=== PATIENT | male | born 1955 | race African-American/Black ===

== ENCOUNTER → 2017-11-01 | Outpatient (CLI) | payer MEDICARE, MEDICAID ==
--- NOTE | 2017-11-01 14:42 | RADIOLOGY REPORT (SQ) ---
EXAM DESCRIPTION: CHEST PA/LATERAL COMPLETED DATE/TIME: 11/01/2017 2:32 pm REASON FOR STUDY: PRE OP COMPARISON: 05/23/2015 EXAM PARAMETERS: NUMBER OF VIEWS: two views TECHNIQUE: Digital Frontal and Lateral radiographic views of the chest acquired. RADIATION DOSE: NA LIMITATIONS: none FINDINGS: LUNGS AND PLEURA: Mild hyperinflation of the lungs, stable finding. Minimal scarring or atelectasis at the lung bases. No acute pulmonary consolidation. No pneumothorax or pleural effusio n. MEDIASTINUM AND HILAR STRUCTURES: No masses or contour abnormalities. HEART AND VASCULAR STRUCTURES: Heart normal size. No evidence for failure. BONES: No acute findings. HARDWARE: None in the chest. OTHER: Partially visualized bilateral shoulder prostheses. IMPRESSION: 1 No significant interval changes since the prior examination dated 05/23/2015. Mild hy perinflation of the lungs and bibasilar minimal scar or atelectasis. No acute findings. TECHNICAL DOCUMENTATION: JOB ID: [id number] [employer]- All Rights Reserved Reading location - IP/workstation name: [email or web address]
[2017-11-01 14:53] LABS: ABSOLUTE EOSINOPHILS # (AUTO) 0.1 10^3/uL (0.0-0.6); ABSOLUTE MONOCYTES (AUTO) 0.7 10^3/uL (0.1-1.4); ABSOLUTE NEUT (AUTO) 3.7 10^3/uL (1.7-8.2); BASOPHILS % (AUTO) 0.4 % (0-2); EOSINOPHILS % (AUTO) 2.1 % (0-6); HEMATOCRIT 43.8 % (37.9-51.0); HEMOGLOBIN 14.7 g/dL (13.5-17.0); LYMPHOCYTES % (AUTO) 30.4 % (13-45); MEAN CORPUSCULAR HEMOGLOBIN 30.5 pg (27.0-33.4); MEAN CORPUSCULAR HGB CONC 33.6 g/dL (32.0-36.0); MEAN CORPUSCULAR VOLUME 91 fl (80-97); MONOCYTES % (AUTO) 10.1 % (3-13); PLATELET COUNT 323 10^3/uL (150-450); RED BLOOD COUNT 4.81 10^6/uL (4.35-5.55); RED CELL DISTRIBUTION WIDTH 13.3 % (11.5-14.0); TOTAL CELLS COUNTED % (AUTO) 100 %; WHITE BLOOD COUNT 6.5 10^3/uL (4.0-10.5)
[2017-11-01 14:58] LABS: APPEARANCE,URINE CLEAR; BILIRUBIN,URINE NEGATIVE (NEGATIVE); COLOR,URINE STRAW; GLUCOSE, URINE NEGATIVE (NEGATIVE); KETONES,URINE NEGATIVE (NEGATIVE); LEUKOCYTE ESTERASE,URINE NEGATIVE (NEGATIVE); NITRITE,URINE NEGATIVE (NEGATIVE); PROTEIN,URINE NEGATIVE (NEGATIVE); URINE SPECIFIC GRAVITY 1.004; UROBILINOGEN,URINE NEGATIVE mg/dL (<2.0)
[2017-11-01 15:24] LABS: ANION GAP 8 (5-19); BLOOD UREA NITROGEN 19 mg/dL (7-20); CALCIUM 9.8 mg/dL (8.4-10.2); CARBON DIOXIDE 31 mmol/L (22-30); CHLORIDE 101 mmol/L (98-107); GLUCOSE 90 mg/dL (75-110); POTASSIUM 4.8 mmol/L (3.6-5.0); SODIUM 140.2 mmol/L (137-145)
--- NOTE | 2017-11-01 19:43 | EKG REPORT ---
SEVERITY:- ABNORMAL ECG - SINUS RHYTHM LAD, CONSIDER LEFT ANTERIOR FASCICULAR BLOCK + IRBBB : Confirmed by: Curtis James MD 01-Nov-2017 19:43:07
== END ==
LOC: OD 13:52
PROVIDERS: ATTEND Orthopaedic Surgery
DX: M17.11 Unilateral primary osteoarthritis, right knee (principal); Z01.818 Encounter for other preprocedural examination
CPT/HCPCS: 36415; 71046; 80048; 81001; 85025; 93005; 93010

== ENCOUNTER 2017-11-22 08:45 | Inpatient (IN) | payer MEDICARE, MEDICAID ==
--- NOTE | 2017-11-29 09:27 | Physician Advisory Note ---
Physician Advisor ProgressNote .: Pursuant to the plan for Lola Winter, I have reviewed the medical record for this patient. Physician Advisor Statement: Status: 62yo with past bilat shoulder replacement/Lt ankle fx, PVD, asthma, lung collapse in past, past cocaine addiction, with OA Rt knee not sufficiently responsive to NSAIDS & injection, having 10/10 pain with walking, signif night pain, buckling/swelling/popping/crackling, unable to walk >100 ft without stopping due to pain, unable to walk up a flight of stairs or do vigorous activities, limited quite a lot with bending/kneeling/stooping, PROMIS score 33. Attending, please explicitly document "I fully expect patient to require 2MNs post-op because " [expect post-op pain management problems due to past cocaine addiction? concern for respiratory problems post-op? ...], or consider doing surgery as an outpatient (& changing to Inpatient the next day, documenting reasons, if pt unable to safely go home then). Surgical necessity: Please document all specific pre-op x-ray/scan findings present that [facility] looks for: subchondral cysts, subchondral sclerosis, periarticular osteophytes, joint space narrowing, joint subluxation, AVN/ osteonecrosis). As usual, exam findings are beautifully documented, along with nonsurgical options tried. Thanks! CK
[2017-12-01] MEDS ORDERED: IBUPROFEN 800 MG in NORMAL SALINE 250 ML IV PRN (05:00)
[2017-12-01] MEDS ORDERED: OXYCODONE HCL SR 10 MG TABLET PO PRN (05:00)
[2017-12-01] MEDS ORDERED: BUPIVACAINE INJ/PF LIPOSOME/PF 266 MG/20 ML SDV INJ PRN (05:00)
[2017-12-01] MEDS ORDERED: CEFAZOLIN INJ 1 GM VIAL IV PRN (05:00)
[2017-12-01] MEDS ORDERED: LANSOPRAZOLE 15 MG TAB.RAP.DR PO PRN (05:00)
[2017-12-01] MEDS ORDERED: VANCOMYCIN HCL 1,000 MG in DEXTROSE 5%-WATER 250 ML IV PRN (05:00)
[2017-12-01] MEDS ORDERED: LACTATED RINGERS 1000 ML IV PRN (05:00)
[2017-12-01] MEDS ORDERED: BUPIVACAINE INJ/PF LIPOSOME/PF 266 MG/20 ML SDV ONE (07:57)
[2017-12-01] MEDS ORDERED: THROMBIN (BOVINE) 5000 UNIT EPITAXIS KIT ONE (07:57)
[2017-12-01] MEDS ORDERED: THROMBIN (BOVINE) TOPICAL 20000 UNIT VIAL ONE (07:57)
[2017-12-01] MEDS ORDERED: LIDOCAINE 2% INJ-PF (20 MG/ML) 2 ML AMPUL ONE (09:12)
[2017-12-01] MEDS ORDERED: FENTANYL CITRATE INJ/PF 100 MCG/2 ML AMPUL ONE (09:36)
[2017-12-01] MEDS ORDERED: MIDAZOLAM 2 MG/2 ML INJ ONE (09:36)
[2017-12-01] MEDS ORDERED: PROPOFOL INJ 200 MG/20 ML VIAL IV ONE (09:37)
[2017-12-01] MEDS ORDERED: TRANEXAMIC ACID INJ/PF 1,000 MG/10 ML SDV IV ONE ×2 (09:37→14:00)
[2017-12-01] MEDS ORDERED: EPHEDRINE SULFATE INJ 50 MG/1 ML AMPULE ONE (09:37)
[2017-12-01] MEDS ORDERED: TETRACAINE HCL/PF 20MG/2ML AMPULE (SPINAL) ONE (10:38)
--- NOTE | 2017-12-01 11:51 | Operative Report ---
Operative Report DATE OF SURGERY: 12/01/17 PREOPERATIVE DIAGNOSIS: Right knee arthritis OPERATION: Right knee arthroplasty SURGEON: SADIE KING ANESTHESIA: Spinal TISSUE REMOVED OR ALTERED: Bone to pathology ESTIMATED BLOOD LOSS: 100 PROCEDURE: Implants used: Femur: Naveen triathlon size 6 CR femur Tibia: 5 tibia Tibial liner: 9 mm CS insert Patella: 38 mm oval patella Procedure with the patient supine on the operating table the right the limb is prepped and draped in a sterile fashion. The limb was elevated for exsanguination and the tourniquet inflated to 280 torr. A standard midline median parapatellar approach the knee is taken. Access is gained to the femoral canal through the intercondylar notch. Intramedullary alignment instrumentation used to resect 10 mm of distal femur in 5 of valgus. Sizing guide indicated a size 6 femur. Appropriate cutting jig is then used to fashion anterior posterior and chamfer cuts. A trial reduction femurs performed and this is judged to be adequate. Attention was next turned to the tibia. Using an extra medullary alignment system 9 millimeters was resected off the lateral tibial plateau. This is sized to a size 5 tibia. A trial reduction was now performed with a 6 femur and a 5 tibia using a 9 millimeters spacer. It is full extension and central patellofemoral tracking. The articular surface the patella was next resected using an oscillating saw. All trial implants were removed. Polymethylmethacrylate is mixed and used to cement the above implants in place. On adequate curing the cement excess cement was removed the tourniquet was deflated hemostasis obtained the wound is then closed in layers using interrupted Vicryl followed by bri. A sterile compressive dressing was applied and the patient returned to recovery room in satisfactory condition.
[2017-12-01] MEDS ORDERED: ACETAMINOPHEN 325 MG TABLET PO PRN (11:52)
[2017-12-01] MEDS ORDERED: RINGERS SOLUTION,LACTATED 1,000 ML IV PRN (11:52)
[2017-12-01] MEDS ORDERED: MORPHINE SULFATE 10 MG/ML INJ IM PRN (11:52)
[2017-12-01] MEDS ORDERED: ONDANSETRON HCL INJ/PF 4 MG/2 ML SDV IV PRN (11:52)
[2017-12-01] MEDS ORDERED: MAG HYDROX/AL HYDROX/SIMETH SUSP 30 ML UDCUP PO PRN (11:52)
[2017-12-01] MEDS ORDERED: ONDANSETRON 4 MG TAB.RAPDIS PO PRN (11:52)
[2017-12-01] MEDS ORDERED: MORPHINE SULFATE 10 MG/ML INJ IV PRN ×2 (11:52)
[2017-12-01] MEDS ORDERED: DIPHENHYDRAMINE HCL 50 MG/ML VIAL IV PRN (11:52)
--- NOTE | 2017-12-01 13:28 | RADIOLOGY REPORT (SQ) ---
EXAM DESCRIPTION: KNEE RIGHT 2 VIEWS COMPLETED DATE/TIME: 12/01/2017 12:41 pm REASON FOR STUDY: Post OP -Long Cassette in PACU M17.11 UNILATERAL PRIMARY OSTEOARTHRITIS, RIGHT KN EE COMPARISON: November 2010 NUMBER OF VIEWS: 2 view(s). TECHNIQUE: Digital radiographic images of the right knee post-procedure. LIMITATIONS: None. FINDINGS: BONES: No worrisome or unexpected findings post-procedure. DEVICE: Patient is status post right total knee replacement. The prosthesis appears well seated in t he distal femur and proximal tibia in the projections obtained. The previously described medullary c alcifications in the distal femur and proximal tibia are again identified. In the lateral projection there appears to be a bony defect in the distal femur. SOFT TISSUES: No worrisome findings. Expected postoperative soft tissue changes. IMPRESSION: SATISFACTORY POSTOPERATIVE RIGHT KNEE. TECHNICAL DOCUMENTATION: JOB ID: [id number] [employer]- All Rights Reserved Reading location - IP/workstation name: [email or web address]
[2017-12-01] MEDS: OXYCODONE HCL IR 5 MG TABLET PO PRN (15:25)
[2017-12-01] MEDS: PREGABALIN 75 MG CAPSULE PO SCH (17:49)
[2017-12-01] MEDS: SENNOSIDES/DOCUSATE 8.6-50 MG 1 EACH TABLET PO SCH (17:50)
[2017-12-01] MEDS: IBUPROFEN 800 MG in NORMAL SALINE 250 ML IV SCH (17:50)
[2017-12-01] MEDS: MORPHINE SULFATE 10 MG/ML INJ IV PRN ×5 (18:42→23:55)
[2017-12-01] MEDS: FLUTICASONE/SALMETEROL DISKUS 250-50 MCG/DOSE IH SCH (21:52)
[2017-12-01] MEDS: OXYCODONE HCL SR 10 MG TABLET PO SCH (21:52)
[2017-12-01] MEDS ORDERED: ZOLPIDEM TARTRATE 5 MG TABLET PO PRN (22:00)
[2017-12-01] MEDS ORDERED: VANCOMYCIN HCL 1,000 MG in DEXTROSE 5%-WATER 250 ML IV ONE (23:52)
[2017-12-02] MEDS: IBUPROFEN 800 MG in NORMAL SALINE 250 ML IV SCH ×3 (01:44→16:59)
[2017-12-02] MEDS: MORPHINE SULFATE 10 MG/ML INJ IV PRN ×6 (01:44→16:56)
[2017-12-02] MEDS: LANSOPRAZOLE 30 MG TAB.RAP.DR PO SCH (05:45)
[2017-12-02 06:43] LABS: HEMATOCRIT 37.8 % (37.9-51.0); HEMOGLOBIN 12.7 g/dL (13.5-17.0); MEAN CORPUSCULAR HEMOGLOBIN 31.1 pg (27.0-33.4); MEAN CORPUSCULAR HGB CONC 33.6 g/dL (32.0-36.0); MEAN CORPUSCULAR VOLUME 92 fl (80-97); PLATELET COUNT 253 10^3/uL (150-450); RED BLOOD COUNT 4.09 10^6/uL (4.35-5.55); RED CELL DISTRIBUTION WIDTH 13.3 % (11.5-14.0); WHITE BLOOD COUNT 8.8 10^3/uL (4.0-10.5)
[2017-12-02 07:11] LABS: ANION GAP 9 (5-19); BLOOD UREA NITROGEN 14 mg/dL (7-20); CALCIUM 8.9 mg/dL (8.4-10.2); CARBON DIOXIDE 28 mmol/L (22-30); CHLORIDE 98 mmol/L (98-107); GLUCOSE 120 mg/dL (75-110); POTASSIUM 5.1 mmol/L (3.6-5.0); SODIUM 135.1 mmol/L (137-145)
--- NOTE | 2017-12-02 07:20 | PDOC PROGRESS REPORT ---
Subjective Progress Note for:: 12/02/17 Reason For Visit: RIGHT KNEE ARTHRITIS Patient is a 62-year-old black male postop day 1 from right knee arthroplasty. Because of a prolonged spinal anesthetic the patient was not seen by physical therapy yesterday has not yet been mobilized. There has been some drainage to the dressing which has been reinforced. Ongoing issues with pain control. Physical Exam Vital Signs: Temp Pulse Resp BP Pulse Ox 36.8 C 74 19 134/80 H 95 12/02/17 00:00 12/02/17 00:00 12/02/17 00:00 12/02/17 00:00 12/02/17 00:00 Intake & Output 11/30/17 12/01/17 12/02/17 06:59 06:59 06:59 Intake Total 4928 Output Total 2500 Balance 2428 Weight 88.9 kg General appearance: PRESENT: mild distress Head exam: PRESENT: normocephalic Respiratory exam: PRESENT: unlabored Cardiovascular exam: PRESENT: RRR Pulses: PRESENT: +1 pedal pulses bilateral Vascular exam: PRESENT: normal capillary refill GI/Abdominal exam: PRESENT: soft Rectal exam: PRESENT: deferred Extremities exam: PRESENT: other - Right lower extremity dressing in place. This is been reinforced by nursing. Distal neurovascular examination is intact. Neurological exam: PRESENT: alert, awake, oriented to person, oriented to place , oriented to time, oriented to situation. ABSENT: motor sensory deficit Psychiatric exam: PRESENT: agitated Skin exam: PRESENT: dry, intact, warm. ABSENT: cyanosis, rash Results Impressions: Knee X-Ray 12/01/17 11:53 IMPRESSION: SATISFACTORY POSTOPERATIVE RIGHT KNEE. Status: Imported from PACS Assessment & Plan - Diagnosis (1) Arthritis of right knee Is this a current diagnosis for this admission?: Yes Plan: 62-year-old black male status post right knee arthroplasty postop day 1. Patient has not been mobilized with physical therapy has ongoing pain issues. Patient is not a suitable candidate for discharge today. His inpatient status will be continued. Anticipate discharge home tomorrow with home health services. - Time Time Spent with patient: 15-24 minutes Anticipated discharge: Home with Homehealth Within: within 24 hours
[2017-12-02] MEDS: OXYCODONE HCL SR 10 MG TABLET PO SCH ×2 (09:47→21:35)
[2017-12-02] MEDS: SENNOSIDES/DOCUSATE 8.6-50 MG 1 EACH TABLET PO SCH ×2 (09:47→17:01)
[2017-12-02] MEDS: PREGABALIN 75 MG CAPSULE PO SCH ×2 (09:48→17:01)
[2017-12-02] MEDS ORDERED: ASPIRIN 81 MG TABLET, ENT COATED PO SCH (10:00)
[2017-12-02] MEDS ORDERED: PRENATAL VITAMIN W DHA CAPSULE PO SCH (10:00)
[2017-12-02] MEDS: FLUTICASONE/SALMETEROL DISKUS 250-50 MCG/DOSE IH SCH ×2 (10:05→21:36)
[2017-12-03 00:12] VITALS: BP 120/73
[2017-12-03] MEDS: IBUPROFEN 800 MG in NORMAL SALINE 250 ML IV SCH (02:36)
[2017-12-03] MEDS: OXYCODONE HCL IR 5 MG TABLET PO PRN (03:28)
[2017-12-03 05:20] LABS: HEMATOCRIT 33.4 % (37.9-51.0); HEMOGLOBIN 11.3 g/dL (13.5-17.0); MEAN CORPUSCULAR HEMOGLOBIN 31.1 pg (27.0-33.4); MEAN CORPUSCULAR HGB CONC 33.9 g/dL (32.0-36.0); MEAN CORPUSCULAR VOLUME 92 fl (80-97); PLATELET COUNT 243 10^3/uL (150-450); RED BLOOD COUNT 3.64 10^6/uL (4.35-5.55); RED CELL DISTRIBUTION WIDTH 13.2 % (11.5-14.0); WHITE BLOOD COUNT 9.4 10^3/uL (4.0-10.5)
[2017-12-03] MEDS: LANSOPRAZOLE 30 MG TAB.RAP.DR PO SCH (05:30)
--- NOTE | 2017-12-03 06:42 | PDOC DISCHARGE SUMMARY ---
General - Admit/Disc Date/PCP Admission Date/Primary Care Provider: 12/01/17 08:00 POLLO BESS MD Discharge Date: 12/03/17 - Discharge Diagnosis (1) Arthritis of right knee Is this a current diagnosis for this admission?: Yes - Additional Information Resuscitation Status: Full Code Discharge Diet: As Tolerated, Regular Discharge Activity: Balance Activity w/Rest, No Driving, No tub bath Home Medications: Aspirin [Ecotrin 81 mg EC Tablet] 81 mg PO DAILY 12/01/17 Fluticasone/Salmeterol [Advair 250-50 Diskus 14 Dose/Diskus] 1 puff IH Q12 12/01 Gabapentin [Neurontin] 600 mg PO Q8 12/01/17 Montelukast Sodium [Singulair 10 mg Tablet] 10 mg PO QPM 12/01/17 Sildenafil Citrate [Viagra] 100 mg PO DAILYP PRN 12/01/17 Aspirin [Ecotrin 81 mg EC Tablet] 81 mg PO DAILY tabec 12/03/17 Oxycodone HCl [Oxy-Ir 5 mg Tablet] 5 mg PO Q6HP PRN tablet 12/03/17 History of Present Illness History of Present Illness: SANDEEP GONZALEZ is a 62 year old male with progressive right knee pain and functional disability secondary osteoarthritis. Patient is admitted for elective right knee arthroplasty. Hospital Course Hospital Course: Patient is admitted through the operating room where he undergoes uncomplicated right knee arthroplasty. Is returned to floor in satisfactory condition. He is not seen by physical therapy in the operative day because of prolonged spinal anesthetic. He subsequently seen by physical therapy on postop day 1 and makes excellent progress with physical therapy ambulating 200 feet. Dressing is changed on postop day 2 by myself. Wound is clean dry and intact. Patient is subsequent ready for discharge home with home health services. Physical Exam Vital Signs: Temp Pulse Resp BP Pulse Ox 36.4 C 103 H 18 120/73 92 12/03/17 00:00 12/03/17 00:00 12/03/17 00:00 12/03/17 00:00 12/03/17 00:00 Intake & Output 12/01/17 12/02/17 12/03/17 06:59 06:59 06:59 Intake Total 4928 1015 Output Total 2500 Balance 2428 1015 Weight 88.9 kg 97.9 kg General appearance: PRESENT: no acute distress Head exam: PRESENT: normocephalic Respiratory exam: PRESENT: unlabored Cardiovascular exam: PRESENT: RRR Pulses: PRESENT: +1 pedal pulses bilateral Vascular exam: PRESENT: normal capillary refill GI/Abdominal exam: PRESENT: soft Rectal exam: PRESENT: deferred Extremities exam: PRESENT: other - Right knee wound is well approximated with bri. Is clean and dry without drainage or erythema. Mild induration and mild tenderness. Neurological exam: PRESENT: alert, awake, oriented to person, oriented to place , oriented to time, oriented to situation. ABSENT: motor sensory deficit Psychiatric exam: PRESENT: appropriate affect, normal mood. ABSENT: homicidal ideation, suicidal ideation Skin exam: PRESENT: dry, intact, warm. ABSENT: cyanosis, rash Results Laboratory Results: 12/03/17 04:38 12/02/17 05:40 12/02/17 12/02/17 12/03/17 05:40 05:40 04:38 WBC 8.8 9.4 RBC 4.09 L 3.64 L Hgb 12.7 L 11.3 L Hct 37.8 L 33.4 L MCV 92 92 MCH 31.1 31.1 MCHC 33.6 33.9 RDW 13.3 13.2 Plt Count 253 243 Sodium 135.1 L Potassium 5.1 H Chloride 98 Carbon Dioxide 28 Anion Gap 9 BUN 14 Creatinine 0.91 Est GFR ( Amer) > 60 Est GFR (Non-Af Amer) > 60 Glucose 120 H Calcium 8.9 Impressions: Knee X-Ray 12/01/17 11:53 IMPRESSION: SATISFACTORY POSTOPERATIVE RIGHT KNEE. Status: Imported from PACS Qualifiers - * PATIENT BEING DISCHARGED WITH ANY OF THE FOLLOWING DIAGNOSIS: No VTE patient discharged on overlapping Therapy?: Yes Plan Discharge Plan: Patient to be discharged home with home health services and DME. Follow-up with Dr. Soto and [facility] for surgery in 2 weeks for staple removal.
== END 2017-12-03 09:52 | disposition home health service (06) | DRG 470 ==
LOC: INOR 12-01 08:00 → 4S 12-01 13:06
PROVIDERS: ADMIT Orthopaedic Surgery; ATTEND Orthopaedic Surgery
PROC: 0SRC0J9 Replacement of Right Knee Joint with Synthetic Substitute, Cemented, Open Approach (ICD-10-PCS; principal; 2017-12-01 10:15)
DX: M17.11 Unilateral primary osteoarthritis, right knee (principal); I73.9 Peripheral vascular disease, unspecified; J45.909 Unspecified asthma, uncomplicated; Z96.612 Presence of left artificial shoulder joint; Z96.611 Presence of right artificial shoulder joint; Z79.82 Long term (current) use of aspirin; Z79.899 Other long term (current) drug therapy; Z82.3 Family history of stroke; Z80.9 Family history of malignant neoplasm, unspecified
CPT/HCPCS: 01402; 36415; 80048; 85027; 88305; 88311; 94799; C1877; C2625; C9290; G8987-GO; G8988-GO; G8989-GO; J0690; J1741; J2250; J2270; J2704; J3010; J3370; J3490; J7050; J7060

== ENCOUNTER 2018-04-27 18:41 | Emergency (ER) | payer MEDICARE, MEDICAID ==
[2018-04-27] MEDS ORDERED: HYDROMORPHONE HCL INJ/PF 2 MG/ML AMPULE IM ONE (19:41)
--- NOTE | 2018-04-27 19:43 | ER Document Report ---
HPI - HPI Patient complains to provider of: Left hip pain Onset: Other - 5 days Onset/Duration: Persistent Quality of pain: Sharp Pain Level: 5 Context: She presents complaining of left hip pain for the past 5 days that got worse today. Patient denies any injury. Patient does have a recent right knee surgery in November of this year and still has continued right knee pain since his surgery. Patient denies any fever. Associated Symptoms: Other - Left hip pain Exacerbated by: Standing, Movement, Walking Relieved by: Denies Similar symptoms previously: Yes Recently seen / treated by doctor: No - ROS ROS below otherwise negative: Yes Systems Reviewed and Negative: Yes All other systems reviewed and negative - CONSTITUTIONAL Constitutional: DENIES: Fever, Chills - NEURO Neurology: DENIES: Headache - REPRODUCTIVE Reproductive: DENIES: : - MUSCULOSKELETAL Musculoskeletal: REPORTS: Extremity pain. DENIES: Back Pain, Neck Pain - DERM Skin Color: Normal Skin Problems: None Past Medical History - General Information source: Patient - Social History Smoking Status: Never Smoker Frequency of alcohol use: Occasional Drug Abuse: None Occupation: None Lives with: Spouse/Significant other Family History: Malignancy, Other - Asthma - Past Medical History Cardiac Medical History: Reports: Hx Peripheral Vascular Disease Pulmonary Medical History: Reports: Hx Asthma Neurological Medical History: Denies: Hx Cerebrovascular Accident, Hx Seizures Renal/ Medical History: Denies: Hx Peritoneal Dialysis Malignancy Medical History: Denies Hx Lung Cancer GI Medical History: Reports: Hx Gastroesophageal Reflux Disease Musculoskeletal Medical History: Reports Hx Arthritis - knees, shoulders, Reports Hx Musculoskeletal Trauma, Reports Other - Chronic back pain Traumatic Medical History: Reports: Hx Fractures - left ankle Past Surgical History: Reports: Hx Orthopedic Surgery - B shoulders, R ankle, R arm - Immunizations Immunizations up to date: No Hx Diphtheria, Pertussis, Tetanus Vaccination: No Hx Pneumococcal Vaccination: 07/02/12 Vertical Provider Document - CONSTITUTIONAL Agree With Documented VS: Yes Exam Limitations: No Limitations General Appearance: WD/WN, No Apparent Distress - INFECTION CONTROL TRAVEL OUTSIDE OF THE [place] IN LAST 30 DAYS: No - HEENT HEENT: Atraumatic, Normocephalic - NECK Neck: Normal Inspection - RESPIRATORY Respiratory: Breath Sounds Normal, No Respiratory Distress - CARDIOVASCULAR Cardiovascular: Regular Rate, Regular Rhythm Pulses: Normal: Dorsalis pedis - BACK Back: Normal Inspection. negative: CVA Tenderness-Right, CVA Tenderness-Left - MUSCULOSKELETAL/EXTREMETIES Musculoskeletal/Extremeties: Tender - left hip tenderness, pain increases with abduction and flexion, Edema - 2+ edema to right knee joint, patient with physio -tape overlying joint, normal skin color and temperature. negative: Eccymosis - NEURO Level of Consciousness: Awake, Alert, Appropriate Motor/Sensory: No Motor Deficit - DERM Integumentary: Warm, Dry, No Rash Course - Re-evaluation Re-evalutation: 04/27/18 20:58 Patient reports that he is been eating while lying down in bed and now is having heartburn symptoms. Patient states this is typical of heartburn he usually has and would like something while he is here. Patient given a copy of his radiology report and encouraged to follow-up with his orthopedic surgeon for further evaluation. Patient states he has an appointment with his doctor tomorrow. - Vital Signs Vital signs: Temp Pulse Resp BP Pulse Ox 98.8 F 90 18 135/80 H 94 04/27/18 18:42 04/27/18 18:42 04/27/18 18:42 04/27/18 18:42 04/27/18 18:42 - Diagnostic Test Radiology reviewed: Image reviewed, Reports reviewed Discharge - Discharge Clinical Impression: Arthritis GERD (gastroesophageal reflux disease) Qualifiers: Esophagitis presence: esophagitis presence not specified Qualified Code(s): K21.9 - Gastro-esophageal reflux disease without esophagitis Condition: Stable Disposition: HOME, SELF-CARE Instructions: Arthritis ([facility]), Oral Narcotic Medication ([facility]) Additional Instructions: Return immediately for any new or worsening symptoms Followup with your primary care provider, call tomorrow to make a followup appointment Prescriptions: Oxycodone HCl/Acetaminophen [Percocet 5-325 mg Tablet] 1 tab PO ASDIR PRN #15 tablet PRN Reason: Referrals: SEBAS PHILLIPS PA-C [Primary Care Provider] - Follow up tomorrow
--- NOTE | 2018-04-27 20:39 | RADIOLOGY REPORT (SQ) ---
EXAM DESCRIPTION: HIP LEFT AP/LATERAL COMPLETED DATE/TIME: 04/27/2018 8:02 pm REASON FOR STUDY: left hip pain COMPARISON: None. NUMBER OF VIEWS: Two views. TECHNIQUE: AP pelvis and additional frog-leg view of the left hip. LIMITATIONS: None. FINDINGS: MINERALIZATION: Normal. LEFT HIP: There are some small marginal osteophytes. Some subchondral cysts are present in the femor al head. No fracture. RIGHT HIP: Similar but milder findings. PUBIS AND ISCHIUM: No fracture. PELVIS: No fracture. SACRUM: No fracture or dislocation. No worrisome bone lesions. LOWER LUMBAR SPINE: Degenerative disc disease and spondylosis. SOFT TISSUES: No findings. OTHER: No other significant finding. 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 Left more than right. Degenerati ve disc disease and spondylosis in the lower lumbar spine. TECHNICAL DOCUMENTATION: JOB ID: [id number] [employer]- All Rights Reserved Reading location - IP/workstation name: [email or web address]
[2018-04-27] MEDS ORDERED: LIDOCAINE 2% VISCOUS SOLN 20 ML UDCUP PO ONE (20:57)
[2018-04-27] MEDS ORDERED: MAG HYDROX/AL HYDROX/SIMETH SUSP 30 ML UDCUP PO ONE (20:57)
[2018-04-27 21:15] VITALS: BP 151/89
== END 2018-04-27 21:15 | disposition home or self-care (01) ==
LOC: ER 18:41
DX: M16.0 Bilateral primary osteoarthritis of hip (principal); M47.9 Spondylosis, unspecified; M51.36 Other intervertebral disc degeneration, lumbar region; K21.9 Gastro-esophageal reflux disease without esophagitis; M25.552 Pain in left hip; M25.561 Pain in right knee; J45.909 Unspecified asthma, uncomplicated; Z98.890 Other specified postprocedural states
CPT/HCPCS: 99284; 96372; 73502; J3490; J1170

== ENCOUNTER → 2018-05-26 | Outpatient (CLI) | payer MEDICARE, MEDICAID ==
--- NOTE | 2018-05-28 13:23 | XCELERA REPORT ---
[address] [address] Lower Extremity Arterial Evaluation Name: SANDEEP GONZALEZ Age: 62 yrs Gender: Male : 1955 Patient Status: Outpatient Patient Location: Study Date: 05/26/2018 11:12 AM Procedure: A color flow and duplex scan of the lower extremity arteries was performed bilaterally with velocity and waveform anaylsis. Ankle brachial indicies performed. Reason For Study: ULCER Ordering Physician: EDE WOODARD Performed By: Harrison Aadm Measurements and Calculations Right Left CLINICAL NURSING INSTRUCTOR PSV 112.4 108.1 cm/sec Prox PFA PSV -61.5 -81.0 cm/sec Prox SFA PSV -86.9 -89.9 cm/sec Mid SFA PSV -107.5 -118.2cm/sec Dist SFA PSV -101.2 -102.5cm/sec Prox Pop A PSV 82.0 70.3 cm/sec Dist KIKI PSV 92.8 111.0 cm/sec Dist SATELLITE TV TECHNICIAN PSV 98.7 104.6 cm/sec Michel Pedis PSV -73.3 -191.7cm/sec Right Side Arterial Evaluation Normal velocity and triphasic waveforms noted from the Common Femoral artery to the infrageniculate vessels. 0-19% stenosis at the Femoral artery. Ankle Brachial index is 1.09. PPG's are multuphasic with normal amplitude. Left Side Arterial Evaluation Normal velocity and triphasic waveforms noted from the Common Femoral artery to the infrageniculate vessels. 0-19% stenosis at the Femoral artery. Ankle Brachial index is 1.19. PPG's are multuphasic with normal amplitude. Interpretation Summary No hemodynamically significant lesions in the bilateral lower extremities, on duplex imaging, at rest. RAMIRO's and PPG's are normal, suggesting normal arterial systems. : EDE WOODARD > Jon Stewart
== END ==
LOC: SP 10:46
PROVIDERS: ATTEND Preventive Medicine Undersea and Hyperbaric Medicine
DX: L97.512 Non-pressure chronic ulcer of other part of right foot with fat layer exposed (principal); I73.89 Other specified peripheral vascular diseases
CPT/HCPCS: 93922; 93925

== ENCOUNTER → 2018-07-29 | Outpatient (CLI) | payer MEDICARE, MEDICAID ==
--- NOTE | 2018-07-29 14:13 | RADIOLOGY REPORT (SQ) ---
EXAM DESCRIPTION: KNEE LEFT 2 VIEWS COMPLETED DATE/TIME: 07/29/2018 1:56 pm REASON FOR STUDY: PAIN IN LT KNEE M25.562 PAIN IN LEFT KNEE COMPARISON: None. NUMBER OF VIEWS: Two views. TECHNIQUE: AP and lateral radiographic images acquired of the left knee. LIMITATIONS: None. FINDINGS: MINERALIZATION: Serpiginous sclerosis throughout the distal femur and proximal tibia, like ly related to prior bone infarcts. No evidence of osteopenia. BONES: Chronic appearing fragmentation of the superolateral patella JOINT: Moderate joint effusion. SOFT TISSUES: No soft tissue swelling. No radio-opaque foreign body. OTHER: No other significant finding. IMPRESSION: 1. 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 Recom mend correlation with patellar point tenderness. 2. Moderate joint effusion. 3. Serpiginous sclerosis within the distal femur and proximal tibia suggestive of prior bone infarct s. TECHNICAL DOCUMENTATION: JOB ID: [id number] [employer]- All Rights Reserved Reading location - IP/workstation name: [email or web address]
== END ==
LOC: OD 13:43
PROVIDERS: ATTEND Internal Medicine
DX: M25.562 Pain in left knee (principal); M25.462 Effusion, left knee

== ENCOUNTER 2018-12-21 06:40 | Day surgery (SDC) | payer MEDICARE, MEDICAID ==
[~2018-12-21 06:40] MED LIST: CEFAZOLIN 1 GM/D5W RTU 1 GM/50 ML RTUPB IV PRN
[2018-12-21] MEDS ORDERED: FENTANYL CITRATE INJ/PF 100 MCG/2 ML AMPUL ONE ×2 (06:44→09:04)
[2018-12-21] MEDS ORDERED: LIDOCAINE 2% INJ-PF (20 MG/ML) 10 ML AMPUL ONE (06:44)
[2018-12-21] MEDS ORDERED: MIDAZOLAM 2 MG/2 ML INJ ONE (06:44)
[2018-12-21] MEDS ORDERED: BUPIVACAINE HCL 0.5 % INJ/PF 30 ML SDV ONE (06:45)
[2018-12-21] MEDS ORDERED: KETOROLAC TROMETHAMINE 60 MG/2 ML SDV ONE (06:45)
[2018-12-21] MEDS ORDERED: PROPOFOL INJ 200 MG/20 ML VIAL IV ONE (06:45)
[2018-12-21] MEDS ORDERED: LIDOCAINE 2% INJ (20 MG/ML) 20 ML MDV ONE (06:45)
[2018-12-21] MEDS ORDERED: NORMAL SALINE INJ/PF 0.9% 10 ML SDV ONE (07:10)
[2018-12-21] MEDS ORDERED: DIPHENHYDRAMINE HCL 50 MG/ML VIAL ONE (07:34)
[2018-12-21] MEDS: BACITRACIN INJ 50,000 UNIT VIAL ONE ×2 (08:47→09:35)
[2018-12-21] MEDS: POLYMYXIN B SULFATE INJ 500000 UNIT VIAL ONE ×2 (08:47→09:35)
[2018-12-21] MEDS: NORMAL SALINE INJ/PF 0.9% 10 ML SDV ONE ×2 (08:48→09:35)
[2018-12-21] MEDS: BUPIVACAINE INJ/PF LIPOSOME/PF 266 MG/20 ML SDV ONE ×3 (09:48→09:52)
--- NOTE | 2018-12-21 11:01 | SURGICARE OPERATIVE REPORT E ---
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 PROCEDURE PERFORMED: Cooley bunionectomy with implant of the first metatarsophalangeal joint, right foot. SURGEON: EDE WOODARD DPM STUDENT OFFICER: Trish Mckinney DPM PROCEDURE: On 12/21/2018 the patient was admitted to [facility] Department with complaints of a painful right foot. The patient was taken to the operating room where following the induction of intravenous sedation and regional local anesthesia, the patient's right foot and leg were prepped and draped in the usual sterile manner. A tourniquet was placed on the proximal ankle malleoli, Esmarch was applied, and tourniquet was inflated to a level of 250 mmHg. Esmarch was removed. Sterile draping was completed, and the following procedure was performed. Attention was directed to the patient's first metatarsophalangeal joint of the right foot where a 5 cm curvilinear incision was placed medial to the long extensor tendon. It was deepened through subcutaneous tissue and superficial fascia. All bleeding vessels were clamped, ligated, and Bovied as necessary for hemostasis. The long extensor tendon was identified and retracted laterally for preservation. An incision was made in the capsular and periosteal structures in a similar fashion as well as the radial skin incision and freed from its osseous attachments. There was an extreme amount of hypertrophic bone about the metatarsophalangeal joint with very little motion noted. Utilizing a combination of sagittal saw, rongeur, osteotomes, and mallet, all redundant bone was removed as best as possible. Osteotomy was performed into the base of the proximal phalanx in a transverse fashion approximately 1 cm distal to the first metatarsal head. The remaining portion of the proximal phalanx base was removed from the wound en toto. More bone of the head of the first metatarsal was likewise osteotomized from the dorsal plantar fascia and squaring off the end of the bone, removing articular cartilage bone. The metatarsal and phalanx were likewise refashioned and the bulk was reduced with rongeur, osteotome, rasp. The base of the proximal phalanx plantar was freed from its surrounding soft tissue attachments. The long extensor tendon was identified, and it was noted that the sesamoids were extremely hypertrophied and extending well under what was previously the base of the proximal phalanx. At that time the long extensor tendon was isolated and retracted, and utilizing a power saw the sesamoids were then osteotomized partially mid sesamoid, and the distal portion was removed for debulking. Utilizing a McGlamry elevator the remaining portions of the sesamoids were then freed from the osseous and soft tissue attachments at the plantar aspect of the metatarsal so they can retract. It was felt at this time that adequate bone resection and reduction had been obtained. Attention was then directed to the first metatarsal shaft where utilizing a side-cutting bur a drill hole was placed located proximally centrally. It was enlarged. Likewise, a similar hole was then placed into the base of the proximal phalanx in more of a dorsal orientation. Drill holes were verified with fluoroscopic studies. Utilizing a power rasp the canals were then rasped and fashioned to accept the proximal and distal stems of the implant. Sizers were inserted. Hand reamers were inserted. It was felt that a 3S implant was appropriate size. Sizer was inserted. This was further verified with fluoroscopic studies. The area was then flushed with copious amounts of sterile antibiotic solution and inspected for any soft tissue or osseous debris with none being noted. At that time a 3S double-stem implant with grommets was then inserted into the metatarsal and then into the base of the proximal phalanx. The capsular and periosteal structures were then coapted and maintained with simple interrupted suture of 3-0 Vicryl. Further fluoroscopic studies were obtained. Implant positioning and alignment of the toe was excellent at this time. At that time the long extensor tendon was lengthened at its distal most portion due to a slight contracture. It was sutured with 2-0 FiberWire. At that time the subcutaneous tissue and superficial fascia was then coapted and maintained with simple interrupted suture of 4-0 Vicryl. Exparel was then injected subcuticular in the periwound area. The skin incisions were then coapted and maintained with interrupted horizontal mattress suture of 4-0 nylon. A sterile dressing consisting of Lyndon silk, 4 x 4s, Oneida, Kerlix, and Coban was applied to the patient's right foot. The tourniquet was deflated. Capillary filling time was noted to be instantaneous to all digits. The patient appeared to tolerate surgery and anesthesia well and left the OR in fair condition with all vital signs stable and was taken to the recovery room where further monitored by Anesthesia Department. DICTATING PHYSICIAN: EDE WOODARD DPM [id number] PHY#: [id number] ID: [id number] JOB#: [id number] ACCT: [id number] cc:EDE WOODARD DPM >
--- NOTE | 2018-12-21 11:41 | RADIOLOGY REPORT (SQ) ---
EXAM DESCRIPTION: NO CHG FLUORO; TOE RIGHT COMPLETED DATE/TIME: 12/21/2018 10:39 am REASON FOR STUDY: BUNIONECTOMY W/ IMPLANT RT TOE ASST WITH FLUORO IN OR COMPARISON: None FLUOROSCOPY TIME: 15 seconds 2 Images saved to PACS LIMITATIONS: None. PROCEDURE: Intraoperative fluoroscopic images obtained to evaluate progress. FINDINGS: Evidence of 1st MTP bunionectomy and joint prostheses. Please see operative report for d etailed description. IMPRESSION: Intraoperative images obtained to evaluate progress. COMMENT: PQRS 6045F: Fluoroscopy time of the procedure is documented in the report. TECHNICAL DOCUMENTATION: JOB ID: [id number] [employer]- All Rights Reserved Reading location - IP/workstation name: [email or web address]
--- NOTE | 2018-12-21 11:41 | RADIOLOGY REPORT (SQ) ---
EXAM DESCRIPTION: NO CHG FLUORO; TOE RIGHT COMPLETED DATE/TIME: 12/21/2018 10:39 am REASON FOR STUDY: BUNIONECTOMY W/ IMPLANT RT TOE ASST WITH FLUORO IN OR COMPARISON: None FLUOROSCOPY TIME: 15 seconds 2 Images saved to PACS LIMITATIONS: None. PROCEDURE: Intraoperative fluoroscopic images obtained to evaluate progress. FINDINGS: Evidence of 1st MTP bunionectomy and joint prostheses. Please see operative report for d etailed description. IMPRESSION: Intraoperative images obtained to evaluate progress. COMMENT: PQRS 6045F: Fluoroscopy time of the procedure is documented in the report. TECHNICAL DOCUMENTATION: JOB ID: [id number] [employer]- All Rights Reserved Reading location - IP/workstation name: [email or web address]
--- NOTE | 2018-12-22 14:44 | SURGICARE DISCHARGE SUMMARY E ---
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 PROCEDURE PERFORMED: Cooley bunionectomy with insertion of double-stem Saleh implant on 12/21/2018. The patient was admitted to [facility] with complaints of painful right foot. The patient was taken to the operating room, where the above procedure was performed. The patient tolerated surgery and anesthesia well, and was later discharged from [facility] with prescriptions for Percocet, Phenergan, and cephalexin. Given postoperative surgical shoe and a postoperative appointment for one week. DICTATING PHYSICIAN: EDE WOODARD DPM [id number] PHY#: [id number] ID: [id number] JOB#: [id number] ACCT: [id number] cc:EDE WOODARD DPM >
== END 2018-12-21 11:25 | disposition home or self-care (01) ==
LOC: SC 06:40
PROVIDERS: ATTEND Preventive Medicine Undersea and Hyperbaric Medicine
DX: M19.071 Primary osteoarthritis, right ankle and foot (principal); M20.21 Hallux rigidus, right foot; M20.41 Other hammer toe(s) (acquired), right foot; J45.909 Unspecified asthma, uncomplicated; Z79.51 Long term (current) use of inhaled steroids; Z79.899 Other long term (current) drug therapy
CPT/HCPCS: 28292; 73660; C1776; J2250; J3490 ×6; J0690; J1200; J1885; J3010; J2704; C9290; 01480

== ENCOUNTER 2019-01-09 18:20 | Inpatient (IN) | payer MEDICARE, MEDICAID ==
--- NOTE | 2019-01-09 21:28 | ER Document Report ---
ED Medical Screen (RME) - General Chief Complaint: Wound Infection Stated Complaint: FOOT PAIN Time Seen by Provider: 01/09/19 21:25 Primary Care Provider: EDE GRISSOM DPM [Primary Care Provider] - Follow up as needed Mode of Arrival: Wheelchair Information source: Patient Notes: 63-year-old male presented to ED for stating that he was supposed to be admitted to the hospital for week of antibiotics. He states he had surgery by Dr. Grissom in November. Patient states that Dr. Grissom told him that he was coming to the emergency room to get admitted and that he had set up the admission with 1 of the doctors. I spoke with charge nurse who states that the doctor they spoke with did not have admitting. Privileges and the patient would need to go to the emergency room process first. We will order blood work and he will be seen by a provider in the emergency room. I have greeted and performed a rapid initial assessment of this patient. A comprehensive ED assessment and evaluation of the patient, analysis of test results and completion of medical decision making process will be conducted by an additional ED providers. Dictation of this chart was performed using voice recognition software; therefore, there may be some unintended grammatical errors. TRAVEL OUTSIDE OF THE [place] IN LAST 30 DAYS: No - Related Data Allergies/Adverse Reactions: No Known Allergies Allergy (Verified 04/27/18 18:43) Past Medical History - Past Medical History Cardiac Medical History: Reports: Hx Peripheral Vascular Disease Denies: Hx Atrial Fibrillation, Hx Congestive Heart Failure, Hx Coronary Artery Disease, Hx Heart Attack, Hx Hypercholesterolemia, Hx Hypertension, Hx Pulmonary Embolism, Hx Heart Murmur Pulmonary Medical History: Reports: Hx Asthma - MEDICATED Denies: Hx Bronchitis, Hx COPD, Hx Pneumonia, Hx Respiratory Failure, Hx Sleep Apnea, Hx Tuberculosis Neurological Medical History: Denies: Hx Cerebrovascular Accident, Hx Seizures Endocrine Medical History: Denies: Hx Hyperthyroidism, Hx Hypothyroidism Renal/ Medical History: Denies: Hx Peritoneal Dialysis Malignancy Medical History: Denies Hx Lung Cancer GI Medical History: Reports: Hx Gastroesophageal Reflux Disease. Denies: Hx Crohn's Disease, Hx Hepatitis, Hx Hiatal Hernia, Hx Irritable Bowel, Hx Liver Failure, Hx Pancreatitis, Hx Ulcer Musculoskeltal Medical History: Reports Hx Arthritis - knees, shoulders, Denies Hx Fibromyalgia, Denies Hx Muscular Dystrophy, Reports Hx Musculoskeletal Trauma Traumatic Medical History: Reports: Hx Fractures - left ankle Infectious Medical History: Denies: Hx Hepatitis Past Surgical History: Reports: Hx Orthopedic Surgery - B shoulders, R ankle, R arm. Denies: Hx Appendectomy, Hx Bowel Surgery, Hx Cholecystectomy, Hx Colostomy, Hx Coronary Artery Bypass Graft, Hx Gastric Bypass Surgery, Hx Herniorrhaphy, Hx Open Heart Surgery, Hx Pacemaker, Hx Tonsillectomy - Immunizations Immunizations up to date: No Hx Diphtheria, Pertussis, Tetanus Vaccination: No History of Influenza Vaccine for 04/2017 - 09/2017 Season: Yes Influenza Administration Date for 04/2017 - 09/2017 Season: 03/26/17 Physical Exam - Vital signs Vitals: Temp Pulse Resp BP Pulse Ox 98.2 F 84 18 117/56 L 100 01/09/19 19:46 01/09/19 19:46 01/09/19 19:46 01/09/19 19:46 01/09/19 19:46 Course - Vital Signs Vital signs: Temp Pulse Resp BP Pulse Ox 98.2 F 84 18 117/56 L 100 01/09/19 19:46 01/09/19 19:46 01/09/19 19:46 01/09/19 19:46 01/09/19 19:46 Doctor's Discharge - Discharge Referrals: EDE GRISSOM DPM [Primary Care Provider] - Follow up as needed
[2019-01-09] MEDS ORDERED: MAGNESIUM HYDROXIDE SUSP 30 ML UDCUP PO PRN (21:46)
[2019-01-09] MEDS ORDERED: ZOLPIDEM TARTRATE 5 MG TABLET PO PRN (21:46)
[2019-01-09] MEDS ORDERED: MAG HYDROX/AL HYDROX/SIMETH SUSP 30 ML UDCUP PO PRN (21:46)
[2019-01-09] MEDS ORDERED: ONDANSETRON HCL INJ/PF 4 MG/2 ML SDV IV PRN (21:46)
[2019-01-09] MEDS ORDERED: NICOTINE 21 MG/24 HR PATCH.TD24 TD PRN (21:55)
[2019-01-09] MEDS ORDERED: HYDRALAZINE HCL INJ/PF 20 MG/1 ML SDV IV PRN (21:55)
[2019-01-09] MEDS ORDERED: LEVALBUTEROL HCL NEB 0.63 MG/3 ML AMPUL NEB PRN (21:55)
[2019-01-09] MEDS ORDERED: MORPHINE SULFATE 10 MG/ML INJ IV PRN ×2 (21:55→22:21)
[2019-01-09] MEDS ORDERED: ACETAMINOPHEN 325 MG TABLET PO PRN (21:55)
[2019-01-09] MEDS ORDERED: MEROPENEM 1 GM VIAL IV PRN (22:00)
[2019-01-09] MEDS ORDERED: VANCOMYCIN HCL INJ 1000 MG VIAL IV SCH (22:00)
[2019-01-09] MEDS ORDERED: MEROPENEM 1 GM in NORMAL SALINE 50 ML IV ONE (22:30)
[2019-01-10 00:49] LABS: ABSOLUTE BASOPHILS # (AUTO) 0.1 10^3/uL (0.0-0.2); ABSOLUTE EOSINOPHILS # (AUTO) 0.2 10^3/uL (0.0-0.6); ABSOLUTE MONOCYTES (AUTO) 0.5 10^3/uL (0.1-1.4); ABSOLUTE NEUT (AUTO) 3.5 10^3/uL (1.7-8.2); BASOPHILS % (AUTO) 1.1 % (0-2); HEMATOCRIT 40.8 % (37.9-51.0); HEMOGLOBIN 13.6 g/dL (13.5-17.0); LYMPHOCYTES % (AUTO) 31.8 % (13-45); MEAN CORPUSCULAR HEMOGLOBIN 31.4 pg (27.0-33.4); MEAN CORPUSCULAR HGB CONC 33.4 g/dL (32.0-36.0); MEAN CORPUSCULAR VOLUME 94 fl (80-97); MONOCYTES % (AUTO) 7.7 % (3-13); PLATELET COUNT 317 10^3/uL (150-450); RED BLOOD COUNT 4.35 10^6/uL (4.35-5.55); RED CELL DISTRIBUTION WIDTH 13.7 % (11.5-14.0); SEGMENTED NEUTROPHILS % (AUTO) 56.4 % (42-78); TOTAL CELLS COUNTED % (AUTO) 100 %; WHITE BLOOD COUNT 6.3 10^3/uL (4.0-10.5)
[2019-01-10 01:31] LABS: ALANINE AMINOTRANSFERASE 41 U/L (21-72); ALBUMIN 4.6 g/dL (3.5-5.0); ALKALINE PHOSPHATASE 96 U/L (38-126); ANION GAP 12 (5-19); ASPARTATE AMINO TRANSFERASE 55 U/L (17-59); BILIRUBIN,DIRECT 0.4 mg/dL (0.0-0.4); BILIRUBIN,TOTAL 0.4 mg/dL (0.2-1.3); BLOOD UREA NITROGEN 16 mg/dL (7-20); CALCIUM 9.8 mg/dL (8.4-10.2); CARBON DIOXIDE 22 mmol/L (22-30); CHLORIDE 102 mmol/L (98-107); GLUCOSE 88 mg/dL (75-110); POTASSIUM 4.7 mmol/L (3.6-5.0); SODIUM 136.3 mmol/L (137-145); TOTAL PROTEIN 7.9 g/dL (6.3-8.2)
[2019-01-10] MEDS ORDERED: VANCOMYCIN HCL INJ 1000 MG VIAL IV PRN (02:29)
[2019-01-10] MEDS: MORPHINE SULFATE 10 MG/ML INJ IV PRN ×4 (02:55→22:12)
[2019-01-10] MEDS ORDERED: VANCOMYCIN HCL 2,000 MG in DEXTROSE 5%-WATER 500 ML IV ONE (03:00)
[2019-01-10] MEDS ORDERED: MEROPENEM 1 GM VIAL ONE (03:18)
[2019-01-10] MEDS ORDERED: VANCOMYCIN HCL INJ 1000 MG VIAL ONE (03:20)
[2019-01-10] MEDS: MEROPENEM 1 GM in NORMAL SALINE 50 ML IV SCH ×2 (05:09→15:20)
[2019-01-10] MEDS: HEPARIN SOD (PORCINE) 5,000 UNIT/ML 1 ML SYRINGE SUBCUT SCH ×3 (05:10→22:17)
--- NOTE | 2019-01-10 06:43 | PDOC H&P ---
History of Present Illness Admission Date/PCP: 01/09/2019 22:03 EDE GRISSOM DPM Patient complains of: Infected foot wound History of Present Illness: SANDEEP GONZALEZ is a 63 year old male who presented to the emergency room with Dr. Romero's direction for admission to treat his right great toe ulcer. He admits that he has had an ulceration on the right great toe dorsal surface for approximately 5 months. The wound extends down into the deep tissues of the toe and may involve the inner phalangeal joint and bones of the toe. A culture was performed on his toe recently and was positive for Pseudomonas aeruginosa and Enterococcus faecalis. He admits that the wound has been healing poorly for the last few weeks and may actually have been getting worse. He does have constant, moderate to severe achy pain present in the right great toe. Weightbearing and movement makes the pain worse and it does not radiate. In the emergency room his laboratory evaluation was unremarkable. He was subsequently admitted to the hospital for further evaluation and treatment with consultation of Dr. Grissom for management of his right great toe wound. Past Medical History Cardiac Medical History: Reports: Peripheral Vascular Disease Denies: Atrial Fibrillation, Congestive Heart Failure, Coronary Artery Disease, DVT, Myocardial Infarction, Hyperlipidema, Hypertension, Pulmonary Embolism, Heart Murmur Pulmonary Medical History: Reports: Asthma - MEDICATED Denies: Bronchitis, Chronic Obstructive Pulmonary Disease (COPD), Pneumonia, Respiratory Failure, Sleep Apnea, Tuberculosis EENT Medical History: Denies: Cataracts, Ears - Hearing aids Neurological Medical History: Denies: Hemorrhagic CVA, Ischemic CVA, Multiple Sclerosis, Seizures Endocrine Medical History: Reports: Obesity Denies: Diabetes Mellitus Type 1, Diabetes Mellitus Type 2, Hyperthyroidism, Hypothyroidism Renal/ Medical History: Denies: Chronic Kidney Disease, Nephrolithiasis Malignancy Medical History: Reports: None GI Medical History: Reports: Gastroesophageal Reflux Disease Denies: Cirrhosis, Crohn's Disease, Diverticulitis, Hepatitis, Hiatal Hernia, Ulcerative Colitis Musculoskeltal Medical History: Reports: Arthritis - Osteoarthritis affecting multiple bilateral joints, Other - Chronic back pain secondary to spinal stenosis Denies: Fibromyalgia, Gout Skin Medical History: Denies: Eczema, Psoriasis Psychiatric Medical History: Denies: Alcohol Dependency, Substance Abuse, Tobacco Dependency Traumatic Medical History: Reports: Other - Left ankle fracture Hematology: Denies: Anemia, Bleeding Tendencies Infectious Medical History: Reports: None Past Surgical History Past Surgical History: Reports: Orthopedic Surgery - B bilateral shoulders, R ankle, R arm Social History Information Source: Patient Lives with: Alone Smoking Status: Former Smoker Frequency of Alcohol Use: Occasional - Usually 1 or 2 beers daily 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 denies: CAD, DM Parental Family History Reviewed: Yes Children Family History Reviewed: No Sibling(s) Family History Reviewed.: Yes Medication/Allergy Home Medications: Fluticasone/Salmeterol [Advair 250-50 Diskus 14 Dose/Diskus] 1 puff IH Q12 12/01/17 Gabapentin [Neurontin] 600 mg PO Q8 12/01/17 Montelukast Sodium [Singulair 10 mg Tablet] 10 mg PO QPM 12/01/17 Sulfamethoxazole/Trimethoprim [Sulfamethoxazole-Tmp Ss Tablet] 1 each PO BID 12/20/18 Cephalexin [Cephalexin 500 MG Tablet] 1,000 mg PO BID 12/21/18 Oxycodone HCl/Acetaminophen [Percocet 10-325 Mg Tablet] 1 each PO ASDIR PRN 12/21/18 Promethazine HCl [Phenergan 25 mg Tablet] 25 mg PO ASDIR PRN 12/21/18 Allergies/Adverse Reactions: No Known Allergies Allergy (Verified 04/27/18 18:43) Review of Systems Constitutional: ABSENT: chills, fever(s) Eyes: ABSENT: visual disturbances, other - Eye pain Ears: ABSENT: hearing changes, other - Ear pain Nose, Mouth, and Throat: ABSENT: mouth pain, sore throat Cardiovascular: ABSENT: chest pain, dyspnea on exertion, orthropnea, palpitations Respiratory: ABSENT: cough, dyspnea Gastrointestinal: ABSENT: abdominal pain, constipation, diarrhea, nausea, vomiting Genitourinary: ABSENT: dysuria, hematuria Musculoskeletal: ABSENT: back pain, joint swelling, muscle weakness Integumentary: PRESENT: as per HPI, wounds. ABSENT: pruritus, rash Neurological: ABSENT: confusion, convulsions, focal weakness, memory loss, syncope Psychiatric: ABSENT: anxiety, depression Endocrine: ABSENT: cold intolerance, heat intolerance Hematologic/Lymphatic: ABSENT: easy bleeding, easy bruising Physical Exam Vital Signs: Temp Pulse Resp BP Pulse Ox 98.2 F 84 18 117/56 L 100 01/09/19 19:46 01/09/19 19:46 01/09/19 19:46 01/09/19 19:46 01/09/19 19:46 Intake & Output 01/07/19 01/08/19 01/09/19 23:59 23:59 23:59 Weight 174.9 kg General appearance: PRESENT: no acute distress, cooperative, morbidly obese Head exam: PRESENT: atraumatic, normocephalic Eye exam: ABSENT: conjunctival injection, scleral icterus Ear exam: PRESENT: normal external ear exam. ABSENT: bleeding, drainage Mouth exam: PRESENT: dry mucosa, neck supple Neck exam: ABSENT: thyromegaly, tracheal deviation Respiratory exam: PRESENT: clear to auscultation janet, symmetrical, unlabored Cardiovascular exam: PRESENT: RRR. ABSENT: clicks, gallop, rubs Pulses: PRESENT: normal radial pulses, normal dorsalis pedis pul Vascular exam: PRESENT: normal capillary refill. ABSENT: pallor GI/Abdominal exam: PRESENT: normal bowel sounds, soft Rectal exam: PRESENT: deferred Extremities exam: PRESENT: pedal edema, tenderness - Right great toe. ABSENT: joint swelling Musculoskeletal exam: ABSENT: deformity, dislocation Neurological exam: PRESENT: alert, oriented to person, oriented to place, oriented to time, oriented to situation, CN II-XII grossly intact. ABSENT: motor sensory deficit Psychiatric exam: PRESENT: appropriate affect, normal mood Skin exam: PRESENT: dry, warm, other. ABSENT: jaundice, rash, urticaria Assessment and Plan - Diagnosis (1) Foot infection Is this a current diagnosis for this admission?: Yes Plan: Patient be treated with intravenous antibiotics utilizing vancomycin and meropenem. Patient has Pseudomonas aeruginosa and Enterococcus faecalis growing in his wound culture. Daily CBC, metabolic profile and magnesium levels will be obtained to follow the course of treatment and observe for potential treatment related problems. (2) PVD (peripheral vascular disease) Is this a current diagnosis for this admission?: Yes Plan: Patient be maintained on a cardiac diet. (3) Morbid obesity Is this a current diagnosis for this admission?: Yes Plan: Patient will receive a dietary consultation for lifestyle changes and diet changes to affect weight loss and reduce his peripheral vascular disease risks. (4) Asthma dependent on inhaled steroids Is this a current diagnosis for this admission?: Yes Plan: Patient will be continued on his usual asthma medications or formula therapeutic substitutions during his hospital stay. - Time Time Spent with patient: 25-34 minutes Medications reviewed and adjusted accordingly: Yes Anticipated discharge: Home - Inpatient Certification Based on my medical assessment, after consideration of the patient's comorbidities, presenting symptoms, or acuity I expect that the services needed warrant INPATIENT care.: Yes I certify that my determination is in accordance with my understanding of Medicare's requirements for reasonable and necessary INPATIENT services [42 CFR 412.3e].: Yes Medical Necessity: Failure to Improve With Outpatient Therapy, Significant Comorbidiites Make Outpatient Treatment Too Risky, Need Close Monitoring Due to Risk of Patient Decompensation, Need for Pain Control, Need for IV Antibiotics, Need for Surgery, Risk of Complication if Not Cared For in Hospital
--- NOTE | 2019-01-10 06:43 | ADVANCED CARE ---
- Diagnosis (1) Foot infection Diagnosis Current: Yes (2) PVD (peripheral vascular disease) Diagnosis Current: Yes (3) Morbid obesity Diagnosis Current: Yes (4) Asthma dependent on inhaled steroids Diagnosis Current: Yes Attendance: Patient and myself Resuscitation Status: Full Code Discussion: Patient wants to be a full CODE STATUS patient for any cardiac or respiratory arrest that may occur during his hospital course. He wishes to name Gemma Vickers as his designated surrogate medical decision-maker. Care Planning Goals: 1. Patient will be full CODE STATUS. 2. Gemma Vickers will be the patient's designated surrogate medical decision maker. Document(s) Completed: The following injuries will be made to the patient record and medical orders via EMR entry: 1. Patient will be full CODE STATUS. 2. Gemma Vickers will be the patient's designated surrogate medical decision maker. Time Spent: 15 minutes
[2019-01-10 06:48] LABS: ANION GAP 8 (5-19); BLOOD UREA NITROGEN 16 mg/dL (7-20); CALCIUM 9.2 mg/dL (8.4-10.2); CARBON DIOXIDE 24 mmol/L (22-30); CHLORIDE 103 mmol/L (98-107); CHOLESTEROL 182.58 mg/dL (0-200); GLUCOSE 85 mg/dL (75-110); POTASSIUM 4.5 mmol/L (3.6-5.0); SODIUM 135.4 mmol/L (137-145); TRIGLYCERIDES 121 mg/dL (<150)
[2019-01-10 06:59] LABS: DIRECT LDL 122 mg/dL (<100)
[2019-01-10 07:03] LABS: FREE T3 3.97 pg/mL (2.77-5.27); FREE T4 (FREE THYROXINE) 0.74 ng/dL (0.78-2.19)
[2019-01-10 07:10] LABS: APPEARANCE,URINE SLIGHTLY-CLOUDY; BILIRUBIN,URINE NEGATIVE (NEGATIVE); COLOR,URINE YELLOW; GLUCOSE, URINE NEGATIVE (NEGATIVE); KETONES,URINE NEGATIVE (NEGATIVE); LEUKOCYTE ESTERASE,URINE NEGATIVE (NEGATIVE); NITRITE,URINE NEGATIVE (NEGATIVE); PROTEIN,URINE NEGATIVE (NEGATIVE); URINE SPECIFIC GRAVITY 1.021; UROBILINOGEN,URINE NEGATIVE mg/dL (<2.0)
[2019-01-10 07:17] LABS: THYROID STIMULATING HORMONE 6.2 uIU/mL (0.47-4.68)
[2019-01-10 07:36] LABS: URINE AMPHETAMINES SCREEN NEGATIVE; URINE BARBITURATES SCREEN NEGATIVE; URINE BENZODIAZEPINES SCREEN NEGATIVE; URINE COCAINE SCREEN NEGATIVE; URINE MARIJUANA (THC) SCREEN NEGATIVE; URINE METHADONE SCREEN NEGATIVE; URINE PHENCYCLIDINE SCREEN NEGATIVE
[2019-01-10 08:13] LABS: HEMATOCRIT 37.7 % (37.9-51.0); HEMOGLOBIN 12.8 g/dL (13.5-17.0); MEAN CORPUSCULAR HEMOGLOBIN 31.5 pg (27.0-33.4); MEAN CORPUSCULAR HGB CONC 33.9 g/dL (32.0-36.0); MEAN CORPUSCULAR VOLUME 93 fl (80-97); PLATELET COUNT 272 10^3/uL (150-450); RED BLOOD COUNT 4.06 10^6/uL (4.35-5.55); RED CELL DISTRIBUTION WIDTH 13.5 % (11.5-14.0); WHITE BLOOD COUNT 5.4 10^3/uL (4.0-10.5)
[2019-01-10] MEDS: DOCUSATE SODIUM 100 MG CAPSULE PO SCH ×2 (09:51→17:24)
[2019-01-10] MEDS: FLUTICASONE/VILANTEROL 200-25 MCG/DOSE IH SCH (10:04)
[2019-01-10] MEDS: FAMOTIDINE INJ/PF 20 MG/2 ML SDV IV SCH ×2 (10:04→22:16)
--- NOTE | 2019-01-10 11:08 | RADIOLOGY REPORT (SQ) ---
EXAM DESCRIPTION: FOOT RIGHT 2 VIEWS COMPLETED DATE/TIME: 01/10/2019 9:31 am REASON FOR STUDY: r/o osteo COMPARISON: 12/21/2018 NUMBER OF VIEWS: Two views. TECHNIQUE: AP and lateral radiographic images acquired of the right foot. LIMITATIONS: None. FINDINGS: MINERALIZATION: Normal. BONES: No acute fracture or dislocation. No worrisome bone lesions. JOINTS: Intact prosthesis 1st metatarsophalangeal joint. SOFT TISSUES: Dystrophic calcification. No foreign body. OTHER: No other significant finding. IMPRESSION: No evidence of osteomyelitis. TECHNICAL DOCUMENTATION: JOB ID: [id number]- All Rights Reserved Reading location - IP/workstation name: [email or web address]
[2019-01-10] MEDS: MONTELUKAST SODIUM 10 MG TABLET PO SCH (17:26)
[2019-01-10] MEDS: PIPERACILLIN SODIUM/TAZOBACTAM 4.5 GM in NORMAL SALINE 100 ML IV SCH (17:36)
--- NOTE | 2019-01-10 18:45 | Progress Note ---
Provider Note Provider Note: ID Telephone Consultation - Brief Note Asked to review patient's chart. Pt not seen or examined. Mr. Roberson has a PMH including morbid obesity, asthma, spinal stenosis, OA s/p R knee arthroplasty, and degenerative joint disease of the 1st MTP joint of the R foot s/p bunionectomy and double-stem Saleh implant insertion on 12/21/18. He was admitted overnight on 01/09. 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 Grissom instructed him to present to the hospital for antibiotic treatment of an infected foot wound. Per H&P, pt admitted to having an ulcer on the R 1st toe for 5 months. Pt reported the wound may be getting worse recently and is associated with constant aching pain. A culture obtained by his ticket sales supervisor grew Pseudomonas aeruginosa that has been reported as having intermediate susceptibility to quinolones and Enterococcus faecalis. ESR is 21. WBc count is normal. Pt has no fever. Plain films show no evidence of osteomyelitis. Impression/Recommendations - The patient was ordered vancomycin and meropenem. Based on the susceptibility report for the culture obtained on 01/02, Zosyn would address both organisms. Suggest discontinuing meropenem and vancomycin and switching to Zosyn instead. - If IV access is not a limiting factor, consider giving a continuous infusion of 18 grams of Zosyn over 24h (pharmacy would need to enter this order). Pt is morbidly obese and also has a less susceptible organism. Prolonged infusions of Zosyn increase the likelihood of achieving therapeutic concentrations. Clayton Cheney MD [facility] Infectious Diseases pager [phone]
--- NOTE | 2019-01-10 21:09 | PDOC PROGRESS REPORT ---
Subjective Progress Note for:: 01/10/19 Subjective:: Patient seen by the bedside, he was admitted yesterday for the management of infected wound of the right foot after he underwent podiatric intervention/procedure. He was initially admitted under hospitalist, was transferred to my service this morning. Presently on IV antibiotic Zosyn. The medical record was reviewed Reason For Visit: PSEUDOMONAS WOUND INFECTION OF THE FOOT Physical Exam Vital Signs: Temp Pulse Resp BP Pulse Ox 98.1 F 87 14 148/89 H 97 01/10/19 08:03 01/10/19 12:12 01/10/19 12:12 01/10/19 08:03 01/10/19 12:12 Intake & Output 01/09/19 01/10/19 01/11/19 06:59 06:59 06:59 Intake Total 300 1660 Output Total 200 1000 Balance 100 660 Weight 174.9 kg General appearance: PRESENT: no acute distress Eye exam: PRESENT: PERRLA Respiratory exam: PRESENT: clear to auscultation janet Cardiovascular exam: PRESENT: +S1, +S2 GI/Abdominal exam: PRESENT: soft Neurological exam: PRESENT: alert Results Laboratory Results: 01/10/19 06:01 01/10/19 06:01 01/10/19 01/10/19 01/10/19 00:30 00:30 06:01 WBC 6.3 5.4 RBC 4.35 4.06 L Hgb 13.6 12.8 L Hct 40.8 37.7 L MCV 94 93 MCH 31.4 31.5 MCHC 33.4 33.9 RDW 13.7 13.5 Plt Count 317 272 Seg Neutrophils % 56.4 Lymphocytes % 31.8 Monocytes % 7.7 Eosinophils % 3.0 Basophils % 1.1 Absolute Neutrophils 3.5 Absolute Lymphocytes 2.0 Absolute Monocytes 0.5 Absolute Eosinophils 0.2 Absolute Basophils 0.1 Sodium 136.3 L Potassium 4.7 Chloride 102 Carbon Dioxide 22 Anion Gap 12 BUN 16 Creatinine 1.07 Est GFR ( Amer) > 60 Est GFR (Non-Af Amer) > 60 Glucose 88 Calcium 9.8 Magnesium Total Bilirubin 0.4 AST 55 ALT 41 Alkaline Phosphatase 96 C-Reactive Protein Total Protein 7.9 Albumin 4.6 Triglycerides Cholesterol LDL Cholesterol Direct VLDL Cholesterol HDL Cholesterol TSH Free T4 Free T3 pg/mL Urine Color Urine Appearance Urine pH Ur Specific [place] Urine Protein Urine Glucose (UA) Urine Ketones Urine Blood Urine Nitrite Ur Leukocyte Esterase Urine WBC (Auto) Urine RBC (Auto) 01/10/19 01/10/19 01/10/19 06:01 06:01 06:01 WBC RBC Hgb Hct MCV MCH MCHC RDW Plt Count Seg Neutrophils % Lymphocytes % Monocytes % Eosinophils % Basophils % Absolute Neutrophils Absolute Lymphocytes Absolute Monocytes Absolute Eosinophils Absolute Basophils Sodium 135.4 L Potassium 4.5 Chloride 103 Carbon Dioxide 24 Anion Gap 8 BUN 16 Creatinine 1.05 Est GFR ( Amer) > 60 Est GFR (Non-Af Amer) > 60 Glucose 85 Calcium 9.2 Magnesium 1.9 Total Bilirubin AST ALT Alkaline Phosphatase C-Reactive Protein 8.6 Total Protein Albumin Triglycerides 121 Cholesterol 182.58 LDL Cholesterol Direct 122 H VLDL Cholesterol 24.0 HDL Cholesterol 48 TSH 6.20 H Free T4 0.74 L Free T3 pg/mL 3.97 Urine Color Urine Appearance Urine pH Ur Specific [place] Urine Protein Urine Glucose (UA) Urine Ketones Urine Blood Urine Nitrite Ur Leukocyte Esterase Urine WBC (Auto) Urine RBC (Auto) 01/10/19 06:21 WBC RBC Hgb Hct MCV MCH MCHC RDW Plt Count Seg Neutrophils % Lymphocytes % Monocytes % Eosinophils % Basophils % Absolute Neutrophils Absolute Lymphocytes Absolute Monocytes Absolute Eosinophils Absolute Basophils Sodium Potassium Chloride Carbon Dioxide Anion Gap BUN Creatinine Est GFR ( Amer) Est GFR (Non-Af Amer) Glucose Calcium Magnesium Total Bilirubin AST ALT Alkaline Phosphatase C-Reactive Protein Total Protein Albumin Triglycerides Cholesterol LDL Cholesterol Direct VLDL Cholesterol HDL Cholesterol TSH Free T4 Free T3 pg/mL Urine Color YELLOW Urine Appearance SLIGHTLY-CLOUDY Urine pH 5.0 Ur Specific [place] 1.021 Urine Protein NEGATIVE Urine Glucose (UA) NEGATIVE Urine Ketones NEGATIVE Urine Blood NEGATIVE Urine Nitrite NEGATIVE Ur Leukocyte Esterase NEGATIVE Urine WBC (Auto) 1 Urine RBC (Auto) 0 Impressions: Foot X-Ray 01/10/19 00:00 IMPRESSION: No evidence of osteomyelitis. Assessment & Plan - Diagnosis (1) Foot infection Is this a current diagnosis for this admission?: Yes Plan: Continue IV antibiotic (2) Arthritis of right knee Is this a current diagnosis for this admission?: Yes (3) PVD (peripheral vascular disease) Is this a current diagnosis for this admission?: Yes
[2019-01-11] MEDS: PIPERACILLIN SODIUM/TAZOBACTAM 4.5 GM in NORMAL SALINE 100 ML IV SCH ×4 (00:17→18:01)
[2019-01-11 05:10] LABS: HEMATOCRIT 39.8 % (37.9-51.0); HEMOGLOBIN 13.4 g/dL (13.5-17.0); MEAN CORPUSCULAR HEMOGLOBIN 31.5 pg (27.0-33.4); MEAN CORPUSCULAR HGB CONC 33.7 g/dL (32.0-36.0); MEAN CORPUSCULAR VOLUME 93 fl (80-97); PLATELET COUNT 255 10^3/uL (150-450); RED BLOOD COUNT 4.27 10^6/uL (4.35-5.55); RED CELL DISTRIBUTION WIDTH 13.7 % (11.5-14.0); WHITE BLOOD COUNT 4.8 10^3/uL (4.0-10.5)
[2019-01-11 05:34] LABS: ANION GAP 9 (5-19); BLOOD UREA NITROGEN 15 mg/dL (7-20); CALCIUM 9.6 mg/dL (8.4-10.2); CARBON DIOXIDE 26 mmol/L (22-30); CHLORIDE 102 mmol/L (98-107); GLUCOSE 105 mg/dL (75-110); POTASSIUM 4.2 mmol/L (3.6-5.0); SODIUM 137.1 mmol/L (137-145)
[2019-01-11] MEDS: HEPARIN SOD (PORCINE) 5,000 UNIT/ML 1 ML SYRINGE SUBCUT SCH ×3 (06:11→21:55)
[2019-01-11] MEDS: MORPHINE SULFATE 10 MG/ML INJ IV PRN ×3 (07:54→22:11)
[2019-01-11] MEDS: DOCUSATE SODIUM 100 MG CAPSULE PO SCH ×2 (09:25→17:59)
[2019-01-11] MEDS: FLUTICASONE/VILANTEROL 200-25 MCG/DOSE IH SCH (09:28)
[2019-01-11] MEDS: FAMOTIDINE INJ/PF 20 MG/2 ML SDV IV SCH ×2 (09:31→22:11)
--- NOTE | 2019-01-11 11:17 | PDOC CONSULTATION ---
Consultation Consult Date: 01/11/19 Attending physician:: POLLO BESS Provider Consulted: EDE WOODARD Consult reason:: Postoperative infection right foot. History of Present Illness Admission Date/PCP: 01/09/19 22:42 POLLO BESS MD Patient complains of: Open wound on the right foot. History of Present Illness: SANDEEP GONZALEZ is a 63 year old male who underwent implant arthroplasty of the first toe of the right foot on 12/21/2018. The first postop visit on 12/26/2018 was uneventful with no signs or symptoms of infection. Subsequent postoperative visit on 01/02/2019 revealed completely dehisced surgical wound, with serous greenish drainage, and maceration of the skin margins. At that time all sutures were removed, the wound was debrided, flushed with saline, tissue sample was obtained for bacterial culture, the wound was then cleansed with acetic acid solution sterile dressing consisting of Acticoat Flex 3 was inserted into the wound and local wound care was commenced. He was empirically started on oral antibiotics to consist of Bactrim DS 1 twice daily and Levaquin 750 mg 1 daily. Bacterial culture was available 3 days later which revealed pseudomonas aeruginosa and Enterococcus faecalis. Pseudomonas sensitivity to fluoroquinolones was only intermediate. Process was started to try and have patient receive home antibiotic infusion therapy, however due to cost constraints the patient was unable to afford the cost share. Was decided to have patient admitted [place] to receive intravenous antibiotic therapy, wound debridement and/or further surgery. Past Medical History Cardiac Medical History: Reports: Peripheral Vascular Disease Denies: Atrial Fibrillation, Congestive Heart Failure, Coronary Artery Disease, DVT, Myocardial Infarction, Hyperlipidema, Hypertension, Pulmonary Embolism, Heart Murmur Pulmonary Medical History: Reports: Asthma - MEDICATED Denies: Bronchitis, Chronic Obstructive Pulmonary Disease (COPD), Pneumonia, Respiratory Failure, Sleep Apnea, Tuberculosis EENT Medical History: Denies: Cataracts, Ears - Hearing aids Neurological Medical History: Denies: Hemorrhagic CVA, Ischemic CVA, Multiple Sclerosis, Seizures Endocrine Medical History: Reports: Obesity Denies: Diabetes Mellitus Type 1, Diabetes Mellitus Type 2, Hyperthyroidism, Hypothyroidism Renal/ Medical History: Denies: Chronic Kidney Disease, Nephrolithiasis Malignancy Medical History: Reports: None Denies: Lung Cancer GI Medical History: Reports: Gastroesophageal Reflux Disease Denies: Cirrhosis, Crohn's Disease, Diverticulitis, Hepatitis, Hiatal Hernia, Ulcerative Colitis Musculoskeltal Medical History: Reports: Arthritis - Osteoarthritis affecting multiple bilateral joints, Other - Chronic back pain secondary to spinal stenosis Denies: Fibromyalgia, Gout Skin Medical History: Denies: Eczema, Psoriasis Psychiatric Medical History: Denies: Alcohol Dependency, Depression, Substance Abuse, Tobacco Dependency Traumatic Medical History: Reports: None, Other - Left ankle fracture Hematology: Denies: Anemia, Sickle Cell Disease, Bleeding Tendencies Infectious Medical History: Reports: None Past Surgical History Past Surgical History: Reports: Orthopedic Surgery - B bilateral shoulders, R ankle, R arm, Other - Foot surgery 12/21/2018. 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 denies: CAD, DM Parental Family History Reviewed: Yes Children Family History Reviewed: Yes Sibling(s) Family History Reviewed.: Yes Medication/Allergy Home Medications: Fluticasone/Salmeterol [Advair 250-50 Diskus 14 Dose/Diskus] 1 puff IH Q12 12/01/17 Montelukast Sodium [Singulair 10 mg Tablet] 10 mg PO QPM 12/01/17 Oxycodone HCl/Acetaminophen [Percocet 10-325 Mg Tablet] 1 each PO Q6HP PRN MDD FILLED 01/02 FOR 8 DAY SUPPLY 12/21/18 Gabapentin [Neurontin 300 mg Capsule] 600 mg PO Q8 01/10/19 Levofloxacin [Levaquin 750 mg Tablet] 750 mg PO DAILY MDD YES, DAILY 01/10/19 Sulfamethoxazole/Trimethoprim [Septra-Ds 800-160 mg Tablet] 1 tab PO BID 01/10/19 Allergies/Adverse Reactions: No Known Allergies Allergy (Verified 04/27/18 18:43) Physical Exam Vital Signs: Temp Pulse Resp BP Pulse Ox 97.6 F 68 18 143/90 H 97 01/11/19 08:09 01/11/19 08:09 01/11/19 08:09 01/11/19 08:09 01/11/19 08:09 Intake & Output 01/10/19 01/11/19 01/12/19 06:59 06:59 06:59 Intake Total 300 3318 100 Output Total 200 1600 Balance 100 1718 100 Weight 385 lb 9.416 oz 202 lb 13.204 oz Pulses: PRESENT: +2 pedal pulses bilateral Vascular exam: PRESENT: normal capillary refill Skin exam: PRESENT: other - Patient has a surgical wound dehiscence on the dorsal aspect first metatarsal phalangeal joint of the right foot. Wound measures 6 cm x 3 cm x 1 cm in depth. Patient Saleh double stem implant is visible in the wound. There is slight maceration of the skin margins, minimal cellulitis and moderate edema. Results Laboratory Results: 01/11/19 04:15 01/11/19 04:15 01/11/19 01/11/19 04:15 04:15 WBC 4.8 RBC 4.27 L Hgb 13.4 L Hct 39.8 MCV 93 MCH 31.5 MCHC 33.7 RDW 13.7 Plt Count 255 Sodium 137.1 Potassium 4.2 Chloride 102 Carbon Dioxide 26 Anion Gap 9 BUN 15 Creatinine 1.25 Est GFR ( Amer) > 60 Est GFR (Non-Af Amer) 59 L Glucose 105 Calcium 9.6 Magnesium 2.0 Impressions: Foot X-Ray 01/10/19 00:00 IMPRESSION: No evidence of osteomyelitis. Assessment & Plan - Diagnosis (1) Foot infection Is this a current diagnosis for this admission?: Yes - Plan Summary Plan Summary: Patient been scheduled for surgical debridement of the wound on the right foot, with removal of implant. We will also insert antibiotic impregnated beads. Surgery is scheduled for later in the p.m. on 01/11/2019.
[2019-01-11] MEDS ORDERED: TOBRAMYCIN SULFATE INJ 1.2 GM PWDR VIAL MC PRN (14:10)
--- NOTE | 2019-01-11 15:14 | PDOC PROGRESS REPORT ---
Subjective Progress Note for:: 01/11/19 Subjective:: Patient was seen by the diffuser operator is scheduled for surgery today Reason For Visit: PSEUDOMONAS WOUND INFECTION OF THE FOOT Physical Exam Vital Signs: Temp Pulse Resp BP Pulse Ox 97.6 F 68 18 143/90 H 97 01/11/19 08:09 01/11/19 08:09 01/11/19 08:09 01/11/19 08:09 01/11/19 08:09 Intake & Output 01/10/19 01/11/19 01/12/19 06:59 06:59 06:59 Intake Total 300 3318 200 Output Total 200 1600 Balance 100 1718 200 Weight 174.9 kg 92 kg General appearance: PRESENT: no acute distress Eye exam: PRESENT: PERRLA Respiratory exam: PRESENT: clear to auscultation janet Cardiovascular exam: PRESENT: +S1, +S2 GI/Abdominal exam: PRESENT: soft Results Laboratory Results: 01/11/19 04:15 01/11/19 04:15 01/11/19 01/11/19 04:15 04:15 WBC 4.8 RBC 4.27 L Hgb 13.4 L Hct 39.8 MCV 93 MCH 31.5 MCHC 33.7 RDW 13.7 Plt Count 255 Sodium 137.1 Potassium 4.2 Chloride 102 Carbon Dioxide 26 Anion Gap 9 BUN 15 Creatinine 1.25 Est GFR ( Amer) > 60 Est GFR (Non-Af Amer) 59 L Glucose 105 Calcium 9.6 Magnesium 2.0 Impressions: Foot X-Ray 01/10/19 00:00 IMPRESSION: No evidence of osteomyelitis. Assessment & Plan - Diagnosis (1) Foot infection Is this a current diagnosis for this admission?: Yes Plan: Continue IV antibiotic (2) Arthritis of right knee Is this a current diagnosis for this admission?: Yes (3) PVD (peripheral vascular disease) Is this a current diagnosis for this admission?: Yes
[2019-01-11] MEDS ORDERED: FENTANYL CITRATE INJ/PF 100 MCG/2 ML AMPUL ONE (16:53)
[2019-01-11] MEDS ORDERED: MIDAZOLAM 2 MG/2 ML INJ ONE (16:53)
[2019-01-11] MEDS ORDERED: PROPOFOL INJ 200 MG/20 ML VIAL IV ONE (16:53)
[2019-01-11] MEDS ORDERED: BUPIVACAINE HCL 0.25 % INJ/PF (2.5 MG/1 ML) 30 ML VIAL ONE (17:21)
[2019-01-11] MEDS ORDERED: LIDOCAINE 0.5% INJ-PF (5 MG/ML) 50 ML SDV ONE (17:21)
[2019-01-11] MEDS: MONTELUKAST SODIUM 10 MG TABLET PO SCH (18:00)
[2019-01-11] MEDS ORDERED: PROMETHAZINE HCL INJ 25 MG/1 ML VIAL IV PRN ×2 (18:09)
[2019-01-11] MEDS ORDERED: MORPHINE SULFATE 10 MG/ML INJ IV PRN (18:09)
[2019-01-11] MEDS ORDERED: MEPERIDINE HCL/PF INJ 25 MG/1 ML DISP.SYRIN IV PRN (18:09)
[2019-01-11] MEDS ORDERED: FENTANYL CITRATE INJ/PF 100 MCG/2 ML AMPUL IV PRN ×3 (18:09)
[2019-01-11] MEDS ORDERED: DIPHENHYDRAMINE HCL 50 MG/ML VIAL IV PRN (18:09)
--- NOTE | 2019-01-11 19:06 | RADIOLOGY REPORT (SQ) ---
EXAM DESCRIPTION: NO CHG FLUORO; FOOT RIGHT 2 VIEWS COMPLETED DATE/TIME: 01/11/2019 6:53 pm REASON FOR STUDY: HARDWARE REMOVAL COMPARISON: None. FLUOROSCOPY TIME: 3 seconds 3 Images saved to PACS LIMITATIONS: None. PROCEDURE: Hardware removal. FINDINGS: Images from fluoro document removal of the arthroplasty device at the 1st metatarsal-phala ngeal joint. IMPRESSION: Hardware removal. Refer to operative note for further information. COMMENT: PQRS 6045F: Fluoroscopy time of the procedure is documented in the report. TECHNICAL DOCUMENTATION: JOB ID: [id number] [employer]- All Rights Reserved Reading location - IP/workstation name: [email or web address]
--- NOTE | 2019-01-11 19:06 | RADIOLOGY REPORT (SQ) ---
EXAM DESCRIPTION: NO CHG FLUORO; FOOT RIGHT 2 VIEWS COMPLETED DATE/TIME: 01/11/2019 6:53 pm REASON FOR STUDY: HARDWARE REMOVAL COMPARISON: None. FLUOROSCOPY TIME: 3 seconds 3 Images saved to PACS LIMITATIONS: None. PROCEDURE: Hardware removal. FINDINGS: Images from fluoro document removal of the arthroplasty device at the 1st metatarsal-phala ngeal joint. IMPRESSION: Hardware removal. Refer to operative note for further information. COMMENT: PQRS 6045F: Fluoroscopy time of the procedure is documented in the report. TECHNICAL DOCUMENTATION: JOB ID: [id number] [employer]- All Rights Reserved Reading location - IP/workstation name: [email or web address]
--- NOTE | 2019-01-11 19:22 | Operative Report ---
Operative Report DATE OF SURGERY: 01/11/19 PREOPERATIVE DIAGNOSIS: Postoperative infection right foot. POSTOPERATIVE DIAGNOSIS: Same OPERATION: Removal of double stem Saleh implant, debridement of wound, insertion of OsteoSet tobramycin-impregnated beads, right foot. SURGEON: EDE WOODARD ANESTHESIA: LMAC TISSUE REMOVED OR ALTERED: Bone removed from the first metatarsal and base of the proximal phalanx first toe right foot for microbiological testing and for pathology. COMPLICATIONS: None ESTIMATED BLOOD LOSS: Less than 25 mL's INTRAOPERATIVE FINDINGS: Open wound on the dorsum of the right first metatarsal phalangeal joint with exposed Saleh double stem implant. PROCEDURE: On 01/11/2019 patient was taken to the OR where following induction of venous sedation and regional local anesthesia, the patient's right foot and leg were prepped and draped in usual sterile manner. After surgical timeout following procedure informed: Attention was directed to the open wound on the dorsum of the first metatarsophalangeal joint where the proximal most portion of the wound was sharply incised with a 15 blade, approximately 3 cm in length, extending proximally over the first metatarsal shaft. The wound was opened with blunt dissection the Saleh implant was identified and removed from the wound in toto. All necrotic tissue was debrided with sharp dissection. Using power sagittal saw the base the proximal phalanx was osteotomized removing an approximately 3 mm wedge of bone. The first metatarsal was likewise osteotomized dorsal plantar removing approximately 3 mm wedge of bone. Bone specimens were sent to pathology and microbiology. Further debridement was carried out until all remaining necrotic tissue was removed to good bleeding healthy tissue. At that time OsteoSet resorbable beads were then mixed with tobramycin. The beads were allowed to harden per instructions, then inserted in the wound. The wound was then closed partially with a combination of simple suture with 2-0 nylon, vertical mattress suture of 2-0 nylon, and horizontal mattress suture of 2-0 nylon. Sterile dressing consisting of Xeroform gauze, 4 x 4's, Kerlix was applied to the wound. Patient tolerated surgery and anesthesia well was taken recovery further managed by the anesthesia department.
[2019-01-12] MEDS: MORPHINE SULFATE 10 MG/ML INJ IV PRN ×6 (00:46→21:47)
[2019-01-12] MEDS: PIPERACILLIN SODIUM/TAZOBACTAM 4.5 GM in NORMAL SALINE 100 ML IV SCH ×4 (00:47→17:52)
[2019-01-12 05:12] LABS: HEMATOCRIT 36.8 % (37.9-51.0); HEMOGLOBIN 12.5 g/dL (13.5-17.0); MEAN CORPUSCULAR HEMOGLOBIN 31.6 pg (27.0-33.4); MEAN CORPUSCULAR VOLUME 93 fl (80-97); PLATELET COUNT 230 10^3/uL (150-450); RED BLOOD COUNT 3.96 10^6/uL (4.35-5.55); WHITE BLOOD COUNT 9.2 10^3/uL (4.0-10.5)
[2019-01-12 05:23] LABS: ANION GAP 8 (5-19); BLOOD UREA NITROGEN 16 mg/dL (7-20); CALCIUM 9.5 mg/dL (8.4-10.2); CARBON DIOXIDE 27 mmol/L (22-30); CHLORIDE 100 mmol/L (98-107); GLUCOSE 89 mg/dL (75-110); POTASSIUM 4.9 mmol/L (3.6-5.0)
[2019-01-12] MEDS: HEPARIN SOD (PORCINE) 5,000 UNIT/ML 1 ML SYRINGE SUBCUT SCH ×3 (06:28→21:48)
[2019-01-12] MEDS: FLUTICASONE/VILANTEROL 200-25 MCG/DOSE IH SCH (10:44)
[2019-01-12] MEDS: FAMOTIDINE INJ/PF 20 MG/2 ML SDV IV SCH ×2 (10:44→21:48)
[2019-01-12] MEDS: DOCUSATE SODIUM 100 MG CAPSULE PO SCH ×2 (10:44→17:52)
[2019-01-12] MEDS: MONTELUKAST SODIUM 10 MG TABLET PO SCH (17:52)
--- NOTE | 2019-01-12 18:56 | PDOC PROGRESS REPORT ---
Subjective Progress Note for:: 01/12/19 Subjective:: Seen by the bedside, he was seen today by the truck cleaner underwent surgical debridement Reason For Visit: PSEUDOMONAS WOUND INFECTION OF THE FOOT Physical Exam Vital Signs: Temp Pulse Resp BP Pulse Ox 98.1 F 75 18 113/83 96 01/12/19 12:15 01/12/19 15:00 01/12/19 12:15 01/12/19 12:15 01/12/19 12:15 Intake & Output 01/11/19 01/12/19 01/13/19 06:59 06:59 06:59 Intake Total 3318 1324 1325 Output Total 1600 1550 1550 Balance 1718 226 -225 Weight 92 kg 93.6 kg General appearance: PRESENT: no acute distress Eye exam: PRESENT: PERRLA Respiratory exam: PRESENT: clear to auscultation janet Cardiovascular exam: PRESENT: +S1, +S2 Results Laboratory Results: 01/12/19 04:18 01/12/19 04:18 01/12/19 01/12/19 04:18 04:18 WBC 9.2 RBC 3.96 L Hgb 12.5 L Hct 36.8 L MCV 93 MCH 31.6 MCHC 34.0 RDW 14.0 Plt Count 230 Sodium 135.0 L Potassium 4.9 Chloride 100 Carbon Dioxide 27 Anion Gap 8 BUN 16 Creatinine 1.05 Est GFR ( Amer) > 60 Est GFR (Non-Af Amer) > 60 Glucose 89 Calcium 9.5 Magnesium 1.9 01/10/19 10:22 Foot - Right Gram Stain - Final Impressions: Fluoroscopy 01/11/19 00:00 IMPRESSION: Hardware removal. Refer to operative note for further information. Foot X-Ray 01/11/19 00:00 IMPRESSION: Hardware removal. Refer to operative note for further information. Assessment & Plan - Diagnosis (1) Foot infection Is this a current diagnosis for this admission?: Yes Plan: Continue IV antibiotic (2) Arthritis of right knee Is this a current diagnosis for this admission?: Yes (3) PVD (peripheral vascular disease) Is this a current diagnosis for this admission?: Yes
--- NOTE | 2019-01-12 20:37 | PDOC PROGRESS REPORT ---
Subjective Progress Note for:: 01/12/19 Subjective:: Patient resting comfortably, minimal pain this afternoon but did have moderate pain last evening that was well controlled with pain medication.. Reason For Visit: Postop debridement of open wound with removal of implant and insertion of Oste oSet resorbable antibiotic beads. Physical Exam Vital Signs: Temp Pulse Resp BP Pulse Ox 98.1 F 75 18 113/83 96 01/12/19 12:15 01/12/19 15:00 01/12/19 12:15 01/12/19 12:15 01/12/19 12:15 Intake & Output 01/11/19 01/12/19 01/13/19 06:59 06:59 06:59 Intake Total 3318 1324 1325 Output Total 1600 1550 1550 Balance 1718 -226 -225 Weight 202 lb 13.204 oz 206 lb 5.643 oz General appearance: PRESENT: no acute distress Pulses: PRESENT: +2 pedal pulses bilateral Vascular exam: PRESENT: normal capillary refill Skin exam: PRESENT: other - Remove dressing from the right foot. Wound on the dorsum of the right foot is partially closed with nylon suture which appear to be intact. There is some maceration on the medial aspect of the incision. OsteoSet beads are visible the wound opening. There is no active bleeding, capillary refill is instantaneous. The wound appears as expected. A sterile dressing consisting of Xeroform gauze, 4 x 4's, Kerlix and César wrap was applied to the right foot. Additional comments: Comments Results Laboratory Results: 01/12/19 04:18 01/12/19 04:18 01/12/19 01/12/19 04:18 04:18 WBC 9.2 RBC 3.96 L Hgb 12.5 L Hct 36.8 L MCV 93 MCH 31.6 MCHC 34.0 RDW 14.0 Plt Count 230 Sodium 135.0 L Potassium 4.9 Chloride 100 Carbon Dioxide 27 Anion Gap 8 BUN 16 Creatinine 1.05 Est GFR ( Amer) > 60 Est GFR (Non-Af Amer) > 60 Glucose 89 Calcium 9.5 Magnesium 1.9 01/10/19 10:22 Foot - Right Gram Stain - Final Impressions: Fluoroscopy 01/11/19 00:00 IMPRESSION: Hardware removal. Refer to operative note for further information. Foot X-Ray 01/11/19 00:00 IMPRESSION: Hardware removal. Refer to operative note for further information. Assessment & Plan - Diagnosis (1) Foot infection Is this a current diagnosis for this admission?: Yes - Plan Summary Plan Summary: Wound VAC has been ordered and will be placed on Wednesday. Talked with Anusha in discharge planning who can set the patient up for outpatient antibiotic home infusion therapy. Continue IV antibiotics, limit weightbearing on the right foot. I will follow patient until discharge. Patient will also be set up to be followed at the wound center.
[2019-01-13] MEDS: PIPERACILLIN SODIUM/TAZOBACTAM 4.5 GM in NORMAL SALINE 100 ML IV SCH ×4 (00:46→17:41)
[2019-01-13] MEDS: MORPHINE SULFATE 10 MG/ML INJ IV PRN ×6 (01:23→21:12)
[2019-01-13] MEDS: HEPARIN SOD (PORCINE) 5,000 UNIT/ML 1 ML SYRINGE SUBCUT SCH ×3 (06:52→21:13)
[2019-01-13] MEDS: FLUTICASONE/VILANTEROL 200-25 MCG/DOSE IH SCH (10:49)
[2019-01-13] MEDS: FAMOTIDINE INJ/PF 20 MG/2 ML SDV IV SCH ×2 (10:49→21:13)
[2019-01-13] MEDS: DOCUSATE SODIUM 100 MG CAPSULE PO SCH ×2 (10:50→17:41)
--- NOTE | 2019-01-13 15:12 | PDOC PROGRESS REPORT ---
Subjective Progress Note for:: 01/13/19 Subjective:: Patient resting comfortably, minimal pain this afternoon or last evening, well controlled with pain medication.. Reason For Visit: PSEUDOMONAS WOUND INFECTION OF THE FOOT Physical Exam Vital Signs: Temp Pulse Resp BP Pulse Ox 98.3 F 73 16 148/86 H 93 01/13/19 06:59 01/13/19 06:59 01/13/19 06:59 01/13/19 06:59 01/13/19 06:59 Intake & Output 01/12/19 01/13/19 01/14/19 06:59 06:59 06:59 Intake Total 1324 1969 1050 Output Total 1550 2825 400 Balance -226 -856 650 Weight 206 lb 5.643 oz 203 lb 14.841 oz Skin exam: PRESENT: other - Remove surgical dressing, minimal drainage on bandage which is serosanguineous. Maceration is resolved, sutures are intact, there is some granulation tissue noted. Cellulitis is about resolved. Minimal pain with palpation in the periwound area and temperature is returning to normal. Wound is improving. Results Laboratory Results: 01/12/19 04:18 01/12/19 04:18 01/10/19 10:22 Foot - Right Gram Stain - Final 01/10/19 10:22 Foot - Right Wound Culture - Final NO GROWTH 3 DAYS Impressions: Fluoroscopy 01/11/19 00:00 IMPRESSION: Hardware removal. Refer to operative note for further information. Foot X-Ray 01/11/19 00:00 IMPRESSION: Hardware removal. Refer to operative note for further information. Assessment & Plan - Diagnosis (1) Foot infection Is this a current diagnosis for this admission?: Yes - Plan Summary Plan Summary: Wound VAC applied to the patient's wound on the right foot. This to be change every 3 days or as needed for leakage. Continue IV antibiotics, limited weightbearing on the right foot and plan for outpatient antibiotic therapy, referral to wound center and discharge in the near future. I will follow patient until discharge.
[2019-01-13] MEDS: MONTELUKAST SODIUM 10 MG TABLET PO SCH (17:41)
--- NOTE | 2019-01-13 20:38 | PDOC PROGRESS REPORT ---
Subjective Progress Note for:: 01/13/19 Subjective:: Patient was seen by the bedside he had a wound VAC placed on his right foot today the plan is for him to stay the weekend on antibiotic hopefully discharge home next week Wednesday or Wednesday to follow outpatient wound clinic Reason For Visit: PSEUDOMONAS WOUND INFECTION OF THE FOOT Physical Exam Vital Signs: Temp Pulse Resp BP Pulse Ox 98.2 F 80 12 128/80 H 92 01/13/19 16:00 01/13/19 16:00 01/13/19 16:00 01/13/19 16:00 01/13/19 16:00 Intake & Output 01/12/19 01/13/19 01/14/19 06:59 06:59 06:59 Intake Total 1324 1969 1390 Output Total 1550 2825 400 Balance -226 -856 990 Weight 93.6 kg 92.5 kg General appearance: PRESENT: no acute distress Eye exam: PRESENT: PERRLA Respiratory exam: PRESENT: clear to auscultation jante Cardiovascular exam: PRESENT: +S1, +S2 GI/Abdominal exam: PRESENT: soft Results Laboratory Results: 01/12/19 04:18 01/12/19 04:18 01/10/19 10:22 Foot - Right Gram Stain - Final 01/10/19 10:22 Foot - Right Wound Culture - Final NO GROWTH 3 DAYS Impressions: Fluoroscopy 01/11/19 00:00 IMPRESSION: Hardware removal. Refer to operative note for further information. Foot X-Ray 01/11/19 00:00 IMPRESSION: Hardware removal. Refer to operative note for further information. Assessment & Plan - Diagnosis (1) Foot infection Is this a current diagnosis for this admission?: Yes Plan: Continue present line of management (2) Arthritis of right knee Is this a current diagnosis for this admission?: Yes (3) PVD (peripheral vascular disease) Is this a current diagnosis for this admission?: Yes
[2019-01-14] MEDS: PIPERACILLIN SODIUM/TAZOBACTAM 4.5 GM in NORMAL SALINE 100 ML IV SCH ×5 (00:39→23:24)
[2019-01-14] MEDS: MORPHINE SULFATE 10 MG/ML INJ IV PRN ×5 (01:22→23:25)
[2019-01-14] MEDS: HEPARIN SOD (PORCINE) 5,000 UNIT/ML 1 ML SYRINGE SUBCUT SCH ×3 (06:46→21:46)
[2019-01-14] MEDS: FAMOTIDINE INJ/PF 20 MG/2 ML SDV IV SCH ×2 (10:12→21:46)
[2019-01-14] MEDS: FLUTICASONE/VILANTEROL 200-25 MCG/DOSE IH SCH (10:12)
[2019-01-14] MEDS: DOCUSATE SODIUM 100 MG CAPSULE PO SCH ×2 (10:13→17:55)
--- NOTE | 2019-01-14 10:55 | PDOC PROGRESS REPORT ---
Subjective Progress Note for:: 01/14/19 Subjective:: Patient is currently doing well Denied any chest pain to than any shortness of the breath Patient is currently seen by the foot doctor status post foot surgery and plan for the wound care Reason For Visit: PSEUDOMONAS WOUND INFECTION OF THE FOOT Physical Exam Vital Signs: Temp Pulse Resp BP Pulse Ox 98.2 F 80 12 128/80 H 92 01/13/19 16:00 01/13/19 16:00 01/13/19 16:00 01/13/19 16:00 01/13/19 16:00 Intake & Output 01/13/19 01/14/19 01/15/19 06:59 06:59 06:59 Intake Total 1969 2862 100 Output Total 2820 2065 Balance -856 797 100 Weight 92.5 kg 95.8 kg General appearance: PRESENT: no acute distress, well-developed, well-nourished Head exam: PRESENT: atraumatic, normocephalic Eye exam: PRESENT: conjunctiva pink, EOMI, PERRLA. ABSENT: scleral icterus Ear exam: PRESENT: normal external ear exam Mouth exam: PRESENT: moist, tongue midline Neck exam: PRESENT: full ROM. ABSENT: carotid bruit, JVD, lymphadenopathy, thyromegaly Respiratory exam: PRESENT: clear to auscultation janet Cardiovascular exam: PRESENT: RRR. ABSENT: diastolic murmur, rubs, systolic murmur Pulses: PRESENT: normal dorsalis pedis pul, +2 pedal pulses bilateral Vascular exam: PRESENT: normal capillary refill GI/Abdominal exam: PRESENT: normal bowel sounds, soft. ABSENT: distended, guarding, mass, organolmegaly, rebound, tenderness Rectal exam: PRESENT: deferred Additional comments: Right foot wound VAC is present Neurological exam: PRESENT: alert, awake, oriented to person, oriented to place, oriented to time, oriented to situation, CN II-XII grossly intact. ABSENT: motor sensory deficit Psychiatric exam: PRESENT: appropriate affect, normal mood. ABSENT: homicidal ideation, suicidal ideation Skin exam: PRESENT: dry, intact, warm. ABSENT: cyanosis, rash Results Laboratory Results: 01/12/19 04:18 01/12/19 04:18 Impressions: Fluoroscopy 01/11/19 00:00 IMPRESSION: Hardware removal. Refer to operative note for further information. Foot X-Ray 01/11/19 00:00 IMPRESSION: Hardware removal. Refer to operative note for further information. Assessment & Plan - Diagnosis (1) Arthritis of right knee Is this a current diagnosis for this admission?: Yes (2) Asthma dependent on inhaled steroids Is this a current diagnosis for this admission?: Yes (3) Foot infection Is this a current diagnosis for this admission?: Yes (4) PVD (peripheral vascular disease) Is this a current diagnosis for this admission?: Yes - Time Time Spent with patient: 15-24 minutes Medications reviewed and adjusted accordingly: Yes Anticipated discharge: Other Within: Other - Plan Summary Plan Summary: Continues to wound VAC Continues to current medications
[2019-01-14 15:26] LABS: ABSOLUTE EOSINOPHILS # (AUTO) 0.3 10^3/uL (0.0-0.6); ABSOLUTE LYMPHOCYTES (AUTO) 1.4 10^3/uL (0.5-4.7); ABSOLUTE MONOCYTES (AUTO) 0.9 10^3/uL (0.1-1.4); ABSOLUTE NEUT (AUTO) 5.1 10^3/uL (1.7-8.2); BASOPHILS % (AUTO) 0.5 % (0-2); EOSINOPHILS % (AUTO) 3.7 % (0-6); HEMATOCRIT 36.2 % (37.9-51.0); HEMOGLOBIN 12.5 g/dL (13.5-17.0); LYMPHOCYTES % (AUTO) 18.5 % (13-45); MEAN CORPUSCULAR HEMOGLOBIN 31.9 pg (27.0-33.4); MEAN CORPUSCULAR HGB CONC 34.4 g/dL (32.0-36.0); MEAN CORPUSCULAR VOLUME 93 fl (80-97); MONOCYTES % (AUTO) 11.6 % (3-13); PLATELET COUNT 221 10^3/uL (150-450); RED BLOOD COUNT 3.91 10^6/uL (4.35-5.55); RED CELL DISTRIBUTION WIDTH 13.6 % (11.5-14.0); SEGMENTED NEUTROPHILS % (AUTO) 65.7 % (42-78); TOTAL CELLS COUNTED % (AUTO) 100 %; WHITE BLOOD COUNT 7.8 10^3/uL (4.0-10.5)
[2019-01-14] MEDS: MONTELUKAST SODIUM 10 MG TABLET PO SCH (17:55)
[2019-01-15] MEDS: PIPERACILLIN SODIUM/TAZOBACTAM 4.5 GM in NORMAL SALINE 100 ML IV SCH ×4 (05:27→23:07)
[2019-01-15] MEDS: HEPARIN SOD (PORCINE) 5,000 UNIT/ML 1 ML SYRINGE SUBCUT SCH ×3 (05:32→22:01)
[2019-01-15] MEDS: MORPHINE SULFATE 10 MG/ML INJ IV PRN ×4 (05:34→19:52)
[2019-01-15] MEDS: FAMOTIDINE INJ/PF 20 MG/2 ML SDV IV SCH ×2 (09:15→22:01)
[2019-01-15] MEDS: DOCUSATE SODIUM 100 MG CAPSULE PO SCH ×2 (09:16→17:11)
[2019-01-15] MEDS: FLUTICASONE/VILANTEROL 200-25 MCG/DOSE IH SCH (09:16)
--- NOTE | 2019-01-15 10:40 | PDOC PROGRESS REPORT ---
Subjective Progress Note for:: 01/15/19 Subjective:: Patient is currently doing much better Denied any chest pain to than any shortness of the breath Pain in the wound site is all control currently on a wound VAC and follow-up with the foot doctor Reason For Visit: PSEUDOMONAS WOUND INFECTION OF THE FOOT Physical Exam Vital Signs: Temp Pulse Resp BP Pulse Ox 98.1 F 72 20 127/72 H 93 01/15/19 04:41 01/15/19 04:41 01/15/19 04:41 01/15/19 04:41 01/15/19 04:41 Intake & Output 01/14/19 01/15/19 01/16/19 06:59 06:59 06:59 Intake Total 2862 2550 100 Output Total 2065 3335 Balance 797 -785 100 Weight 95.8 kg 94.4 kg General appearance: PRESENT: no acute distress, well-developed, well-nourished Head exam: PRESENT: atraumatic, normocephalic Eye exam: PRESENT: conjunctiva pink, EOMI, PERRLA. ABSENT: scleral icterus Ear exam: PRESENT: normal external ear exam Mouth exam: PRESENT: moist, tongue midline Neck exam: PRESENT: full ROM. ABSENT: carotid bruit, JVD, lymphadenopathy, thyromegaly Respiratory exam: PRESENT: clear to auscultation janet Cardiovascular exam: PRESENT: RRR. ABSENT: diastolic murmur, rubs, systolic murmur Vascular exam: PRESENT: normal capillary refill GI/Abdominal exam: PRESENT: normal bowel sounds, soft. ABSENT: distended, guarding, mass, organolmegaly, rebound, tenderness Rectal exam: PRESENT: deferred Extremities exam: ABSENT: pedal edema Additional comments: Right side of the foot wound VAC is present Neurological exam: PRESENT: alert, awake, oriented to person, oriented to place, oriented to time, oriented to situation, CN II-XII grossly intact. ABSENT: motor sensory deficit Psychiatric exam: PRESENT: appropriate affect, normal mood. ABSENT: homicidal ideation, suicidal ideation Skin exam: PRESENT: dry, intact, warm. ABSENT: cyanosis, rash Results Laboratory Results: 01/14/19 15:00 01/12/19 04:18 01/14/19 15:00 WBC 7.8 RBC 3.91 L Hgb 12.5 L Hct 36.2 L MCV 93 MCH 31.9 MCHC 34.4 RDW 13.6 Plt Count 221 Seg Neutrophils % 65.7 Lymphocytes % 18.5 Monocytes % 11.6 Eosinophils % 3.7 Basophils % 0.5 Absolute Neutrophils 5.1 Absolute Lymphocytes 1.4 Absolute Monocytes 0.9 Absolute Eosinophils 0.3 Absolute Basophils 0.0 01/11/19 18:15 Toe - Right First Gram Stain - Final 01/10/19 00:55 Blood Blood Culture - Final NO GROWTH IN 5 DAYS 01/10/19 00:30 Blood Blood Culture - Final NO GROWTH IN 5 DAYS Impressions: Fluoroscopy 01/11/19 00:00 IMPRESSION: Hardware removal. Refer to operative note for further information. Foot X-Ray 01/11/19 00:00 IMPRESSION: Hardware removal. Refer to operative note for further information. Assessment & Plan - Diagnosis (1) Arthritis of right knee Is this a current diagnosis for this admission?: Yes (2) Asthma dependent on inhaled steroids Is this a current diagnosis for this admission?: Yes (3) Foot infection Is this a current diagnosis for this admission?: Yes Plan: Status post surgery currently on a wound VAC (4) PVD (peripheral vascular disease) Is this a current diagnosis for this admission?: Yes - Time Time Spent with patient: 15-24 minutes Medications reviewed and adjusted accordingly: Yes Anticipated discharge: Home Within: Other - Plan Summary Plan Summary: Continues to current medications Patient and family no other concern
[2019-01-15] MEDS: MONTELUKAST SODIUM 10 MG TABLET PO SCH (17:11)
[2019-01-16] MEDS: MORPHINE SULFATE 10 MG/ML INJ IV PRN ×3 (01:29→21:38)
[2019-01-16] MEDS: HEPARIN SOD (PORCINE) 5,000 UNIT/ML 1 ML SYRINGE SUBCUT SCH ×3 (05:11→21:39)
[2019-01-16] MEDS: PIPERACILLIN SODIUM/TAZOBACTAM 4.5 GM in NORMAL SALINE 100 ML IV SCH ×3 (05:11→17:55)
[2019-01-16] MEDS: DOCUSATE SODIUM 100 MG CAPSULE PO SCH ×3 (09:23→17:49)
[2019-01-16] MEDS: FLUTICASONE/VILANTEROL 200-25 MCG/DOSE IH SCH (09:40)
[2019-01-16] MEDS: FAMOTIDINE INJ/PF 20 MG/2 ML SDV IV SCH ×2 (09:41→21:38)
[2019-01-16] MEDS: MONTELUKAST SODIUM 10 MG TABLET PO SCH (17:55)
--- NOTE | 2019-01-16 20:44 | PDOC PROGRESS REPORT ---
Subjective Progress Note for:: 01/16/19 Subjective:: Patient was seen by the bedside, he continues to require antibiotic pain medication, presently has a wound VAC Reason For Visit: PSEUDOMONAS WOUND INFECTION OF THE FOOT Physical Exam Vital Signs: Temp Pulse Resp BP Pulse Ox 98.4 F 85 18 131/76 H 95 01/16/19 19:40 01/16/19 19:40 01/16/19 19:40 01/16/19 19:40 01/16/19 19:40 Intake & Output 01/15/19 01/16/19 01/17/19 06:59 06:59 06:59 Intake Total 2550 2055 900 Output Total 3335 3325 700 Balance -785 -1270 200 Weight 94.4 kg 94.2 kg General appearance: PRESENT: no acute distress Eye exam: PRESENT: PERRLA Respiratory exam: PRESENT: clear to auscultation janet Cardiovascular exam: PRESENT: +S1, +S2 Neurological exam: PRESENT: alert Results Laboratory Results: 01/14/19 15:00 01/12/19 04:18 Impressions: Fluoroscopy 01/11/19 00:00 IMPRESSION: Hardware removal. Refer to operative note for further information. Foot X-Ray 01/11/19 00:00 IMPRESSION: Hardware removal. Refer to operative note for further information. Assessment & Plan - Diagnosis (1) Foot infection Is this a current diagnosis for this admission?: Yes (2) Arthritis of right knee Is this a current diagnosis for this admission?: Yes (3) PVD (peripheral vascular disease) Is this a current diagnosis for this admission?: Yes
[2019-01-17] MEDS: PIPERACILLIN SODIUM/TAZOBACTAM 4.5 GM in NORMAL SALINE 100 ML IV SCH ×3 (00:16→12:24)
[2019-01-17] MEDS: HEPARIN SOD (PORCINE) 5,000 UNIT/ML 1 ML SYRINGE SUBCUT SCH ×2 (05:10→13:06)
[2019-01-17] MEDS: FLUTICASONE/VILANTEROL 200-25 MCG/DOSE IH SCH (09:14)
[2019-01-17] MEDS: FAMOTIDINE INJ/PF 20 MG/2 ML SDV IV SCH (09:14)
[2019-01-17] MEDS: DOCUSATE SODIUM 100 MG CAPSULE PO SCH ×2 (09:14→17:00)
--- NOTE | 2019-01-17 09:42 | PDOC PROGRESS REPORT ---
Subjective Progress Note for:: 01/16/19 Subjective:: Patient resting comfortably, minimal pain, well controlled with pain medic ation.. Reason For Visit: PSEUDOMONAS WOUND INFECTION OF THE FOOT Physical Exam Vital Signs: Temp Pulse Resp BP Pulse Ox 98.1 F 75 16 128/86 H 95 01/17/19 07:53 01/17/19 07:53 01/17/19 07:53 01/17/19 07:53 01/17/19 07:53 Intake & Output 01/16/19 01/17/19 01/18/19 06:59 06:59 06:59 Intake Total 2055 1400 Output Total 3325 700 Balance -1270 700 Weight 207 lb 10.807 oz 208 lb 15.971 oz Skin exam: PRESENT: other - Wound vac in place, right foot, negative pressure at 125 and holding. Results Laboratory Results: 01/14/19 15:00 01/12/19 04:18 Impressions: Normal post operative course, patient progressing well. Fluoroscopy 01/11/19 00:00 IMPRESSION: Hardware removal. Refer to operative note for further information. Foot X-Ray 01/11/19 00:00 IMPRESSION: Hardware removal. Refer to operative note for further information. Assessment & Plan - Diagnosis (1) Foot infection Is this a current diagnosis for this admission?: Yes - Plan Summary Plan Summary: Patient is Ok for discharge as concerns his foot surgery, when outpatient/home infusion antibiotic therapy is established. Patient has appointment for follow up at the [facility] on 01/19/19 at 13:00.
[2019-01-17 16:57] VITALS: BP 117/56
[2019-01-17] MEDS: MONTELUKAST SODIUM 10 MG TABLET PO SCH (17:00)
--- NOTE | 2019-01-17 19:37 | PDOC DISCHARGE SUMMARY ---
General - Admit/Disc Date/PCP Admission Date/Primary Care Provider: 01/09/19 22:42 POLLO BESS MD Discharge Date: 01/17/19 - Discharge Diagnosis (1) Foot infection Is this a current diagnosis for this admission?: Yes (2) Arthritis of right knee Is this a current diagnosis for this admission?: Yes (3) PVD (peripheral vascular disease) Is this a current diagnosis for this admission?: Yes - Additional Information Resuscitation Status: Full Code Discharge Diet: Cardiac Discharge Activity: Activity As Tolerated, Balance Activity w/Rest Home Medications: RX: Fluticasone/Salmeterol [Advair 250-50 Diskus 14 Dose/Diskus] 1 puff IH Q12 12/01/17 RX: Montelukast Sodium [Singulair 10 mg Tablet] 10 mg PO QPM 12/01/17 RX: Oxycodone HCl/Acetaminophen [Percocet 10-325 mg Tablet] 1 each PO Q6HP PRN MDD FILLED 01/02 FOR 8 DAY SUPPLY 12/21/18 RX: Gabapentin [Neurontin 300 mg Capsule] 600 mg PO Q8 01/10/19 RX: Levofloxacin [Levaquin 750 mg Tablet] 750 mg PO DAILY MDD YES, DAILY 01/10/19 RX: Sulfamethoxazole/Trimethoprim [Septra-Ds 800-160 mg Tablet] 1 tab PO BID 01/10/19 History of Present Illness History of Present Illness: SANDEEP GONZALEZ is a 63 year old male, He was initially admitted by the hospitalist as a direct admit from the curb worker office for the management of right foot infection, the history was that Pseudomonas was cultured from the wo und the curb worker referred him to the emergency room for evaluation Hospital Course Hospital Course: He was treated with IV antibiotic, he was seen by the curb worker he underwent operative procedure on 01/11/2019 for the removal of double stem Saleh impl ant, debridement of wound, insertion of osteoset tobramycin impregnated beads. He also had a wound VAC placement patient will follow with wound clinic. Patient management was achieved with IV morphine Physical Exam Vital Signs: Temp Pulse Resp BP Pulse Ox 97.6 F 88 16 117/56 L 96 01/17/19 16:55 01/17/19 16:55 01/17/19 16:55 01/17/19 16:55 01/17/19 16:55 Intake & Output 01/16/19 01/17/19 01/18/19 06:59 06:59 06:59 Intake Total 2055 1400 1588 Output Total 3325 700 975 Balance -1270 700 613 Weight 94.2 kg 94.8 kg General appearance: PRESENT: no acute distress Head exam: PRESENT: atraumatic, normocephalic Eye exam: PRESENT: PERRLA Ear exam: PRESENT: normal external ear exam Mouth exam: PRESENT: moist, tongue midline Neck exam: PRESENT: full ROM Respiratory exam: PRESENT: clear to auscultation janet Cardiovascular exam: PRESENT: +S1, +S2 Pulses: PRESENT: normal dorsalis pedis pul, +2 pedal pulses bilateral Vascular exam: PRESENT: normal capillary refill GI/Abdominal exam: PRESENT: soft Rectal exam: PRESENT: deferred Extremities exam: PRESENT: other - Dressing of the right foot Neurological exam: PRESENT: alert, CN II-XII grossly intact Psychiatric exam: PRESENT: appropriate affect, normal mood Skin exam: PRESENT: dry, intact, warm Results Laboratory Results: 01/14/19 15:00 01/12/19 04:18 Impressions: Fluoroscopy 01/11/19 00:00 IMPRESSION: Hardware removal. Refer to operative note for further information. Foot X-Ray 01/11/19 00:00 IMPRESSION: Hardware removal. Refer to operative note for further information. Qualifiers - * PATIENT BEING DISCHARGED WITH ANY OF THE FOLLOWING DIAGNOSIS: No VTE patient discharged on overlapping Therapy?: No Stroke Pt being discharged on Anti-thrombolytic therapy?: No Reason(s) for not prescribing Anti-thrombolytic therapy:: Not indicated Stroke Pt being discharged on Anti-coagulation therapy?: No Reason(s) for not prescribing Anti-coagulation therapy:: Not indicated Stroke Pt being discharged on Statins?: No Reason(s) for not prescribing Statins therapy:: Not indicated MO Pt being discharged on Aspirin therapy?: No Reason(s) for not prescribing Aspirin therapy:: Not indicated MO Pt being discharged on Statins?: No Reason(s) for not prescribing Statin therapy:: Not indicated MO Pt discharged ACEI/ARBS?: No Reason(s) for not prescribing ACEI/ARBS:: Not indicated Acute Heart Failure - Is this a Heart Failure Patient?: No 3. Anticoagulant therapy for permanect/persistent/paraoxysmal Afib or Aflutter: N/A
== END 2019-01-17 17:42 | disposition home health service (06) | DRG 857 ==
LOC: ER 18:20 → EH 22:42 → 3N 01-10 01:45
PROVIDERS: ADMIT Emergency Medicine; ATTEND Internal Medicine
PROC: 0QBQ0ZX Excision of Right Toe Phalanx, Open Approach, Diagnostic (ICD-10-PCS; 2019-01-11)
PROC: 3E0V329 Introduction of Other Anti-infective into Bones, Percutaneous Approach (ICD-10-PCS; 2019-01-11)
PROC: 0SPP04Z Removal of Internal Fixation Device from Right Toe Phalangeal Joint, Open Approach (ICD-10-PCS; principal; 2019-01-11 16:00)
DX: T81.49XA Infection following a procedure, other surgical site, initial encounter (principal); T81.31XA Disruption of external operation (surgical) wound, not elsewhere classified, initial encounter; I70.261 Atherosclerosis of native arteries of extremities with gangrene, right leg; J45.909 Unspecified asthma, uncomplicated; K21.9 Gastro-esophageal reflux disease without esophagitis; M48.00 Spinal stenosis, site unspecified; E66.01 Morbid (severe) obesity due to excess calories; B96.5 Pseudomonas (aeruginosa) (mallei) (pseudomallei) as the cause of diseases classified elsewhere; B95.2 Enterococcus as the cause of diseases classified elsewhere; M17.11 Unilateral primary osteoarthritis, right knee; Y83.8 Other surgical procedures as the cause of abnormal reaction of the patient, or of later complication, without mention of misadventure at the time of the procedure; L97.519 Non-pressure chronic ulcer of other part of right foot with unspecified severity
CPT/HCPCS: 01480; 36415; 80048; 80053; 80061; 80307; 81001; 83036; 83735; 84439; 84443; 84481; 85025; 85027; 85652; 86140; 87040; 87070; 87075; 87205; 88305; 88311; C1713; J1644; J2185; J2250; J2270; J2543; J2704; J3010; J3260; J3370; J3490; J7050; J7060; S0028

== ENCOUNTER → 2019-01-31 | Outpatient (CLI) | payer MEDICARE, MEDICAID ==
--- NOTE | 2019-01-31 10:45 | XCELERA REPORT ---
[address] [address] Lower Extremity Arterial Evaluation Name: SANDEEP GONZALEZ Age: 63 yrs Gender: Male : 1955 Patient Status: Outpatient Patient Location: Study Date: 01/31/2019 08:35 AM Procedure: A color flow and duplex scan of the lower extremity arteries was performed bilaterally with velocity and waveform anaylsis. Ankle brachial indicies performed. 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 Ankle Brachial index 1.17. Left Side Arterial Evaluation Normal velocity and triphasic waveforms noted from the Common Femoral artery to the infrageniculate vessels . Ankle Brachial index 1.17. Interpretation Summary No hemodynamically significant lesions in the bilateral lower extremities, on duplex imaging, at rest. RAMIRO's are normal, indicating no significant arterial compromise. Concordant with duplex. : EDE WOODARD > Jon Stewart
== END ==
LOC: SP 08:12
PROVIDERS: ATTEND Preventive Medicine Undersea and Hyperbaric Medicine
DX: L97.522 Non-pressure chronic ulcer of other part of left foot with fat layer exposed (principal)
CPT/HCPCS: 93922; 93925

== ENCOUNTER → 2019-03-28 | Outpatient (CLI) | payer MEDICARE, MEDICAID ==
--- NOTE | 2019-03-28 14:13 | RADIOLOGY REPORT (SQ) ---
EXAM DESCRIPTION: FOOT RIGHT COMPLETE COMPLETED DATE/TIME: 03/28/2019 1:59 pm REASON FOR STUDY: NON-PRS CHRONIC ULCER OTH PRT RIGHT FOOT W FAT LAYER EXPOSED L97.512 NON-PRS DEALER CARD ROOM SALVADOR ULCER OTH PRT RIGHT FOOT W FAT LAYER E11.621 TYPE 2 DIABETES MELLITUS WITH FOOT ULCER COMPARISON: 03/13/2019 NUMBER OF VIEWS: Three views. TECHNIQUE: AP, lateral and oblique radiographic images acquired of the right foot. LIMITATIONS: None. FINDINGS: MINERALIZATION: Normal. BONES: There are postsurgical changes with osteotomy defect involving the distal 1st metatarsal. Mirza ency in the proximal phalanx of the great toe is grossly unchanged. No conventional radiographic tequila dence of osteomyelitis. JOINTS: No effusions. SOFT TISSUES: There is a small amount of subcutaneous air suggested on the lateral projection. OTHER: No other significant finding. IMPRESSION: No conventional radiographic evidence of osteomyelitis. Postsurgical changes. TECHNICAL DOCUMENTATION: JOB ID: [id number] [employer]- All Rights Reserved Reading location - IP/workstation name: [email or web address]
[2019-03-28 14:30] LABS: ABSOLUTE EOSINOPHILS # (AUTO) 0.2 10^3/uL (0.0-0.6); ABSOLUTE LYMPHOCYTES (AUTO) 1.4 10^3/uL (0.5-4.7); ABSOLUTE MONOCYTES (AUTO) 0.6 10^3/uL (0.1-1.4); ABSOLUTE NEUT (AUTO) 2.1 10^3/uL (1.7-8.2); BASOPHILS % (AUTO) 0.5 % (0-2); EOSINOPHILS % (AUTO) 4.3 % (0-6); HEMATOCRIT 40.8 % (37.9-51.0); HEMOGLOBIN 13.8 g/dL (13.5-17.0); LYMPHOCYTES % (AUTO) 33.3 % (13-45); MEAN CORPUSCULAR HEMOGLOBIN 31.5 pg (27.0-33.4); MEAN CORPUSCULAR HGB CONC 33.8 g/dL (32.0-36.0); MEAN CORPUSCULAR VOLUME 93 fl (80-97); MONOCYTES % (AUTO) 12.9 % (3-13); PLATELET COUNT 237 10^3/uL (150-450); RED BLOOD COUNT 4.37 10^6/uL (4.35-5.55); RED CELL DISTRIBUTION WIDTH 14.2 % (11.5-14.0); TOTAL CELLS COUNTED % (AUTO) 100 %; WHITE BLOOD COUNT 4.3 10^3/uL (4.0-10.5)
[2019-03-28 14:46] LABS: ALBUMIN 4.5 g/dL (3.5-5.0); ALKALINE PHOSPHATASE 87 U/L (38-126); ANION GAP 14 (5-19); ASPARTATE AMINO TRANSFERASE 105 U/L (17-59); BILIRUBIN,DIRECT 0.4 mg/dL (0.0-0.4); BILIRUBIN,TOTAL 0.6 mg/dL (0.2-1.3); BLOOD UREA NITROGEN 18 mg/dL (7-20); C-REACTIVE PROTEIN 8.8 mg/L (<10.0); CALCIUM 9.4 mg/dL (8.4-10.2); CARBON DIOXIDE 23 mmol/L (22-30); CHLORIDE 100 mmol/L (98-107); GLUCOSE 91 mg/dL (75-110); POTASSIUM 4.7 mmol/L (3.6-5.0); TOTAL PROTEIN 7.6 g/dL (6.3-8.2)
[2019-03-28 15:15] LABS: ERYTHROCYTE SEDIMENTATION RATE 15 mm/hr (0-20)
== END ==
LOC: WC 13:35
PROVIDERS: ATTEND Preventive Medicine Undersea and Hyperbaric Medicine
DX: E11.621 Type 2 diabetes mellitus with foot ulcer (principal); L97.512 Non-pressure chronic ulcer of other part of right foot with fat layer exposed
CPT/HCPCS: 36415; 80053; 83036; 85025; 85652; 86140

== ENCOUNTER → 2019-09-21 | Outpatient (CLI) | payer MEDICARE, MEDICAID ==
--- NOTE | 2019-09-21 11:45 | RADIOLOGY REPORT (SQ) ---
EXAM DESCRIPTION: HIPS BILATERAL COMPLETED DATE/TIME: 09/21/2019 9:50 am REASON FOR STUDY: BILATERAL PRIMARY OSTEOARTHRITIS OF HIP M16.0 BILATERAL PRIMARY OSTEOARTHRITIS OF HIP COMPARISON: None. NUMBER OF VIEWS: Two views TECHNIQUE: AP pelvis and additional frog-leg view of both hips. LIMITATIONS: None. FINDINGS: MINERALIZATION: Normal. HIPS: There is minimal joint space narrowing. Tiny marginal osteophytes is seen on the femoral heads . No fracture or dislocation. PELVIS AND SACRUM: No acute fracture or dislocation. No worrisome bone lesions. PUBIS AND ISCHIUM: No acute fracture. LOWER LUMBAR SPINE: Mild degenerative disc changes and spondylosis. SOFT TISSUES: No findings. OTHER: No other significant finding. IMPRESSION: Mild degenerative joint changes in the hips. Mild lower lumbar degenerative changes. TECHNICAL DOCUMENTATION: JOB ID: [id number] 2010 [employer]- All Rights Reserved Reading location - IP/workstation name: [email or web address]
== END ==
LOC: RAD 09:33
PROVIDERS: ATTEND Internal Medicine
DX: M16.0 Bilateral primary osteoarthritis of hip (principal)
CPT/HCPCS: 73522

== ENCOUNTER → 2020-03-22 | Outpatient (CLI) | payer MEDICARE, MEDICAID ==
--- NOTE | 2020-03-22 12:38 | RADIOLOGY REPORT (SQ) ---
EXAM DESCRIPTION: HIPS BILATERAL IMAGES COMPLETED DATE/TIME: 03/22/2020 12:07 pm REASON FOR STUDY: POLYARTHRITIS M13.0 POLYARTHRITIS, UNSPECIFIED COMPARISON: 09/21/2019 NUMBER OF VIEWS: Two views TECHNIQUE: AP pelvis and additional frog-leg view of both hips. LIMITATIONS: None. FINDINGS: MINERALIZATION: Normal. HIPS: Minimal joint space narrowing. Small marginal osteophytes on the femoral heads. PELVIS AND SACRUM: No acute fracture or dislocation. No worrisome bone lesions. PUBIS AND ISCHIUM: No acute fracture. LOWER LUMBAR SPINE: Mild lower lumbar degenerative changes. SOFT TISSUES: No findings. OTHER: None IMPRESSION: Mild degenerative joint changes in the hips, left more than right. Mild lower lumbar de generative changes. TECHNICAL DOCUMENTATION: JOB ID: [id number] [employer]- All Rights Reserved Reading location - IP/workstation name: [email or web address]
--- NOTE | 2020-03-22 12:40 | RADIOLOGY REPORT (SQ) ---
EXAM DESCRIPTION: SHOULDER BILAT 2 OR MORE VIEWS IMAGES COMPLETED DATE/TIME: 03/22/2020 12:07 pm REASON FOR STUDY: POLYARTHRITIS M13.0 POLYARTHRITIS, UNSPECIFIED COMPARISON: None. NUMBER OF VIEWS: Three views. TECHNIQUE: Internal rotation, external rotation, and Y view images acquired of the right and left sh oulder. LIMITATIONS: None. FINDINGS: MINERALIZATION: Normal. BONES: Bilateral shoulder arthroplasties in good position. GLENOHUMERAL JOINT: See above. ACROMIOCLAVICULAR JOINT: No large osteophytes. SOFT TISSUES: No calcifications. VISUALIZED RIBS, SPINE, AND LUNG: No other significant finding. OTHER: No other significant finding. IMPRESSION: Bilateral shoulder arthroplasties. No acute finding. TECHNICAL DOCUMENTATION: JOB ID: [id number] [employer]- All Rights Reserved Reading location - IP/workstation name: [email or web address]
--- NOTE | 2020-03-22 12:45 | RADIOLOGY REPORT (SQ) ---
EXAM DESCRIPTION: KNEE BILAT AP UPRIGHT IMAGES COMPLETED DATE/TIME: 03/22/2020 12:07 pm REASON FOR STUDY: POLYARTHRITIS M13.0 POLYARTHRITIS, UNSPECIFIED COMPARISON: None. NUMBER OF VIEWS: One view. TECHNIQUE: AP standing bilateral knees. LIMITATIONS: None. FINDINGS: AP views of the knees show the joint spaces on the left to be slightly narrowed medially a nd maintained laterally. Bone infarcts are seen in the distal femur and proximal tibia. There is a total knee arthroplasty on the right. Bone infarcts are present on the right as well. . IMPRESSION: Mild joint space narrowing in the medial compartment of the left knee. 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 Right hip arthroplasty. Bone infarcts bilaterally. TECHNICAL DOCUMENTATION: JOB ID: [id number] 2010 [employer]- All Rights Reserved Reading location - IP/workstation name: [email or web address]
== END ==
LOC: OD 10:54
PROVIDERS: ATTEND Internal Medicine
DX: M13.0 Polyarthritis, unspecified (principal)
CPT/HCPCS: 73522; 73565

== ENCOUNTER 2020-06-22 14:02 | Emergency (ER) | payer MEDICARE, MEDICAID ==
[2020-06-22 14:24] VITALS: BP 137/66
--- NOTE | 2020-06-22 14:39 | ER Document Report ---
ED Medical Screen (RME) - General Chief Complaint: Shoulder Pain Stated Complaint: SHOULDER PAIN Time Seen by Provider: 06/22/20 14:38 Primary Care Provider: POLLO BESS MD [Primary Care Provider] - Follow up as needed Mode of Arrival: Wheelchair Information source: Patient TRAVEL OUTSIDE OF THE [place] IN LAST 30 DAYS: No - Related Data Allergies/Adverse Reactions: iodine Allergy (Severe, Verified 01/13/19 21:25) Past Medical History - Past Medical History Cardiac Medical History: Reports: Hx Peripheral Vascular Disease Denies: Hx Atrial Fibrillation, Hx Congestive Heart Failure, Hx Coronary Artery Disease, Hx DVT, Hx Heart Attack, Hx Hypercholesterolemia, Hx Hypertension, Hx Pulmonary Embolism, Hx Heart Murmur Pulmonary Medical History: Reports: Hx Asthma - MEDICATED Denies: Hx Bronchitis, Hx COPD, Hx Pneumonia, Hx Respiratory Failure, Hx Sleep Apnea, Hx Tuberculosis Neurological Medical History: Denies: Hx Cerebrovascular Accident, Hx Seizures Endocrine Medical History: Denies: Hx Diabetes Mellitus Type 1, Hx Diabetes Mellitus Type 2, Hx Hyperthyroidism, Hx Hypothyroidism Renal/ Medical History: Denies: Hx Peritoneal Dialysis Malignancy Medical History: Denies Hx Lung Cancer GI Medical History: Reports: Hx Gastroesophageal Reflux Disease. Denies: Hx Cirrhosis, Hx Crohn's Disease, Hx Diverticulitis, Hx Hepatitis, Hx Hiatal Hernia, Hx Irritable Bowel, Hx Liver Failure, Hx Pancreatitis, Hx Ulcer, Hx Ulcerative Colitis Musculoskeltal Medical History: Reports Hx Arthritis - Osteoarthritis affecting multiple bilateral joints, Denies Hx Fibromyalgia, Denies Hx Gout, Denies Hx Muscular Dystrophy, Reports Hx Musculoskeletal Trauma Skin Medical History: Denies Hx Eczema, Denies Hx Psoriasis Psychiatric Medical History: Denies: Hx Depression Traumatic Medical History: Reports: Hx Fractures - left ankle Infectious Medical History: Denies: Hx Hepatitis Past Surgical History: Reports: Hx Orthopedic Surgery - B bilateral shoulders, R ankle, R arm, Other - Foot surgery 12/21/2018.. Denies: Hx Appendectomy, Hx Bowel Surgery, Hx Cholecystectomy, Hx Colostomy, Hx Coronary Artery Bypass Graft, Hx Gastric Bypass Surgery, Hx Herniorrhaphy, Hx Open Heart Surgery, Hx Pacemaker, Hx Tonsillectomy - Immunizations Immunizations up to date: No Hx Diphtheria, Pertussis, Tetanus Vaccination: No Physical Exam - Vital signs Vitals: Temp Pulse Resp BP Pulse Ox 99.0 F 94 18 137/66 H 100 06/22/20 14:21 06/22/20 14:21 06/22/20 14:21 06/22/20 14:21 06/22/20 14:21 Course - Vital Signs Vital signs: Temp Pulse Resp BP Pulse Ox 99.0 F 94 18 137/66 H 100 06/22/20 14:21 06/22/20 14:21 06/22/20 14:21 06/22/20 14:21 06/22/20 14:21 Doctor's Discharge - Discharge Referrals: POLLO BESS MD [Primary Care Provider] - Follow up as needed
--- NOTE | 2020-06-22 14:43 | ER Document Report ---
ED Extremity Problem, Upper - General Chief Complaint: Shoulder Pain Stated Complaint: SHOULDER PAIN Time Seen by Provider: 06/22/20 14:38 Primary Care Provider: POLLO BESS MD [Primary Care Provider] - 06/24/20 Mode of Arrival: Wheelchair Information source: Patient Notes: 64-year-old male presented to ED for complaint of increased pain to the left shoulder. He states he normally takes gabapentin and Percocet tens for his chronic pain but he ran out of his medications because he did give a couple to his girl because her pain was stronger than her medications will cover. He does not another appointment till June 25. I have instructed him I would give him one of his Percocet 10 mg today but he will need to talk to Dr. Bess about refill on his Percocets and use Tylenol or Motrin until he can get in and see his doctor. He can still take his gabapentin as prescribed. We will get x-ray to find out why the pain is worse than normal besides the fact that he ran out of his Percocets. Constitutional: Negative for fever. HENT: Negative for sore throat. Eyes: Negative for visual changes. Cardiovascular: Negative for chest pain. Respiratory: Negative for shortness of breath. Gastrointestinal: Negative for abdominal pain, vomiting or diarrhea. Genitourinary: Negative for dysuria. Musculoskeletal: Increased pain in the left shoulder he states he has had decreased range of motion since Thanksgi night Skin: Negative for rash. Neurological: Negative for headaches, weakness or numbness. 10 point ROS negative except as marked above and in HPI. PHYSICAL EXAMINATION: GENERAL: Well-appearing, well-nourished and in no acute distress. HEAD: Atraumatic, normocephalic. EYES: Pupils equal round extraocular movements intact, conjunctiva are normal. ENT: Nares patent NECK: Normal range of motion LUNGS: No respiratory distress Musculoskeletal: Decreased range of motion to the shoulder. Tenderness to any movement to the left shoulder. NEUROLOGICAL: Normal speech, normal gait. PSYCH: Normal mood, normal affect. SKIN: Warm, Dry, normal turgor, no rashes or lesions noted. TRAVEL OUTSIDE OF THE [place] IN LAST 30 DAYS: No - HPI Patient complains to provider of: Pain, Left Onset: Other Recent injury: No - Thanks Ryder Quality of pain: Sharp, Throbbing Severity of pain: Severe Pain Level: 4 Associated symptoms: Other Exacerbated by: Movement, Exertion Relieved by: Rest, Positioning Similar symptoms previously: Yes Recently seen / treated by doctor: Yes - Related Data Allergies/Adverse Reactions: iodine Allergy (Severe, Verified 01/13/19 21:25) Past Medical History - General Information source: Patient - Social History Smoking Status: Former Smoker Frequency of alcohol use: Heavy - Couple beers a day Drug Abuse: None Lives with: Spouse/Significant other Family History: Malignancy, Other - Asthma. denies: CAD, DM Pulmonary Medical History: Reports: Hx Asthma - MEDICATED EENT Medical History: Reports: None Neurological Medical History: Reports: None Endocrine Medical History: Reports: None Renal/ Medical History: Reports: None Malignancy Medical History: Reports None GI Medical History: Reports: Hx Gastroesophageal Reflux Disease Musculoskeletal Medical History: Reports Hx Arthritis - Osteoarthritis affecting multiple bilateral joints, Reports Hx Musculoskeletal Trauma Skin Medical History: Reports None Traumatic Medical History: Reports: Hx Fractures - left ankle Infectious Medical History: Reports: None Past Surgical History: Reports: Hx Orthopedic Surgery - B bilateral shoulders, R ankle, R arm, Other - Foot surgery 12/21/2018. - Immunizations Immunizations up to date: No Hx Diphtheria, Pertussis, Tetanus Vaccination: No Hx Pneumococcal Vaccination: 07/02/12 Physical Exam - Vital signs Vitals: Temp Pulse Resp BP Pulse Ox 99.0 F 94 18 137/66 H 100 06/22/20 14:21 06/22/20 14:21 06/22/20 14:21 06/22/20 14:21 06/22/20 14:21 Course - Re-evaluation Re-evalutation: 06/22/20 19:22 Discussed x-ray results with patient. Patient states he was out of his pain medications because he had given 1 to his girl. I did tell him that he was not allowed to get them to family members or friends and that is why he was out. I did give him a dose for the day but I told him he would need to use ibuprofen and his gabapentin until he is seen by his primary care doctor as we cannot write a prescription for him to share with this girl. Patient verbalized understanding and agreement with treatment plan and patient was discharged home. - Vital Signs Vital signs: Temp Pulse Resp BP Pulse Ox 99.0 F 94 18 137/66 H 100 06/22/20 14:21 06/22/20 14:21 06/22/20 14:21 06/22/20 14:21 06/22/20 14:21 - Diagnostic Test Radiology reviewed: Image reviewed, Reports reviewed Discharge - Discharge Clinical Impression: Chronic left shoulder pain Condition: Stable Disposition: HOME, SELF-CARE Additional Instructions: Chronic Pain Control Stress, inactivity, and depression make pain more severe regardless of the cause of the pain. Stress and poor physical condition can cause pain such as headaches and backache. Relaxation: Rest in a quiet place with your eyes closed for 20 minutes twice daily. Concentrate on a pleasant image, or simply "feel" your breathing. Clear your mind. Stress management: Deal with your "stressors." Either take action, or eliminate the stressor from your life. Don't let things hang over you. Accept those things you can't change. Nutrition: Eat small, balanced meals -- don't skip, don't overeat. Meals should be high-carbohydrate, low-sugar, low-fat. Exercise: Exercise helps painful conditions and eases stress. Get 30 minutes of moderate exercise, five days a week. Do an activity that does not flare your pain. Precautions: Pain which continues to disrupt daily activities, or which changes in nature, requires a medical evaluation. Pain Clinic referral is available. We do not manage chronic pain in the Emergency Department. We will try to appropriately help you through an acute flare of your chronic painful condition, but for on-going chronic pain that does not improve, you will need to see your private doctor or spray ii painter. We do not provide repeated medication management of chronic painful conditions. If you wish, we can provide the name of local pain management physicians. Acetaminophen Acetaminophen may be taken for pain relief or fever control. It's much safer than aspirin, offering a wider range of "safe" dosages. It is safe during . Some brand names are Tylenol, Panadol, Datril, Anacin 3, Tempra, and Liquiprin. Acetaminophen can be repeated every four hours. The following are maximum recommended dosages: WEIGHT Dose Drops Elixir Chewable(80mg) (LBS.) drprs=droppers tsp=teaspoon 6 40 mg .4 ml (1/2) 6-11 80 mg .8 ml (full) 1/2 tsp 1 tab 12-16 120 mg 1 1/2 drprs 3/4 tsp 1 1/2 tabs 17-23 160 mg 2 drprs 1 tsp 2 tabs 24-30 240 mg 3 drprs 1 1/2 tsp 3 tabs 30-35 320 mg 2 tsp 4 tabs 36-41 360 mg 2 1/4 tsp 4 1/2 tabs 42-47 400 mg 2 1/2 tsp 5 tabs 48-53 480 mg 3 tsp 6 tabs 54-59 520 mg 3 1/4 tsp 6 1/2 tabs 60-64 560 mg 3 1/2 tsp 7 tabs 65-70 600 mg 3 3/4 tsp 7 1/2 tabs 71-76 640 mg 4 tsp 8 tabs 77-82 720 mg 4 1/2 tsp 9 tabs 83-88 800 mg 5 tsp 10 tabs >89 pounds or adults 650 mg to 900 mg Acetaminophen can be repeated every four hours. Maximum daily dose not to exceed 4000 mg. These maximum recommended dosages are slightly higher than the dosages written on the product container, but these dosages are very safe and well below the toxic dosage for acetaminophen. Ibuprofen Ibuprofen is an excellent, safe drug for pain control. In addition, it has potent antiinflammatory effects which are beneficial, especially in the treatment of injuries, arthritis, or tendonitis. It's best to take ibuprofen with food. Persons with ulcer disease or allergy to aspirin should notify their physician of this before taking ibuprofen. Take the medication exactly as prescribed. Don't take additional doses unless instructed to do so by your doctor. If you develop wheezing, shortness of breath, hives, faintness, stomach pain, vomiting, or dark black stools, return for re-evaluation at once. Your x-ray does not show any acute injuries or changes. It does show chronic arthritis and chronic changes. Please follow-up with your primary care doctor on Wednesday. Please be sure to move the shoulder during this weekend only will get stiff and you will not be able to move it. Oral Narcotic Medication You have been given a dose of oxycodone for pain control. You will not get a further dose until you follow-up with your primary care doctor as this is a chronic medication this medication is a narcotic. It's best taken with food, as nausea can result if taken on an empty stomach. Don't operate machinery or drive within six hours of taking this medication. Do not combine this medicine with alcohol, or with any medication which can cause sedation (such as cold tablets or sleeping pills) unless you get permission from the physician. Narcotics tend to cause constipation. If possible, drink plenty of fluids and eat a diet high in fiber and fruits. Forms: Elevated Blood Pressure Referrals: POLLO BESS MD [Primary Care Provider] - 06/24/20
[2020-06-22] MEDS ORDERED: OXYCODONE-ACETAMINOPHEN 5-325 MG TABLET PO ONE (14:47)
--- NOTE | 2020-06-22 15:09 | RADIOLOGY REPORT (SQ) ---
EXAM DESCRIPTION: SHOULDER LEFT 2 OR MORE VIEWS IMAGES COMPLETED DATE/TIME: 06/22/2020 1:53 pm REASON FOR STUDY: Increased pain left shoulder. COMPARISON: None. NUMBER OF VIEWS: Three views. TECHNIQUE: Internal rotation, external rotation, and Y view images acquired of the left shoulder. LIMITATIONS: None. FINDINGS: MINERALIZATION: Normal. BONES: Left shoulder arthroplasty with components in good alignment. No evidence of hardware fractur e or loosening. Degenerative change at the glenoid. No acute fracture, lytic or blastic bone lesion . JOINTS: Moderate osteoarthritis of the acromioclavicular joint. VISUALIZED LUNGS AND RIBS: No pneumothorax. No rib fracture. SOFT TISSUES: No radiopaque foreign body. OTHER: No other significant finding. IMPRESSION: Left shoulder arthroplasty without evidence of hardware complication. No acute fracture or dislocation. TECHNICAL DOCUMENTATION: JOB ID: [id number] 2010 [employer]- All Rights Reserved Reading location - IP/workstation name: [email or web address]
== END 2020-06-22 15:26 | disposition home or self-care (01) ==
LOC: ER 14:02
DX: M25.512 Pain in left shoulder (principal); G89.29 Other chronic pain; J45.909 Unspecified asthma, uncomplicated; Z79.899 Other long term (current) drug therapy; Z87.891 Personal history of nicotine dependence; Z98.890 Other specified postprocedural states
CPT/HCPCS: 99283; 73030; A9270

== ENCOUNTER → 2020-07-04 | Outpatient (CLI) | payer MEDICARE, MEDICAID ==
--- NOTE | 2020-07-04 13:51 | RADIOLOGY REPORT (SQ) ---
EXAM DESCRIPTION: VENOUS UNILATERAL LOWER IMAGES COMPLETED DATE/TIME: 07/04/2020 11:59 am REASON FOR STUDY: RLE SWELLING R22.41 LOCALIZED SWELLING, MASS AND LUMP, RIGHT LOWER LIMB COMPARISON: None. TECHNIQUE: Dynamic and static rivero scale and color images acquired of the right leg venous system. S elected spectral images acquired with additional compression and augmentation maneuvers. The contrala teral common femoral vein and saphenofemoral junction were also imaged. Images stored on PACS. LIMITATIONS: None. FINDINGS: COMMON FEMORAL: Normal phasicity, compression and augmentation. No visualized echogenic ma terial on rivero scale. No defects on color images. FEMORAL: Normal compression and augmentation. No visualized echogenic material on rivero scale. No defe cts on color images. POPLITEAL: Normal compression, augmentation. No visualized echogenic material on rivero scale. No defec ts on color images. CALF VESSELS: Normal compression, augmentation. No visualized echogenic material on rivero scale. No de fects on color images. GSV and SSV: Normal compression, augmentation. No visualized echogenic material on rivreo scale. No def ects on color images. ANY DEEP VENOUS INSUFFICIENCY: No. ANY EVIDENCE OF POPLITEAL CYST: No. OTHER: No other significant finding. CONTRALATERAL COMMON FEMORAL VEIN AND SAPHENOFEMORAL JUNCTION: Normal phasicity, compression and augmentation. No visualized echogenic material on rivero scale. No de fects on color images. IMPRESSION: NO EVIDENCE DVT OR SVT IN THE RIGHT LEG. TECHNICAL DOCUMENTATION: JOB ID: [id number] 2010 [email or web address]- All Rights Reserved Reading location - IP/workstation name: [email or web address]
== END ==
LOC: SP 10:12
PROVIDERS: ATTEND Internal Medicine
DX: R22.41 Localized swelling, mass and lump, right lower limb (principal)
CPT/HCPCS: 93971

== ENCOUNTER 2020-07-22 14:12 | Inpatient (IN) | payer MEDICARE, MEDICAID ==
[2020-07-22] MEDS: MORPHINE SULFATE 10 MG/ML INJ IV SCH (17:04)
[2020-07-22 17:52] LABS: MEAN CORPUSCULAR HEMOGLOBIN 32.1 pg (27.0-33.4); MEAN CORPUSCULAR HGB CONC 34.7 g/dL (32.0-36.0); MEAN CORPUSCULAR VOLUME 92 fl (80-97); PLATELET COUNT 367 10^3/uL (150-450); RED BLOOD COUNT 1.72 10^6/uL (4.35-5.55); RED CELL DISTRIBUTION WIDTH 16.7 % (11.5-14.0); WHITE BLOOD COUNT 9.4 10^3/uL (4.0-10.5)
[2020-07-22 17:54] LABS: HEMATOCRIT 15.9 % (37.9-51.0); HEMOGLOBIN 5.5 g/dL (13.5-17.0)
[2020-07-22 17:59] LABS: APPEARANCE,URINE SLIGHTLY-CLOUDY; BILIRUBIN,URINE SMALL (NEGATIVE); COLOR,URINE AMBER; GLUCOSE, URINE NEGATIVE (NEGATIVE); KETONES,URINE NEGATIVE (NEGATIVE); LEUKOCYTE ESTERASE,URINE MODERATE (NEGATIVE); NITRITE,URINE NEGATIVE (NEGATIVE); PROTEIN,URINE 30 mg/dL (NEGATIVE); URINE SPECIFIC GRAVITY 1.015
[2020-07-22 18:09] LABS: ALBUMIN 2.6 g/dL (3.5-5.0); ALKALINE PHOSPHATASE 175 U/L (38-126); ANION GAP 7 (5-19); ASPARTATE AMINO TRANSFERASE 81 U/L (17-59); BILIRUBIN,DIRECT 3.8 mg/dL (0.0-0.4); BILIRUBIN,TOTAL 4.9 mg/dL (0.2-1.3); BLOOD UREA NITROGEN 9 mg/dL (7-20); CALCIUM 8.3 mg/dL (8.4-10.2); CARBON DIOXIDE 20 mmol/L (22-30); CHLORIDE 105 mmol/L (98-107); GLUCOSE 83 mg/dL (75-110); POTASSIUM 3.7 mmol/L (3.6-5.0); TOTAL PROTEIN 7.3 g/dL (6.3-8.2)
[2020-07-22 18:19] LABS: UR PRO/CREAT RATIO RESULT 0.2 mg/mg (0.0-0.2); URINE CREATININE 152.5 mg/dL (22-328); URINE PROTEIN 32.6 mg/dL (<12)
[2020-07-22 18:24] LABS: FREE T4 (FREE THYROXINE) 1.68 ng/dL (0.78-2.19)
[2020-07-22 18:38] LABS: THYROID STIMULATING HORMONE 1.87 uIU/mL (0.47-4.68)
[2020-07-22 20:06] LABS: ABSOLUTE RETICS # 0.062 10^6/uL (0.028-0.122); RETICULOCYTE COUNT (AUTO) 3.49 % (0.66-2.85)
--- NOTE | 2020-07-22 20:35 | PDOC H&P ---
History of Present Illness Admission Date/PCP: 07/22/20 14:12 POLLO BESS MD History of Present Illness: SANDEEP GONZALEZ is a 64 year old male He came to the office for evaluation of yellowness of his sclera, lower extremity pain, he was evaluated in the office, it was felt that patient needed inpatient care. The initial blood work that was done demonstrated severe anemia, hemoglobin of 5, there was hyperbilirubinemia, predominantly bilirubin, elevated alkaline phosphatase that suggest obstructive jaundice. A CAT scan of the abdomen and pelvis with IV contrast was obtained, it demonstrated moderate right and trace left effusion with overlying airspace opacities, the visualized hepatic parenchyma appears diffusely hypodense suggesting hepatic steatosis, It is to be noted that patient has a history of alcohol Consumption until the last 4 months he said he has not took alcohol.. The gallbladder is moderately distended and demonstrates no evidence of calcified stones, the pancreas is unremarkable, The CAT scan did not demonstrate dilated common bile duct or intrahepatic duct, The iron indices suggest severe iron deficiency, On direct questioning he has no other recent colonoscopy, he will be transfused with packed red blood cells I will consult endoscopist either GI or the surgeon for colonoscopy and EGD Past Medical History Cardiac Medical History: Reports: Peripheral Vascular Disease Pulmonary Medical History: Reports: Asthma - MEDICATED GI Medical History: Reports: Gastroesophageal Reflux Disease Musculoskeltal Medical History: Reports: Arthritis - Osteoarthritis affecting multiple bilateral joints Past Surgical History Past Surgical History: Reports: Orthopedic Surgery - B bilateral shoulders, R ankle, R arm, Other - Foot surgery 12/21/2018. Social History Smoking Status: Former Smoker Electronic Cigarette use?: No Frequency of Alcohol Use: Heavy - Usually 1 or 2 beers daily Hx Recreational Drug Use: No Hx Prescription Drug Abuse: No Family History Family History: Malignancy, Other - Asthma Parental Family History Reviewed: Yes Children Family History Reviewed: Yes Sibling(s) Family History Reviewed.: Yes Medication/Allergy Home Medications: Fluticasone/Salmeterol [Advair 250-50 Diskus 14 Dose/Diskus] 1 puff IH Q12 12/01/17 Montelukast Sodium [Singulair 10 mg Tablet] 10 mg PO QPM 12/01/17 Oxycodone HCl/Acetaminophen [Percocet 10-325 mg Tablet] 1 each PO Q6HP PRN MDD FILLED 10/1 FOR 10 DAY SUPPLY 12/21/18 Gabapentin [Neurontin 300 mg Capsule] 600 mg PO Q8 01/10/19 Allergies/Adverse Reactions: iodine Allergy (Severe, Verified 01/13/19 21:25) Review of Systems Constitutional: ABSENT: chills, fever(s), headache(s), weight gain, weight loss Eyes: ABSENT: visual disturbances Ears: ABSENT: hearing changes Cardiovascular: ABSENT: chest pain, dyspnea on exertion, edema, orthropnea, palpitations Respiratory: ABSENT: cough, hemoptysis Gastrointestinal: ABSENT: abdominal pain, constipation, diarrhea, hematemesis, hematochezia, nausea, vomiting Genitourinary: ABSENT: dysuria, hematuria Musculoskeletal: ABSENT: joint swelling Integumentary: ABSENT: rash, wounds Neurological: ABSENT: abnormal gait, abnormal speech, confusion, dizziness, focal weakness, syncope Psychiatric: ABSENT: anxiety, depression, homidical ideation, suicidal ideation Endocrine: ABSENT: cold intolerance, heat intolerance, menstrual abnormalities, polydipsia, polyuria Hematologic/Lymphatic: ABSENT: easy bleeding, easy bruising, lymphadenopathy Physical Exam Vital Signs: Temp Pulse Resp BP Pulse Ox 97.6 F 96 17 107/51 L 07/22/20 19:19 07/22/20 19:19 07/22/20 19:19 07/22/20 19:19 Intake & Output 07/21/20 07/22/20 07/23/20 06:59 06:59 06:59 Weight 77.564 kg General appearance: PRESENT: no acute distress Head exam: PRESENT: atraumatic, normocephalic Eye exam: PRESENT: scleral icterus Ear exam: PRESENT: normal external ear exam Mouth exam: PRESENT: moist, tongue midline Neck exam: PRESENT: full ROM Respiratory exam: PRESENT: clear to auscultation janet Cardiovascular exam: PRESENT: RRR, +S1, +S2 Pulses: PRESENT: normal dorsalis pedis pul, +2 pedal pulses bilateral Vascular exam: PRESENT: normal capillary refill GI/Abdominal exam: PRESENT: normal bowel sounds, soft Rectal exam: PRESENT: deferred Neurological exam: PRESENT: alert, awake, oriented to person, oriented to place, oriented to time, oriented to situation, CN II-XII grossly intact Psychiatric exam: PRESENT: appropriate affect, normal mood Skin exam: PRESENT: dry, intact, warm Results Laboratory Results: 07/22/20 17:13 07/22/20 17:13 07/22/20 07/22/20 07/22/20 17:13 17:13 17:13 WBC 9.4 RBC 1.72 L Hgb 5.5 L Hct 15.9 L MCV 92 MCH 32.1 MCHC 34.7 RDW 16.7 H Plt Count 367 Retic Count (auto) Sodium 132.1 L Potassium 3.7 Chloride 105 Carbon Dioxide 20 L Anion Gap 7 BUN 9 Creatinine 0.61 Est GFR ( Amer) > 60 Glucose 83 Calcium 8.3 L Total Bilirubin 4.9 H AST 81 H Alkaline Phosphatase 175 H Total Protein 7.3 Albumin 2.6 L TSH 1.87 Free T4 1.68 Urine Color Urine Appearance Urine pH Ur Specific [place] Urine Protein Urine Glucose (UA) Urine Ketones Urine Blood Urine Nitrite Ur Leukocyte Esterase Urine WBC (Auto) Urine RBC (Auto) 07/22/20 07/22/20 17:45 19:53 WBC RBC Hgb Hct MCV MCH MCHC RDW Plt Count Retic Count (auto) 3.49 H Sodium Potassium Chloride Carbon Dioxide Anion Gap BUN Creatinine Est GFR ( Amer) Glucose Calcium Total Bilirubin AST Alkaline Phosphatase Total Protein Albumin TSH Free T4 Urine Color SHANNON Urine Appearance SLIGHTLY-CLOUDY Urine pH 6.0 Ur Specific [place] 1.015 Urine Protein 30 H Urine Glucose (UA) NEGATIVE Urine Ketones NEGATIVE Urine Blood NEGATIVE Urine Nitrite NEGATIVE Ur Leukocyte Esterase MODERATE H Urine WBC (Auto) 52 Urine RBC (Auto) 0 Assessment & Plan - Diagnosis (1) Iron deficiency anemia Qualifiers: Iron deficiency anemia type: chronic blood loss Qualified Code(s): D50.0 - Iron deficiency anemia secondary to blood loss (chronic) Is this a current diagnosis for this admission?: Yes Plan: He has severe iron deficiency anemia, he denies any melena stool there is no passage of luma blood in the stool (2) Hyperbilirubinemia Is this a current diagnosis for this admission?: Yes Plan: He has hyperbilirubinemia predominantly direct bilirubin does suggest obstructive disease but the CAT scan did not show an obstruction - Time Time Spent: Greater than 70 Minutes Critical Time spent with patient: 35 or more minutes Medications reviewed and adjusted accordingly: Yes Anticipated Discharge Disposition: Home, Self Care Anticipated Discharge Timeframe: 7 days
[2020-07-22] MEDS ORDERED: NORMAL SALINE 250 ML IV PRN ×2 (21:15)
[2020-07-22 21:30] LABS: FOLATE 5.79 ng/mL (>2.76)
--- NOTE | 2020-07-22 21:30 | RADIOLOGY REPORT (SQ) ---
CT ABDOMEN AND PELVIS WITH INTRAVENOUS CONTRAST: 07/22/2020 8:25 PM ACCOUNTS ADJUSTABLE CLERK HISTORY: 64-year old with concern for obstruction, abdominal distention.. COMPARISON: None available TECHNIQUE: Axial contiguous images were obtained from the lung bases to the proximal femurs with intravenous intravenous contrast administered. Sagittal and coronal reconstructions were also obtained and reviewed. This exam was performed according to our departmental dose-optimization program, which includes automated exposure control, adjustment of the mA and/or KV according to the patient's size and/or use of iterative reconstruction technique. FINDINGS: There is a moderate right and trace left effusion with overlying airspace opacities. The visualized hepatic parenchyma appears diffusely hypodense, suggesting hepatic steatosis. The gallbladder is moderately distended, and demonstrates no evidence of calcified gallstones. The spleen is normal in size. The pancreas is unremarkable. The bilateral adrenal glands are unremarkable. Both kidneys demonstrate no evidence of hydronephrosis. No renal or ureteral calculi are seen. The urinary bladder is mildly distended. There is fat seen at the bilateral inguinal canals. The stomach is not well distended. The small bowel loops appear unremarkable. No pericolonic inflammatory stranding is seen. The appendix is unremarkable. There is no evidence of pneumoperitoneum. Trace free fluid is seen. The IVC is unremarkable. The visualized portions of the abdominal aorta are within normal limits of size. No significantly enlarged lymph nodes are seen in the abdomen or pelvis. Review of the bone show no evidence of any suspicious lytic or blastic lesions. There are multilevel disc osteophyte seen at the lumbar spine. IMPRESSION: No acute process is seen within the abdomen or pelvis. Hepatic steatosis There is a moderate right and trace left effusion with overlying airspace opacities. These may reflect atelectasis or infection.
--- NOTE | 2020-07-22 21:31 | RADIOLOGY REPORT (SQ) ---
PA and lateral chest radiograph: 07/22/2020 8:29 PM HOURLY SHIFT History: 64-year old patient with jaundice. Comparison: Chest radiograph performed 12/21/2014 Findings: The cardiomediastinal silhouette is normal in size. No pneumothorax is seen. There is a trace right effusion. There bilateral reverse shoulder arthroplasty seen. Bilateral interstitial airspace opacities are seen. There is elevation of the right hemidiaphragm. There are multilevel anterior bridging osteophytes, which may reflect evidence of DISH. impression: There is a trace right pleural effusion with some overlying airspace opacities. These may represent asymmetric edema, atelectasis, or infection.
[2020-07-22 21:33] LABS: IRON(TIBC) < 10.1 ug/dL (49-181)
[2020-07-22] MEDS: GABAPENTIN 300 MG CAPSULE PO SCH (22:22)
[2020-07-23] MEDS: MORPHINE SULFATE 10 MG/ML INJ IV SCH ×5 (02:53→23:58)
[2020-07-23] MEDS: GABAPENTIN 300 MG CAPSULE PO SCH ×3 (06:46→21:49)
[2020-07-23] MEDS: NORMAL SALINE 1000 ML 1,000 ML IV PRN (06:47)
[2020-07-23 10:28] LABS: ABSOLUTE EOSINOPHILS # (AUTO) 0.1 10^3/uL (0.0-0.6); ABSOLUTE LYMPHOCYTES (AUTO) 1.2 10^3/uL (0.5-4.7); ABSOLUTE MONOCYTES (AUTO) 0.9 10^3/uL (0.1-1.4); BASOPHILS % (AUTO) 0.5 % (0-2); EOSINOPHILS % (AUTO) 1.5 % (0-6); HEMATOCRIT 21.1 % (37.9-51.0); LYMPHOCYTES % (AUTO) 12.5 % (13-45); MEAN CORPUSCULAR HGB CONC 34.7 g/dL (32.0-36.0); MEAN CORPUSCULAR VOLUME 90 fl (80-97); MONOCYTES % (AUTO) 9.3 % (3-13); PLATELET COUNT 313 10^3/uL (150-450); RED BLOOD COUNT 2.36 10^6/uL (4.35-5.55); RED CELL DISTRIBUTION WIDTH 16.1 % (11.5-14.0); SEGMENTED NEUTROPHILS % (AUTO) 76.2 % (42-78); TOTAL CELLS COUNTED % (AUTO) 100 %; WHITE BLOOD COUNT 9.2 10^3/uL (4.0-10.5)
[2020-07-23 10:37] LABS: HEMOGLOBIN 7.3 g/dL (13.5-17.0)
[2020-07-23] MEDS: FLUTICASONE/VILANTEROL 200-25 MCG/DOSE IH SCH (11:36)
[2020-07-23] MEDS ORDERED: NORMAL SALINE 250 ML IV PRN ×2 (12:45)
--- NOTE | 2020-07-23 18:34 | PDOC PROGRESS REPORT ---
Subjective Date:: 07/23/20 Subjective:: Patient was admitted yesterday for the management of severe anemia in the contex t of hyperbilirubinemia. He was transfused with 2 units of packed red blood cells, posttransfusion hemoglobin is 7, he will receive 2 more units, will consult surgical list for GI endoscopy Reason For Visit: JAUNDICE Physical Exam Vital Signs: Temp Pulse Resp BP Pulse Ox 98 F 82 18 129/66 H 100 07/23/20 17:30 07/23/20 17:30 07/23/20 17:15 07/23/20 17:30 07/23/20 17:30 Intake & Output 07/22/20 07/23/20 07/24/20 06:59 06:59 06:59 Intake Total 860 780 Balance 860 780 Weight 78 kg General appearance: PRESENT: no acute distress Eye exam: PRESENT: PERRLA, scleral icterus Respiratory exam: PRESENT: clear to auscultation janet Cardiovascular exam: PRESENT: +S1, +S2 GI/Abdominal exam: PRESENT: soft Neurological exam: PRESENT: alert Results Laboratory Results: 07/23/20 09:52 07/22/20 17:13 07/22/20 07/22/20 07/22/20 17:13 19:53 19:53 WBC RBC Hgb Hct MCV MCH MCHC RDW Plt Count Seg Neutrophils % Retic Count (auto) 3.49 H Iron < 10.1 L TIBC 188 L Ferritin 783.00 H Vitamin B12 > 1000.0 H Folate 5.79 TSH 1.87 Free T4 1.68 Stool Occult Blood Blood Type Antibody Screen 07/22/20 07/23/20 07/23/20 19:53 09:52 11:10 WBC 9.2 RBC 2.36 L Hgb 7.3 L Hct 21.1 L MCV 90 MCH 31.0 MCHC 34.7 RDW 16.1 H Plt Count 313 Seg Neutrophils % 76.2 Retic Count (auto) Iron TIBC Ferritin Vitamin B12 Folate TSH Free T4 Stool Occult Blood NEGATIVE Blood Type O POSITIVE Antibody Screen NEGATIVE Impressions: Abdomen/Pelvis CT 07/22/20 00:00 IMPRESSION: No acute process is seen within the abdomen or pelvis. Hepatic steatosis There is a moderate right and trace left effusion with overlying airspace opacities. These may reflect atelectasis or infection. Assessment & Plan - Diagnosis (1) Iron deficiency anemia Qualifiers: Iron deficiency anemia type: chronic blood loss Qualified Code(s): D50.0 - Iron deficiency anemia secondary to blood loss (chronic) Is this a current diagnosis for this admission?: Yes Plan: Patient received 2 units of packed red blood cells yesterday, he will receive 2 more units today we will consult the surgeon for GI endoscopy (2) Hyperbilirubinemia Is this a current diagnosis for this admission?: Yes - Time Time Spent with patient: 25-34 minutes Level of Care: MEDICAL Medications reviewed and adjusted accordingly: Yes Anticipated discharge: Home Anticipated DC Timeframe: Other
[2020-07-23 22:50] LABS: ABSOLUTE BASOPHILS # (AUTO) 0.1 10^3/uL (0.0-0.2); ABSOLUTE EOSINOPHILS # (AUTO) 0.2 10^3/uL (0.0-0.6); ABSOLUTE LYMPHOCYTES (AUTO) 1.2 10^3/uL (0.5-4.7); ABSOLUTE MONOCYTES (AUTO) 0.8 10^3/uL (0.1-1.4); ABSOLUTE NEUT (AUTO) 8.6 10^3/uL (1.7-8.2); BASOPHILS % (AUTO) 0.6 % (0-2); EOSINOPHILS % (AUTO) 1.6 % (0-6); HEMATOCRIT 27.4 % (37.9-51.0); LYMPHOCYTES % (AUTO) 11.3 % (13-45); MEAN CORPUSCULAR HEMOGLOBIN 30.4 pg (27.0-33.4); MEAN CORPUSCULAR HGB CONC 34.6 g/dL (32.0-36.0); MEAN CORPUSCULAR VOLUME 88 fl (80-97); MONOCYTES % (AUTO) 7.1 % (3-13); PLATELET COUNT 320 10^3/uL (150-450); RED BLOOD COUNT 3.11 10^6/uL (4.35-5.55); RED CELL DISTRIBUTION WIDTH 15.9 % (11.5-14.0); SEGMENTED NEUTROPHILS % (AUTO) 79.4 % (42-78); TOTAL CELLS COUNTED % (AUTO) 100 %; WHITE BLOOD COUNT 10.8 10^3/uL (4.0-10.5)
[2020-07-23 22:55] LABS: HEMOGLOBIN 9.5 g/dL (13.5-17.0)
[2020-07-24] MEDS: NORMAL SALINE 1000 ML 1,000 ML IV PRN
[2020-07-24] MEDS: GABAPENTIN 300 MG CAPSULE PO SCH ×3 (05:21→21:58)
[2020-07-24] MEDS: MORPHINE SULFATE 10 MG/ML INJ IV SCH ×4 (05:22→23:56)
[2020-07-24] MEDS: FLUTICASONE/VILANTEROL 200-25 MCG/DOSE IH SCH (09:44)
--- NOTE | 2020-07-24 11:07 | RADIOLOGY REPORT (SQ) ---
EXAM DESCRIPTION: MRI ABDOMEN WITHOUT IMAGES COMPLETED DATE/TIME: 07/24/2020 8:47 am REASON FOR STUDY: MRCP FOR EVAL OBSTRUCTIVE JAUNDICE COMPARISON: CT dated 07/22/2020 TECHNIQUE: Noncontrast MRCP. Source and MIP images reviewed. LIMITATIONS: None. FINDINGS: GALLBLADDER: Gallbladder distended with probable pericholecystic edema. Possibly thickene d wall. Recommend ultrasound for further assessment. INTRAHEPATIC DUCTS: Nondilated. EXTRAHEPATIC DUCTS: Common duct is normal caliber. No dilatation of the pancreatic duct. No ductal filling defects noted. PANCREAS: Limited visualization due to respiratory motion. No gross abnormalities. LIVER, SPLEEN, KIDNEYS, ADRENALS: No significant abnormality. VESSELS: No evidence of aneurysm. Grossly appropriate flow voids in the major vascular structures. LUNG BASES: Moderate right-sided pleural effusion is demonstrated on prior CT. OTHER: Trace amount of peritoneal fluid. IMPRESSION: Distended gallbladder with possible pericholecystic edema. Study is degraded by patient respiratory motion. Correlation with ultrasound is recommended. No intra or extrahepatic biliary d uctal dilatation. No ductal filling defects. TECHNICAL DOCUMENTATION: JOB ID: [id number] [employer]- All Rights Reserved Reading location - IP/workstation name: [email or web address]
--- NOTE | 2020-07-24 11:39 | PDOC CONSULTATION ---
Consultation Consult Date: 07/24/20 Provider Consulted: LEANNE MCKEON Consult reason:: Anemia unknown cause History of Present Illness Admission Date/PCP: 07/22/20 14:12 POLLO BESS MD History of Present Illness: SANDEEP GONZALEZ is a 64 year old male, healthy, with history of heavy drinking until few months ago (mainly beer), seen in the PCP office 3 days ago and found to be severely anemic with a hemoglobin of 5.5. Since then, the patient received 4 units of blood total with a current hemoglobin 9.5. His liver profile demonstrates hyperbilirubinemia (total bilirubin 4.9, direct 3.8) and slight elevation alkaline phosphatase 175. CEA level is elevated 3.09 and his iron level as well as his TIBC are decreased. His remaining blood work within normal limits. The patient denies change of bowel habits, loss of appetite, abdominal pain, hematemesis, coffee-ground emesis or change of bowel habits with hematochezia or melena. He reports a weight loss about 10 pounds for the past 3 months. Past Medical History Cardiac Medical History: Reports: Peripheral Vascular Disease Denies: Atrial Fibrillation, Congestive Heart Failure, Coronary Artery Disease, DVT, Myocardial Infarction, Hyperlipidema, Hypertension, Pulmonary Embolism, Heart Murmur Pulmonary Medical History: Reports: Asthma - MEDICATED Denies: Bronchitis, Chronic Obstructive Pulmonary Disease (COPD), Pneumonia, Respiratory Failure, Sleep Apnea, Tuberculosis Neurological Medical History: Denies: Seizures Endocrine Medical History: Denies: Diabetes Mellitus Type 1, Diabetes Mellitus Type 2, Hyperthyroidism, Hypothyroidism Malignancy Medical History: Denies: Lung Cancer GI Medical History: Reports: Gastroesophageal Reflux Disease Denies: Cirrhosis, Crohn's Disease, Diverticulitis, Hepatitis, Hiatal Hernia, Ulcerative Colitis Musculoskeltal Medical History: Reports: Arthritis - Osteoarthritis affecting multiple bilateral joints Denies: Fibromyalgia, Gout Skin Medical History: Denies: Eczema, Psoriasis Psychiatric Medical History: Denies: Depression Hematology: Denies: Anemia, Sickle Cell Disease, Bleeding Tendencies Past Surgical History Past Surgical History: Reports: Orthopedic Surgery - B bilateral shoulders, R ankle, R arm, Other - Foot surgery 12/21/2018. Denies: Appendectomy, Cholecystectomy, Colostomy, Coronary Artery Bypass Graft, Gastric Bypass Surgery, Herniorrhaphy, Pacemaker, Tonsillectomy Social History Smoking Status: Former Smoker Electronic Cigarette use?: No Frequency of Alcohol Use: Heavy - Usually 1 or 2 beers daily Hx Recreational Drug Use: No Hx Prescription Drug Abuse: No Family History Family History: Malignancy, Other - Asthma Parental Family History Reviewed: No Children Family History Reviewed: No Sibling(s) Family History Reviewed.: No Medication/Allergy Home Medications: Fluticasone/Salmeterol [Advair 250-50 Diskus 14 Dose/Diskus] 1 puff IH Q12 12/01/17 Montelukast Sodium [Singulair 10 mg Tablet] 10 mg PO QPM 12/01/17 Oxycodone HCl/Acetaminophen [Percocet 10-325 mg Tablet] 1 each PO Q6HP PRN MDD FILLED 04/25 FOR 10 DAY SUPPLY 12/21/18 Gabapentin [Neurontin 300 mg Capsule] 600 mg PO Q8 01/10/19 Allergies/Adverse Reactions: iodine Allergy (Severe, Verified 01/13/19 21:25) Physical Exam Vital Signs: Temp Pulse Resp BP Pulse Ox 98.3 F 79 20 116/65 97 07/24/20 05:06 07/24/20 07:53 07/24/20 05:06 07/24/20 07:53 07/24/20 07:53 Intake & Output 07/23/20 07/24/20 07/25/20 06:59 06:59 06:59 Intake Total 860 1900 Output Total 200 Balance 860 1700 Weight 78 kg 78.9 kg General appearance: PRESENT: no acute distress, thin, well-developed Eye exam: PRESENT: EOMI Mouth exam: PRESENT: neck supple Teeth exam: PRESENT: poor dentation Neck exam: PRESENT: full ROM Respiratory exam: PRESENT: clear to auscultation janet Cardiovascular exam: PRESENT: RRR GI/Abdominal exam: PRESENT: normal bowel sounds, soft, other - Not distended, not tender Rectal exam: PRESENT: deferred Extremities exam: PRESENT: full ROM Musculoskeletal exam: PRESENT: full ROM Neurological exam: PRESENT: alert, awake, CN II-XII grossly intact Skin exam: PRESENT: warm Results Laboratory Results: 07/23/20 21:46 07/22/20 17:13 07/22/20 07/23/20 07/23/20 19:53 11:10 21:46 WBC 10.8 H RBC 3.11 L Hgb 9.5 L D Hct 27.4 L MCV 88 MCH 30.4 MCHC 34.6 RDW 15.9 H Plt Count 320 Seg Neutrophils % 79.4 H Stool Occult Blood NEGATIVE Blood Type O POSITIVE Antibody Screen NEGATIVE Impressions: Abdomen/Pelvis CT 07/22/20 00:00 IMPRESSION: No acute process is seen within the abdomen or pelvis. Hepatic steatosis There is a moderate right and trace left effusion with overlying airspace opacities. These may reflect atelectasis or infection. Abdomen MRI 07/24/20 00:00 IMPRESSION: Distended gallbladder with possible pericholecystic edema. Study is degraded by patient respiratory motion. Correlation with ultrasound is recommended. No intra or extrahepatic biliary ductal dilatation. No ductal filling defects. Assessment & Plan - Diagnosis (1) Hyperbilirubinemia Is this a current diagnosis for this admission?: Yes (2) Iron deficiency anemia Qualifiers: Iron deficiency anemia type: chronic blood loss Qualified Code(s): D50.0 - Iron deficiency anemia secondary to blood loss (chronic) Is this a current diagnosis for this admission?: Yes - Plan Summary Plan Summary: Assessment: 64-year-old male with a severe anemia (hemoglobin 5.5) which appropriately improved following administration of 4 units of blood (hemoglobin 9.5 today) Hyperbilirubinemia of unknown cause, most likely secondary to liver disease due to heavy alcohol drinking in the past Low iron and total iron-binding capacity as per iron deficient anemia Elevated CEA, which may indicate chronic liver disease versus malignancy CT scan abdomen pelvis and MRCP reviewed with radiologist = pleural effusion on the right side, small amount of ascites, hepatomegaly, no evidence of liver disease, biliary disease, or pancreatic mass Plan: EGD colonoscopy tomorrow Bowel prep today Clear liquid diet N.p.o. after midnight IV fluids
[2020-07-24] MEDS ORDERED: MAGNESIUM CITRATE 296 ML BOTTLE PO ONE ×2 (11:40→15:45)
[2020-07-24] MEDS ORDERED: DEXTROSE 50%-WATER 25 GM/50 ML DISP.SYRIN IV PRN ×2 (11:43)
[2020-07-24] MEDS ORDERED: DEXTROSE 40% GEL 15 GM TUBE PO PRN ×2 (11:43)
[2020-07-24] MEDS ORDERED: GLUCAGON,HUMAN RECOMB 1 MG INJ SUBCUT PRN (11:43)
[2020-07-24 12:01] LABS: INTERNATIONAL RATION (INR) 1.43; PROTHROMBIN TIME 17.6 SEC (11.4-15.4)
[2020-07-24 12:02] LABS: PARTIAL THROMBOPLASTIN TIME 49.4 SEC (23.5-35.8)
[2020-07-24 12:03] LABS: ALBUMIN 2.6 g/dL (3.5-5.0); ALKALINE PHOSPHATASE 181 U/L (38-126); ANION GAP 11 (5-19); ASPARTATE AMINO TRANSFERASE 82 U/L (17-59); BILIRUBIN,DIRECT 3.9 mg/dL (0.0-0.4); BILIRUBIN,TOTAL 5.4 mg/dL (0.2-1.3); BLOOD UREA NITROGEN 7 mg/dL (7-20); CALCIUM 8.4 mg/dL (8.4-10.2); CARBON DIOXIDE 16 mmol/L (22-30); CHLORIDE 109 mmol/L (98-107); GLUCOSE 86 mg/dL (75-110); POTASSIUM 4.3 mmol/L (3.6-5.0); TOTAL PROTEIN 7.2 g/dL (6.3-8.2)
[2020-07-24] MEDS ORDERED: BISACODYL 5 MG TABEC PO ONE (16:00)
[2020-07-24] MEDS ORDERED: PEG 3350/NA SULF,BICARB,CL/KCL 4000 ML PO ONE (16:00)
--- NOTE | 2020-07-24 18:02 | EKG REPORT ---
SEVERITY:- ABNORMAL ECG - SINUS RHYTHM FIRST DEGREE AV BLOCK INCOMPLETE RIGHT BUNDLE BRANCH BLOCK : Confirmed by: Raúl Knapp MD 24-Jul-2020 18:01:33
[2020-07-24] MEDS ORDERED: NORMAL SALINE 250 ML IV PRN ×2 (18:58)
--- NOTE | 2020-07-24 20:33 | PDOC PROGRESS REPORT ---
Subjective Date:: 07/24/20 Subjective:: Patient seen by the bedside, he has received 4 units of packed red blood cells,H e has unexplained hyperbilirubinemia predominantly direct bilirubin. MRCP negative for any obstructive disease, scheduled for colonoscopy and EGD tomorrow Reason For Visit: JAUNDICE Physical Exam Vital Signs: Temp Pulse Resp BP Pulse Ox 98.3 F 79 20 116/65 97 07/24/20 05:06 07/24/20 07:53 07/24/20 05:06 07/24/20 07:53 07/24/20 07:53 Intake & Output 07/23/20 07/24/20 07/25/20 06:59 06:59 06:59 Intake Total 860 1900 240 Output Total 200 Balance 860 1700 240 Weight 78 kg 78.9 kg General appearance: PRESENT: no acute distress Eye exam: PRESENT: scleral icterus Respiratory exam: PRESENT: clear to auscultation janet GI/Abdominal exam: PRESENT: soft Neurological exam: PRESENT: alert Results Laboratory Results: 07/23/20 21:46 07/24/20 11:27 07/23/20 07/24/20 07/24/20 21:46 11:27 11:27 WBC 10.8 H RBC 3.11 L Hgb 9.5 L D Hct 27.4 L MCV 88 MCH 30.4 MCHC 34.6 RDW 15.9 H Plt Count 320 Seg Neutrophils % 79.4 H Sodium 135.6 L Potassium 4.3 Chloride 109 H Carbon Dioxide 16 L Anion Gap 11 BUN 7 Creatinine 0.54 Est GFR ( Amer) > 60 Glucose 86 Calcium 8.4 Total Bilirubin 5.4 H AST 82 H Alkaline Phosphatase 181 H Total Protein 7.2 Cancelled Albumin 2.6 L Impressions: Abdomen/Pelvis CT 07/22/20 00:00 IMPRESSION: No acute process is seen within the abdomen or pelvis. Hepatic steatosis There is a moderate right and trace left effusion with overlying airspace opacities. These may reflect atelectasis or infection. Abdomen MRI 07/24/20 00:00 IMPRESSION: Distended gallbladder with possible pericholecystic edema. Study is degraded by patient respiratory motion. Correlation with ultrasound is recommended. No intra or extrahepatic biliary ductal dilatation. No ductal filling defects. Assessment & Plan - Diagnosis (1) Iron deficiency anemia Qualifiers: Iron deficiency anemia type: chronic blood loss Qualified Code(s): D50.0 - Iron deficiency anemia secondary to blood loss (chronic) Is this a current diagnosis for this admission?: Yes Plan: Patient scheduled for colonoscopy and EGD (2) Hyperbilirubinemia Is this a current diagnosis for this admission?: Yes Plan: He has unexplained hyperbilirubinemia predominantly direct, MRCP negative for obstruction both intra and extrahepatic (3) Pleural effusion Is this a current diagnosis for this admission?: Yes Plan: He has significant pleural effusion, probably transudate, requires thoracentesis, is not symptomatic no S OB - Time Time Spent with patient: 25-34 minutes Level of Care: MEDICAL Anticipated discharge: Home
[2020-07-25] MEDS ORDERED: NA PHOS,M-B/NA PHOS,DI-BA (ADULT) 133 ML ENEMA PR ONE (06:00)
[2020-07-25] MEDS: GABAPENTIN 300 MG CAPSULE PO SCH ×3 (06:19→21:07)
[2020-07-25] MEDS: MORPHINE SULFATE 10 MG/ML INJ IV SCH ×3 (06:33→17:42)
[2020-07-25 06:50] LABS: ABSOLUTE BASOPHILS # (AUTO) 0.1 10^3/uL (0.0-0.2); ABSOLUTE EOSINOPHILS # (AUTO) 0.1 10^3/uL (0.0-0.6); ABSOLUTE LYMPHOCYTES (AUTO) 1.2 10^3/uL (0.5-4.7); ABSOLUTE MONOCYTES (AUTO) 0.9 10^3/uL (0.1-1.4); ABSOLUTE NEUT (AUTO) 9.2 10^3/uL (1.7-8.2); BASOPHILS % (AUTO) 0.6 % (0-2); EOSINOPHILS % (AUTO) 1.2 % (0-6); HEMATOCRIT 32.1 % (37.9-51.0); HEMOGLOBIN 10.7 g/dL (13.5-17.0); LYMPHOCYTES % (AUTO) 10.8 % (13-45); MEAN CORPUSCULAR HEMOGLOBIN 29.7 pg (27.0-33.4); MEAN CORPUSCULAR HGB CONC 33.4 g/dL (32.0-36.0); MEAN CORPUSCULAR VOLUME 89 fl (80-97); MONOCYTES % (AUTO) 7.7 % (3-13); PLATELET COUNT 358 10^3/uL (150-450); RED CELL DISTRIBUTION WIDTH 16.1 % (11.5-14.0); SEGMENTED NEUTROPHILS % (AUTO) 79.7 % (42-78); TOTAL CELLS COUNTED % (AUTO) 100 %; WHITE BLOOD COUNT 11.6 10^3/uL (4.0-10.5)
[2020-07-25 07:02] LABS: ANION GAP 9 (5-19); BLOOD UREA NITROGEN 6 mg/dL (7-20); CARBON DIOXIDE 17 mmol/L (22-30); CHLORIDE 109 mmol/L (98-107); GLUCOSE 79 mg/dL (75-110)
[2020-07-25] MEDS ORDERED: PROPOFOL INJ 200 MG/20 ML VIAL IV ONE (07:13)
--- NOTE | 2020-07-25 09:52 | Operative Report ---
Operative Report DATE OF SURGERY: 07/25/20 PREOPERATIVE DIAGNOSIS: 1. Anemia. 2. Hyperbilirubinemia. 3. Elevated CEA level POSTOPERATIVE DIAGNOSIS: Same with. 1. Mid esophageal ulcer. 2. Mild gastritis. 3. Mild duodenitis. 4. Scattered diverticulosis. 5. No upper or lower endoscopic evidence of GI bleeding source OPERATION: 1. Esophagogastroduodenoscopy. 2. Total colonoscopy to cecum with photodocumentation. SURGEON: MILKA ADAMSON ANESTHESIA: LMAC TISSUE REMOVED OR ALTERED: None COMPLICATIONS: None ESTIMATED BLOOD LOSS: None INTRAOPERATIVE FINDINGS: See below PROCEDURE: The patient's preoperative Covid status was negative. He is taken to the operating room where LMAC anesthesia was induced. Monitoring devices attached for LMAC anesthesia. He is placed in semirecumbent position, right side up. Oral mouthpiece inserted. Surgical plan surgical timeout were conducted. The flexible upper endoscope was advanced to the oropharynx, down the esophagus through the stomach and into the first and second portion of the duodenum. Patient tolerated procedure well. There was no evidence of active bleeding, or clot. The first portion of the duodenum had mild duodenitis. Photos taken. No evidence of ulcer stricture polyp or tumor. In the stomach there was mild gastritis along the greater curvature proximally. No evidence of ulcer in the pyloric channel, or gastric body. No biopsies taken. Scope was retroflexed with good look at GE junction. No pathology seen. The scope was brought back to the GE junction. There is moderate irregularity of the Z-line. In the mid esophagus at approximately 30 cm from the incisors there was a 1 cm shallow to a lesion, photographed, no biopsies taken. This was consistent with a subacute ulcer. The remainder the esophagus was unremarkable. Scope was withdrawn to the patient's oropharynx. He tolerated procedure well Patient was placed in the extreme left lateral cubitus position, knees to chest. Second timeout conducted. Rectal exam was performed. Slight firmness to the anterior anal verge consistent with scar. The flexible adult upper endoscope was advanced through the anal rectal canal all the way to the cecum. Visualization of the ileocecal valve was achieved with photodocumentation. This was an excellent study and well-prepped bowel. The scope was withdrawn the length the colon taken Koza carefully. There were scattered diverticulosis, but no evidence of bleeding, clot, tumor, or stricture. There were no polyps seen. The scope was withdrawn from the patient's anus after retroflexing with visualization of internal hemorrhoids. No active bleeding seen. Scope was withdrawn to the patient's anus. He tolerated the procedure well, was taken to recovery room in stable condition Plan: 1. Supportive care; patient has evidence of further GI bleeding, distal endoscopy may be considered 2. I have spoken with Dr. Gonsales regarding the above 3. Surgery will sign off; please reconsult if clinically indicated.
[2020-07-25] MEDS: FLUTICASONE/VILANTEROL 200-25 MCG/DOSE IH SCH (10:24)
--- NOTE | 2020-07-25 12:46 | RADIOLOGY REPORT (SQ) ---
EXAM DESCRIPTION: CHEST SINGLE VIEW IMAGES COMPLETED DATE/TIME: 07/25/2020 11:37 am REASON FOR STUDY: S/P RT THORA COMPARISON: 07/22/2020 EXAM PARAMETERS: NUMBER OF VIEWS: One view. TECHNIQUE: Single frontal radiographic view of the chest acquired. RADIATION DOSE: NA LIMITATIONS: None. FINDINGS: LUNGS AND PLEURA: Minimal pleural effusions. No pneumothorax status post thoracentesis. Limited opacification the medial right base. MEDIASTINUM AND HILAR STRUCTURES: No masses. Contour normal. HEART AND VASCULAR STRUCTURES: Heart normal in size. Normal vasculature. BONES: No acute findings. HARDWARE: None in the chest. OTHER: No other significant finding. IMPRESSION: No pneumothorax. Minimal pleural effusions. Limited opacification in the medial right base, atelectasis versus pneumonia. TECHNICAL DOCUMENTATION: JOB ID: [id number] 2010 [employer]- All Rights Reserved Reading location - IP/workstation name: [email or web address]
[2020-07-25 13:19] LABS: FLUID APPEARANCE CLOUDY; FLUID COLOR YELLOW; FLUID SOURCE LUNG; FLUID TYPE PLEURAL; FLUID VISCOSITY LIQUID
--- NOTE | 2020-07-25 13:28 | RADIOLOGY REPORT (SQ) ---
EXAM DESCRIPTION: U/S THORACENTESIS WITH IMAGING IMAGES COMPLETED DATE/TIME: 07/25/2020 11:45 am REASON FOR STUDY: pleural effusion COMPARISON: None. RADIATION DOSE: None LIMITATIONS: None. PROCEDURE: Procedure, risks, benefit, and alternative explained to patient who then gave written con sent. The right posterior chest wall was marked using ultrasound guidance. A time-out was called fo r correct marking verification. Chest prepped and draped using sterile technique. Local anesthesia a chieved using 6 ml of 1% lidocaine injection. A 6 Faroese [id number]-[id number] needle was introduced into the right pleural space. Fluid was aspirated. The was removed and the entry site was covered with sterile bandage. No immediate complications noted. Fluid was sent to the lab for analysis. Images acquired during the procedure were stored on PACS. FINDINGS: ENTRY SITE: Right posterior chest wall FLUID VOLUME: 900 mL FLUID ANALYSIS: Straw-colored OTHER: None IMPRESSION: SUCCESSFUL RIGHT THORACENTESIS USING ULTRASOUND GUIDANCE. COMMENT: Patient medication list reviewed: Yes- Quality ID# [id number]:Eligible professional attests to doc umenting in the medical record they obtained, updated, or reviewed the patient's current medications. TECHNICAL DOCUMENTATION: JOB ID: [id number] 2010 [employer]- All Rights Reserved Reading location - IP/workstation name: [email or web address]
--- NOTE | 2020-07-25 15:08 | RADIOLOGY REPORT (SQ) ---
EXAM DESCRIPTION: CHEST SINGLE VIEW IMAGES COMPLETED DATE/TIME: 07/25/2020 2:03 pm REASON FOR STUDY: 2 HOURS- S/P RT THORA COMPARISON: 07/25/2020 EXAM PARAMETERS: NUMBER OF VIEWS: One view. TECHNIQUE: Single frontal radiographic view of the chest acquired. RADIATION DOSE: NA LIMITATIONS: None. FINDINGS: LUNGS AND PLEURA: No pneumothorax. There continues to be mild opacification the medial ri ght lung base. Minimal right pleural effusion. MEDIASTINUM AND HILAR STRUCTURES: No masses. Contour normal. HEART AND VASCULAR STRUCTURES: Heart normal in size. Normal vasculature. BONES: No acute findings. HARDWARE: None in the chest. OTHER: No other significant finding. IMPRESSION: No pneumothorax. Minimal right pleural effusion. Minimal opacification in the medial r ight base, atelectasis versus pneumonia. TECHNICAL DOCUMENTATION: JOB ID: [id number] 2010 [employer]- All Rights Reserved Reading location - IP/workstation name: [email or web address]
--- NOTE | 2020-07-25 15:30 | PDOC PROGRESS REPORT ---
Subjective Date:: 07/25/20 Subjective:: Patient had EGD and colonoscopy done today found ulcer in the mid esophagus otherwise negative study. He also underwent thoracentesis 900 cc of pleural fluid was collected, this is most likely transudate he has hypoalbuminemia Reason For Visit: JAUNDICE Physical Exam Vital Signs: Temp Pulse Resp BP Pulse Ox 97.9 F 77 18 141/64 H 95 07/25/20 12:00 07/25/20 12:00 07/25/20 12:00 07/25/20 12:00 07/25/20 12:00 Intake & Output 07/24/20 07/25/20 07/26/20 06:59 06:59 06:59 Intake Total 1900 1195 890 Output Total 200 1000 Balance 1700 195 890 Weight 78.9 kg 77.8 kg General appearance: PRESENT: no acute distress Eye exam: PRESENT: PERRLA Respiratory exam: PRESENT: clear to auscultation janet Cardiovascular exam: PRESENT: +S1, +S2 GI/Abdominal exam: PRESENT: soft Results Laboratory Results: 07/25/20 06:08 07/25/20 06:08 07/25/20 07/25/20 07/25/20 00:39 06:08 06:08 WBC 11.6 H RBC 3.60 L Hgb 10.7 L Hct 32.1 L MCV 89 MCH 29.7 MCHC 33.4 RDW 16.1 H Plt Count 358 Seg Neutrophils % 79.7 H Sodium 135.3 L Potassium 4.0 Chloride 109 H Carbon Dioxide 17 L Anion Gap 9 BUN 6 L Creatinine 0.50 L Est GFR ( Amer) > 60 Glucose 79 Calcium 9.0 Fluid Type Fluid Source Fluid Color Fluid Appearance Fluid Viscosity Fluid WBC Fluid RBC Blood Type O POSITIVE Antibody Screen NEGATIVE 07/25/20 11:20 WBC RBC Hgb Hct MCV MCH MCHC RDW Plt Count Seg Neutrophils % Sodium Potassium Chloride Carbon Dioxide Anion Gap BUN Creatinine Est GFR ( Amer) Glucose Calcium Fluid Type PLEURAL Fluid Source LUNG Fluid Color YELLOW Fluid Appearance CLOUDY Fluid Viscosity LIQUID Fluid WBC 278 Fluid RBC 149 Blood Type Antibody Screen Impressions: Abdomen/Pelvis CT 07/22/20 00:00 IMPRESSION: No acute process is seen within the abdomen or pelvis. Hepatic steatosis There is a moderate right and trace left effusion with overlying airspace opacities. These may reflect atelectasis or infection. Abdomen MRI 07/24/20 00:00 IMPRESSION: Distended gallbladder with possible pericholecystic edema. Study is degraded by patient respiratory motion. Correlation with ultrasound is recommended. No intra or extrahepatic biliary ductal dilatation. No ductal filling defects. Thoracentesis Ultrasound 07/25/20 00:00 IMPRESSION: SUCCESSFUL RIGHT THORACENTESIS USING ULTRASOUND GUIDANCE. Chest X-Ray 07/25/20 13:45 IMPRESSION: No pneumothorax. Minimal right pleural effusion. Minimal opacification in the medial right base, atelectasis versus pneumonia. Assessment & Plan - Diagnosis (1) Iron deficiency anemia Qualifiers: Iron deficiency anemia type: chronic blood loss Qualified Code(s): D50.0 - Iron deficiency anemia secondary to blood loss (chronic) Is this a current diagnosis for this admission?: Yes Plan: He has severe iron deficiency anemia, status post transfusion with 4 units of packed red blood cells status post EGD and colonoscopy, no discernible cause was found for the blood loss, the severe deficiency could also be related to chronic alcohol use malabsorption syndrome. He has elevated ferritin, an acute phase re actant, typically in iron deficiency anemia ferritin is low but in this case it is elevated suggesting underlining chronic inflammation probably tobacco abuse. Transfuse with iron Injectafer to restore storage (2) Hyperbilirubinemia Is this a current diagnosis for this admission?: Yes Plan: He has hyper bilirubinemia predominantly direct, no evidence of obstruction from MRCP,? Related to alcohol abuse liver disease (3) Pleural effusion Is this a current diagnosis for this admission?: Yes Plan: He has significant pleural effusion, probably transudate,Status post thoracentesis done today (4) Hypoalbuminemia Is this a current diagnosis for this admission?: Yes Plan: He has significant hypoalbuminemia suggesting severe liver disease from years of alcohol abuse loss of synthetic function of the liver is a sign of severe liver disease (5) Alcoholic liver disease Is this a current diagnosis for this admission?: Yes - Time Time Spent with patient: 35 or more minutes Level of Care: MEDICAL Medications reviewed and adjusted accordingly: Yes Anticipated discharge: Home Anticipated DC Timeframe: within 48 hours
[2020-07-25] MEDS ORDERED: FERRIC CARBOXYMALTOSE INJ 750 MG/15 ML VIAL IV SCH (15:45)
[2020-07-25 15:56] LABS: ALBUMIN 2.7 g/dL (3.5-5.0); ALKALINE PHOSPHATASE 205 U/L (38-126); ASPARTATE AMINO TRANSFERASE 84 U/L (17-59); BILIRUBIN,DIRECT 3.8 mg/dL (0.0-0.4); BILIRUBIN,TOTAL 5.2 mg/dL (0.2-1.3); TOTAL PROTEIN 7.6 g/dL (6.3-8.2)
[2020-07-25] MEDS: FERRIC CARBOXYMALTOSE 750 MG in NORMAL SALINE 250 ML IV ONE ×2 (15:59→18:47)
[2020-07-25] MEDS ORDERED: FERRIC CARBOXYMALTOSE 750 MG in NORMAL SALINE 250 ML IV ONE (18:00)
[2020-07-25] MEDS: NORMAL SALINE 1000 ML 1,000 ML IV PRN (22:05)
[2020-07-26] MEDS: MORPHINE SULFATE 10 MG/ML INJ IV SCH ×3 (00:28→11:45)
[2020-07-26] MEDS: GABAPENTIN 300 MG CAPSULE PO SCH ×2 (05:06→16:01)
[2020-07-26] MEDS: NORMAL SALINE 1000 ML 1,000 ML IV PRN (06:18)
[2020-07-26] MEDS: FLUTICASONE/VILANTEROL 200-25 MCG/DOSE IH SCH (10:15)
[2020-07-26 15:21] VITALS: BP 135/72
--- NOTE | 2020-07-26 19:17 | PDOC DISCHARGE SUMMARY ---
Impression - Admit/DC Date/PCP Admission Date/Primary Care Provider: 07/22/20 14:12 POLLO BESS MD Discharge Date: 07/26/20 - Discharge Diagnosis (1) Iron deficiency anemia Is this a current diagnosis for this admission?: Yes (2) Hyperbilirubinemia Is this a current diagnosis for this admission?: Yes (3) Pleural effusion Is this a current diagnosis for this admission?: Yes (4) Hypoalbuminemia Is this a current diagnosis for this admission?: Yes (5) Alcoholic liver disease Is this a current diagnosis for this admission?: Yes - Additional Information Resuscitation Status: Full Code Discharge Activity: No Lifting/Push/Pulling Referrals: POLLO BESS MD [Primary Care Provider] - Prescriptions: Tramadol HCl [Ultram 50 mg Tablet] 50 mg PO Q8HP PRN #90 tab PRN Reason: Home Medications: Fluticasone/Salmeterol [Advair 250-50 Diskus 14 Dose/Diskus] 1 puff IH Q12 12/01/17 Montelukast Sodium [Singulair 10 mg Tablet] 10 mg PO QPM 12/01/17 Gabapentin [Neurontin 300 mg Capsule] 600 mg PO Q8 01/10/19 Tramadol HCl [Ultram 50 mg Tablet] 50 mg PO Q8HP PRN #90 tab 07/26/20 History of Present Illiness History of Present Illness: SANDEEP GONZALEZ is a 64 year old male He came to the office for evaluation of yellowness of his sclera, lower extremity pain, he was evaluated in the office, it was felt that patient needed inpatient care. The initial blood work that was done demonstrated severe anemia, hemoglobin of 5, there was hyperbilirubinemia, predominantly bilirubin, elevated alkaline phosphatase that suggest obstructive jaundice. A CAT scan of the abdomen and pelvis with IV contrast was obtained, it demonstrated moderate right and trace left effusion with overlying airspace opacities, the visualized hepatic parenchyma appears diffusely hypodense suggesting hepatic steatosis, It is to be noted that patient has a history of alcohol Consumption until the last 4 months he said he has not took alcohol.. The gallbladder is moderately distended and demonstrates no evidence of calcified stones, the pancreas is unremarkable, The CAT scan did not demonstrate dilated common bile duct or intrahepatic duct, The iron indices suggest severe iron deficiency, On direct questioning he has no other recent colonoscopy, he will be transfused with packed red blood cells I will consult endoscopist either GI or the surgeon for colonoscopy and EGD Hospital Course Hospital Course: Patient was admitted for the management of iron deficiency anemia, pleural effusion, hypoalbuminemia, hyperbilirubinemia .He received 4 units of packed red blood cells, on admission the hemoglobin was 5. He has very low iron he underwent EGD and colonoscopy this was done by the surgeon Dr. Silverman. There was no significant findings to explain the iron deficiency anemia. He has ulcer in the middle esophagus. He also received iron infusion, Injectafer first dose due for second dose in 7 days .He has significant hypoalbuminemia with third spacing he underwent thoracentesis, 900 cc of pleural fluid was collected, the analysis is still pending as of the time of discharge but this most likely a transudate from the low albumin.I advised him of the need to completely stop drinking alcohol, There is no other explanation for the hypoalbuminemia other than liver disease, he has proteinuria but the urine protein creatinine ratio is normal suggesting no significant protein loss in the urine. He will follow outpatient with Dr. Kowalski. I discussed the case with him as well. The hyperbilirubinemia is of obstructive pattern but the imaging including CAT scan of the abdomen and pelvis and MRCP did not demonstrate any lesions of the common bile duct or intrahepatic duct. Physical Exam Vital Signs: Temp Pulse Resp BP Pulse Ox 98.7 F 83 17 135/72 H 100 07/26/20 15:18 07/26/20 15:18 07/26/20 15:18 07/26/20 15:18 07/26/20 15:18 Intake & Output 07/25/20 07/26/20 07/27/20 06:59 06:59 06:59 Intake Total 1195 3315 225 Output Total 1000 700 400 Balance 195 2615 -175 Weight 77.8 kg 77.8 kg General appearance: PRESENT: no acute distress Eye exam: PRESENT: PERRLA Respiratory exam: PRESENT: clear to auscultation janet Cardiovascular exam: PRESENT: +S1, +S2 GI/Abdominal exam: PRESENT: soft Neurological exam: PRESENT: alert Results Laboratory Results: WBC 11.6 10^3/uL (4.0-10.5) H 07/25/20 06:08 RBC 3.60 10^6/uL (4.35-5.55) L 07/25/20 06:08 Hgb 10.7 g/dL (13.5-17.0) L 07/25/20 06:08 Hct 32.1 % (37.9-51.0) L 07/25/20 06:08 MCV 89 fl (80-97) 07/25/20 06:08 MCH 29.7 pg (27.0-33.4) 07/25/20 06:08 MCHC 33.4 g/dL (32.0-36.0) 07/25/20 06:08 RDW 16.1 % (11.5-14.0) H 07/25/20 06:08 Plt Count 358 10^3/uL (150-450) 07/25/20 06:08 Lymph % (Auto) 10.8 % (13-45) L 07/25/20 06:08 [place] % (Auto) 7.7 % (3-13) 07/25/20 06:08 Eos % (Auto) 1.2 % (0-6) 07/25/20 06:08 Baso % (Auto) 0.6 % (0-2) 07/25/20 06:08 Reticulocyte # 0.062 10^6/uL (0.028-0.122) 07/22/20 19:53 Absolute Neuts (auto) 9.2 10^3/uL (1.7-8.2) H 07/25/20 06:08 Absolute Lymphs (auto) 1.2 10^3/uL (0.5-4.7) 07/25/20 06:08 Absolute Monos (auto) 0.9 10^3/uL (0.1-1.4) 07/25/20 06:08 Absolute Eos (auto) 0.1 10^3/uL (0.0-0.6) 07/25/20 06:08 Absolute Basos (auto) 0.1 10^3/uL (0.0-0.2) 07/25/20 06:08 Seg Neutrophils % 79.7 % (42-78) H 07/25/20 06:08 Retic Count (auto) 3.49 % (0.66-2.85) H 07/22/20 19:53 PT 17.6 SEC (11.4-15.4) H 07/24/20 11:27 INR 1.43 07/24/20 11:27 APTT 49.4 SEC (23.5-35.8) H 07/24/20 11:27 Sodium 135.3 mmol/L (137-145) L 07/25/20 06:08 Potassium 4.0 mmol/L (3.6-5.0) 07/25/20 06:08 Chloride 109 mmol/L (98-107) H 07/25/20 06:08 Carbon Dioxide 17 mmol/L (22-30) L 07/25/20 06:08 Anion Gap 9 (5-19) 07/25/20 06:08 BUN 6 mg/dL (7-20) L 07/25/20 06:08 Creatinine 0.50 mg/dL (0.52-1.25) L 07/25/20 06:08 Est GFR ( Amer) > 60 (>60) 07/25/20 06:08 Est GFR (MDRD) Non-Af > 60 (>60) 07/25/20 06:08 Glucose 79 mg/dL (75-110) 07/25/20 06:08 Calcium 9.0 mg/dL (8.4-10.2) 07/25/20 06:08 Iron < 10.1 ug/dL (49-181) L 07/22/20 19:53 TIBC 188 ug/dL (250-450) L 07/22/20 19:53 Iron Saturation UNABLE TO CALCULATE % (20% - 50%) 07/22/20 19:53 Ferritin 783.00 ng/mL (17.9-464.0) H 07/22/20 19:53 Total Bilirubin 5.2 mg/dL (0.2-1.3) H 07/25/20 06:08 Direct Bilirubin 3.8 mg/dL (0.0-0.4) H 07/25/20 06:08 Neonat Total Bilirubin Not Reportable 07/25/20 06:08 Neonat Direct Bilirubin Not Reportable 07/25/20 06:08 Neonat Indirect Bili Not Reportable 07/25/20 06:08 AST 84 U/L (17-59) H 07/25/20 06:08 ALT 30 U/L (<50) 07/25/20 06:08 Alkaline Phosphatase 205 U/L (38-126) H 07/25/20 06:08 Lactate Dehydrogenase 225 U/L (120-246) 07/24/20 11:27 Total Protein 7.6 g/dL (6.3-8.2) 07/25/20 06:08 Albumin 2.7 g/dL (3.5-5.0) L 07/25/20 06:08 Carcinoembryonic Ag 3.09 ng/mL (<3.0) H 07/23/20 19:52 Vitamin B12 > 1000.0 pg/mL (239-931) H 07/22/20 19:53 Folate 5.79 ng/mL (>2.76) 07/22/20 19:53 TSH 1.87 uIU/mL (0.47-4.68) 07/22/20 17:13 Free T4 1.68 ng/dL (0.78-2.19) 07/22/20 17:13 Urine Color SHANNON 07/22/20 17:45 Urine Appearance SLIGHTLY-CLOUDY 07/22/20 17:45 Urine pH 6.0 (5.0-9.0) 07/22/20 17:45 Ur Specific [place] 1.015 07/22/20 17:45 Urine Protein 30 mg/dL (NEGATIVE) H 07/22/20 17:45 Urine Glucose (UA) NEGATIVE mg/dL (NEGATIVE) 07/22/20 17:45 Urine Ketones NEGATIVE mg/dL (NEGATIVE) 07/22/20 17:45 Urine Blood NEGATIVE (NEGATIVE) 07/22/20 17:45 Urine Nitrite NEGATIVE (NEGATIVE) 07/22/20 17:45 Urine Bilirubin SMALL (NEGATIVE) H 07/22/20 17:45 Urine Urobilinogen 4.0 mg/dL (<2.0) H 07/22/20 17:45 Ur Leukocyte Esterase MODERATE (NEGATIVE) H 07/22/20 17:45 Urine WBC (Auto) 52 /HPF 07/22/20 17:45 Urine RBC (Auto) 0 /HPF 07/22/20 17:45 U Hyaline Cast (Auto) 1 /LPF 07/22/20 17:45 Urine Bacteria (Auto) 3+ /HPF 07/22/20 17:45 Urine Mucus (Auto) RARE /LPF 07/22/20 17:45 Urine Creatinine 152.5 mg/dL (22-328) 07/22/20 17:45 Protein/Creatinin Ratio 0.2 mg/mg (0.0-0.2) 07/22/20 17:45 Urine Total Protein 32.6 mg/dL (<12) H 07/22/20 17:45 Urine Ascorbic Acid NEGATIVE (NEGATIVE) 07/22/20 17:45 Fluid Type PLEURAL 07/25/20 11:20 Fluid Source LUNG 07/25/20 11:20 Fluid Color YELLOW 07/25/20 11:20 Fluid Appearance CLOUDY 07/25/20 11:20 Fluid Viscosity LIQUID 07/25/20 11:20 Fluid WBC 278 /uL 07/25/20 11:20 Fluid RBC 149 /uL 07/25/20 11:20 Fluid Seg Neutrophils 70 % 07/25/20 11:20 Fluid Lymphocytes 17 % 07/25/20 11:20 Fluid Monocytes 13 % 07/25/20 11:20 Fluid Eosinophils 0 % 07/25/20 11:20 Fluid Basophils 0 % 07/25/20 11:20 Stool Occult Blood NEGATIVE (NEGATIVE) 07/23/20 11:10 Influenza A (RT-PCR) NEGATIVE (NEGATIVE) 07/24/20 13:10 Influenza B (RT-PCR) NEGATIVE (NEGATIVE) 07/24/20 13:10 RSV (RT-PCR) NEGATIVE (NEGATIVE) 07/24/20 13:10 SARS-CoV-2 Rap RNA(RT-PCR) NEGATIVE (NEGATIVE) 07/24/20 13:10 Blood Type O POSITIVE 07/25/20 00:39 Blood Type Confirm O POSITIVE 07/22/20 21:55 Antibody Screen NEGATIVE 07/25/20 00:39 Crossmatch See Detail 07/22/20 19:53 Impressions: Abdomen/Pelvis CT 07/22/20 00:00 IMPRESSION: No acute process is seen within the abdomen or pelvis. Hepatic steatosis There is a moderate right and trace left effusion with overlying airspace opacities. These may reflect atelectasis or infection. Abdomen MRI 07/24/20 00:00 IMPRESSION: Distended gallbladder with possible pericholecystic edema. Study is degraded by patient respiratory motion. Correlation with ultrasound is recommended. No intra or extrahepatic biliary ductal dilatation. No ductal filling defects. Chest X-Ray 07/25/20 00:00 IMPRESSION: No pneumothorax. Minimal pleural effusions. Limited opacification in the medial right base, atelectasis versus pneumonia. Thoracentesis Ultrasound 07/25/20 00:00 IMPRESSION: SUCCESSFUL RIGHT THORACENTESIS USING ULTRASOUND GUIDANCE. Chest X-Ray 07/25/20 13:45 IMPRESSION: No pneumothorax. Minimal right pleural effusion. Minimal opacification in the medial right base, atelectasis versus pneumonia. Stroke Is this a Stroke Patient?: No Acute Heart Failure Is this a Heart Failure Patient?: No
[2020-07-27 11:45] LABS: ALBUMIN BODY FLUID 1.1 g/dL (Not Estab.); TOTAL PROTEIN BODY FLUID 3.1 g/dL (.)
== END 2020-07-26 16:53 | disposition home or self-care (01) | DRG 812 ==
LOC: 4S 14:12
PROVIDERS: ADMIT Internal Medicine; ATTEND Internal Medicine
PROC: 0DJD8ZZ Inspection of Lower Intestinal Tract, Via Natural or Artificial Opening Endoscopic (ICD-10-PCS; 2020-07-22)
PROC: 30233N1 Transfusion of Nonautologous Red Blood Cells into Peripheral Vein, Percutaneous Approach (ICD-10-PCS; 2020-07-22)
PROC: 30233L1 Transfusion of Nonautologous Fresh Plasma into Peripheral Vein, Percutaneous Approach (ICD-10-PCS; 2020-07-25)
PROC: 0W993ZX Drainage of Right Pleural Cavity, Percutaneous Approach, Diagnostic (ICD-10-PCS; principal; 2020-07-25 07:30)
PROC: 0DJ08ZZ Inspection of Upper Intestinal Tract, Via Natural or Artificial Opening Endoscopic (ICD-10-PCS; 2020-07-25 07:30)
DX: D50.0 Iron deficiency anemia secondary to blood loss (chronic) (principal); J90 Pleural effusion, not elsewhere classified; K22.10 Ulcer of esophagus without bleeding; K70.9 Alcoholic liver disease, unspecified; I73.9 Peripheral vascular disease, unspecified; K21.9 Gastro-esophageal reflux disease without esophagitis; M19.90 Unspecified osteoarthritis, unspecified site; E88.09 Other disorders of plasma-protein metabolism, not elsewhere classified; Z20.822 Contact with and (suspected) exposure to COVID-19; K29.80 Duodenitis without bleeding; K29.70 Gastritis, unspecified, without bleeding; K57.30 Diverticulosis of large intestine without perforation or abscess without bleeding; K64.8 Other hemorrhoids; R97.0 Elevated carcinoembryonic antigen [CEA]; Z87.891 Personal history of nicotine dependence; Z88.8 Allergy status to other drugs, medicaments and biological substances; Z72.89 Other problems related to lifestyle
CPT/HCPCS: 32555; 36415; 36430; 43235; 45378; 71045; 71046; 74177; 74181; 80048; 80053; 80076; 81001; 813; 82042; 82150; 82272; 82378; 82570; 82607; 82728; 82746; 82945; 83540; 83550; 83615; 84156; 84157; 84439; 84443; 85025; 85027; 85045; 85610; 85730; 86850; 86900; 86901; 86920; 87070; 87075; 87101; 87205; 87252; 88305; 88341; 88342; 89050; 93005; 93010; 0241U; C9803; J1439; J2270; J2704; J3490; J7030; J7050; P9016; P9017